=== PATIENT | male | born 1945 | race Caucasian/White ===

== ENCOUNTER → 2023-11-24 12:09 | Outpatient (REF) | payer MEDICARE, SELFPAY ==
[2023-11-24 14:25] LABS: PSA, Total - Diagnostic < 0.06 ng/ml (0.0-4.0)
== END ==
LOC: REG 12:09
PROVIDERS: ATTENDING PHYSICIAN Specialist; FAMILY PHYSICIAN Dermatology
DX: R97.20 Elevated prostate specific antigen [PSA] (principal)
CPT/HCPCS: 36415; 84153

== ENCOUNTER 2024-05-05 15:48 | Inpatient (IN) | payer MEDICARE, SELFPAY ==
[2024-05-05] VITALS (8 sets, daily range): BP systolic 115–151; BP diastolic 57–96; BMI 27.7; BMI 27.4
--- NOTE | 2024-05-05 13:23 | ED.GENMED ---
History of Present Illness
General
Chief Complaint: Breathing Problem
Time Seen by Provider: 05/05/24 13:09
History of Present Illness
History of Present Illness:
78-year-old male with history of COPD presenting to the emergency department for shortness of breath. Patient reports for the past few days he has been feeling short of breath. He checked his oxygen yesterday, noted that oxygenation was in the
80s. He is not on any home O2. Does report mild cough. Reports that he has been feeling warm, however is unsure if he has had any fever. He denies any chest pain. Denies any abdominal pain, however notes that his urine has been dark and
malodorous. He feels like his lips are really dry. His has had a cough this past week, however reports that she was negative for COVID. Patient reports hospitalization for COPD a few years ago, otherwise has been stable on home inhalers.
Denies additional acute complaints
Past History
Past History
ED Past Medical History: Hypercholesterolemia and Other (Chronic back pain, ulcerative colitis); Negative HTN or NIDDM
ED Past Surgical History: Other (AAA repair 2000 at [facility])
Social History
Tobacco: Non-smoker
Alcohol: Occasional
Personal:
Living: with family
Employment: Retired ([employer]ired [employer])
Family History
Family History: Hypertension
Phy Exam
Physical Exam
Physical Exam:
General: Well-appearing, no clinical signs of dehydration, nontoxic and in no acute distress
HEENT: protecting airway
Neck: appears supple
CV: tachycardia, regular rhythm, no evidence of cyanosis
Resp: No accessory muscle use, no increased work of breathing, lungs clear to auscultation bilaterally
Abd: Soft and non-distended, no tenderness to palpation
Extremities: No deformities, no swelling, no erythema
Neuro: alert, no focal neurologic deficit
: deferred
Rectal: deferred
Psych: Normal affect
Skin: Intact
Scores
Heart Failure Risk
Heart Failure Risk Score: Not Applicable
Course
Orders/Labs/Results
Orders:
Orders
05/05/24 13:15
Electrocardiogram (*1) Urgent
Reason for Study: Shortness of Breath
EKG- Treatment ONCE
05/05/24 13:20
0.9% Sodium Chloride 1000 ml [Nss] 1,000 ml IV BOLUS
Acetaminophen [Tylenol] 1,000 mg PO NOW STA
CR Chest - 2 Views Urgent
Comment:
Reason For Exam: hypoxic, febrile
05/05/24 13:36
COVID-19 Antigen Urgent
Source: Nasal Swab
Complete Blood Count/With Diff Urgent
Comprehensive Metabolic Panel Urgent
Venous Blood Gas Urgent
%Oxygen/Room Air: 30
Blood Culture Q30M
ROSA Source: Blood/Venous
Specimen Description:
Blood Culture Q30M
ROSA Source: Blood/Venous
Specimen Description:
Influenza A+B Rapid Molecular Urgent
ROSA Source: Nasal Swab
Specimen Description:
05/05/24 13:37
Lactic Acid Q4H
Comment: CANCEL 2nd LACTIC ACID IF 1st LACTIC ACID IS LESS THAN 2
05/05/24 14:51
Azithromycin 500 mg/250 ml [Zithromax Infusion] 500 mg in 250 ml IV NOW
CefTRIAXone [Rocephin] 1,000 mg IV NOW STA
05/05/24 Dinner
Regular
At Your Request: Full Participation
05/05/24 15:25
Admit/Transfer Patient As Directed
Co-Sign Provider:
Level of Care: Inpatient admission
Assign to:: IMU- Intermediate Care
Physician / Group: arnold
Diagnosis: pneumonia
Reason for Hospitalization: pneumonia
Expected length of stay greater than two midnights?: Yes
ELOS- Estimated Length of Stay in days: 2
I certify the patient meets the requirements for IP care: Yes
PRN Pain Medication Management As Directed
May give lesser potent ordered pain med per pt: Yes
preference::
Protocol:: Medication orders for pain may be administered in a
manner that supports deferring to patient preference
when the pt is:
- Requesting an ordered lesser potent pain medication.
Least to most potent pain medications are defined
as: acetaminophen < NSAID < tramadol < opioids
(morphine, oxycodone, hydromorphone).
- Requesting a lesser dose of the same medication IF
ORDERED.
- Requesting a less intrusive route of administration
if both routes are prescribed by the provider (PO <
IV).
05/05/24 15:26
Code Status As Directed
Resuscitation Status: Do not resuscitate
Reached after discussion with pt or family/Healthcare POA: Yes
DNR Bracelet Application ONCE
05/05/24 15:29
Respiratory Culture/Gram Stain Urgent
ROSA Source: Sputum
Specimen Description:
05/05/24 15:30
Abdomen/Pelvis w Contrast CT [CT Abd/pelvis W Iv Cont] Urgent
Comment:
Reason For Exam: abdominal pain
05/05/24 17:46
Lactic Acid Q4H
Comment: CANCEL 2nd LACTIC ACID IF 1st LACTIC ACID IS LESS THAN 2
05/05/24 18:15
Acetaminophen [Tylenol] 650 mg PO Q4HPRN PRN
Bisacodyl [Dulcolax] 5 mg PO DAILYPRN PRN
Ipratropium/Albuterol Sulfate [Duoneb] 3 ml INH R Q4HPRN PRN
Ondansetron Injectable [Zofran] 4 mg IV Q6HPRN PRN
05/05/24 18:15
Activity As Directed
Activity Level: As Tolerated
Pneumatic Compression Sleeves As Directed
Type: Knee high
Quantify Hemopytsis As Directed
Vital Signs As Directed
Frequency: Per unit guidelines
DX Deep Vein Thrombosis Video Routine
05/05/24 20:05
Urinalysis Reflex To Culture Urgent
Date Specimen was Collected: 05/05/24
Time Specimen was Collected: 20:03
Legionella Urinary Antigen Routine
ROSA Source: Urine
Specimen Description:
Strep pneumoniae Antigen Routine
ROSA Source: Urine
Specimen Description:
05/05/24 20:13
Pro-BNP [NT-proBNP] Routine
05/05/24 22:00
Famotidine [Pepcid] 10 mg PO HS
Pantoprazole [Protonix] 40 mg PO HS
Rosuvastatin Calcium [Crestor] 20 mg PO HS
Tamsulosin [Flomax] 0.4 mg PO HS
Venlafaxine Extended Release [Effexor Xr] 37.5 mg PO HS
Zolpidem Tartrate [Ambien] 10 mg PO HS
naloxegol [Movantik] See Dose Instructions PO HS
05/06/24 06:00
Complete Blood Count/With Diff IN AM
Comprehensive Metabolic Panel IN AM
05/06/24 08:00
Tiotropium Paauilo 2.5 Mcg [Spiriva Respimat 2.5 Mcg] 2 puff INH R DAILY
05/06/24 14:00
Azithromycin 500 mg/250 ml [Zithromax Infusion] 500 mg in 250 ml IV Q24H
CefTRIAXone [Rocephin] 1,000 mg IV Q24H
Abnormal Lab Results
05/05/24 05/05/24
13:36 13:37
RBC 4.41 L 10^6/uL
(4.70-6.10)
MCHC 32.6 L g/dL
(33.0-37.0)
RDW 15.6 H %
(11.5-14.5)
Abs Immat Gran (auto) 0.1 H 10^3/uL
(0-0.05)
Absolute Neuts (auto) 6.6 H 10^3/uL
(1.4-6.5)
Absolute Lymphs (auto) 0.6 L 10^3/uL
(1.2-3.4)
Absolute Monos (auto) 0.9 H 10^3/uL
(0.1-0.6)
Immature Gran % 0.6 H %
(0-0.5)
Neutrophils % 77.7 H %
(42.2-75.2)
Lymphocytes % 7.3 L %
(20.5-51.1)
Monocytes % 10.2 H %
(1.7-9.3)
Carbon Dioxide 21 L mmol/L
(22-30)
Creatinine 0.6 L mg/dL
(0.7-1.3)
Glucose 114 H mg/dl
(70-99)
Lactic Acid 2.3 H mmol/L
(0.7-2.0)
Total Bilirubin 1.4 H mg/dl
(0.2-1.3)
05/05/24 13:36
05/05/24 13:36
Vital Signs
Initial and Last Documented VS:
Initial Vital Signs
Temp Pulse Resp BP Pulse Ox
98.0 F 109 20 147/81 76
05/05/24 13:00 05/05/24 13:00 05/05/24 13:00 05/05/24 13:00 05/05/24 13:00
Last Documented Vital Signs
Temp Pulse Resp BP Pulse Ox
97.3 F 80 29 151/91 94
05/05/24 19:30 05/05/24 19:00 05/05/24 19:00 05/05/24 18:23 05/05/24 19:00
MDM/Problems Addressed
MDM/Problems Addressed:
78-year-old male with history of COPD presenting for difficulty breathing. Vital signs on arrival significant for fever, tachycardia, hypoxia.
Patient noted to be significantly hypoxic on room air on arrival, 76%. Patient placed on nasal cannula, now stabilized on 6 L. No significant increased work of breathing, mild tachypnea. Lungs however without obvious focal lung sounds. Vital
signs are meeting SIRS criteria, concern for under infection with suspected source being pulmonary. Plan for viral swabs and chest x-ray imaging. Will laboratory analysis including blood cultures and lactic acid. Will start patient on IV fluids
and administer Tylenol for fever
15:50 -chest x-ray shows worsening pulmonary fibrosis from prior x-ray imaging with possible superimposed pneumonia. In the setting of hypoxia and fever with elevated lactic acid, will start on antibiotics. Lactic acid is greater than 2, however
less than 4 and blood pressure remains stable without concern for septic shock or severe sepsis. Will continue IV fluids as clinically indicated. Patient will require admission. Patient updated and agreeable to plan
*EKG
Interpreted by ED Provider?: Yes
EKG Intrepretation Date: 05/05/24
EKG Intrepretation Time: 13:32
Interpretation: normal
Comparison EKG: no changes
Heart Rate: 95
Rate: normal
Rhythm: sinus
Kinsman: normal axis
Interval: normal interval
QRS Pattern: normal QRS
Ischemia: no ischemia
*Critical Care Note
Total Time (30-74mins, 75-104mins- exclusive of procedures): 37
comment:
The high probability of a clinically significant, sudden or life threatening deterioration of the pulmonary, sepsis system(s) required my full and direct attention, intervention and personal management. The aggregate critical care time was 37
minutes. This time is in addition to time spent performing reported procedures but includes the following:
[x] Data Review and interpretation
[x] Patient assessment and monitoring of vital signs
[x] Documentation
[x] Medication orders and management
ED Attending Note
-
Portions of this chart may have been created with voice recognition software.� Occasional wrong word or��sound alike� substitutions may have occurred due to the inherent limitations of voice recognition software.
Discharge Plan
Departure
Patient Disposition: Admit
Date of Disposition: 05/05/24
Time of Disposition: 14:54
Presentation/result/management discussed w/ accepting MD/DO: Hospitalist
Condition: Fair
Discharge Problem:
Pneumonia, Sepsis, Hypoxia
Interventions
Interventions:
*Risk Screen - Suicide Last Done: 05/05/24 13:00
*General Assessment Last Done: 05/05/24 13:00
*Neglect/Abuse Screening Last Done: 05/05/24 13:00
ED- Fall Risk Assessment Last Done: 05/05/24 16:11
*ED COVID-19 Vaccine History Last Done: 05/05/24 18:26
*Nursing Disposition Last Done: 05/05/24 18:26
ED- Cardiac Assessment Last Done: 05/05/24 16:11
ED- Pulmonary Assessment Last Done: 05/05/24 16:11
Discharge Date and Time
Discharge Date/Time: 05/05/24 18:26
[2024-05-05] MEDS: TYLENOL 1000 MG PO (13:29)
[2024-05-05] MEDS: NSS 1000 IV (13:30)
[2024-05-05 13:57] LABS: % Basophils 0.5 % (0-2); % Eosinophils 3.7 % (0-6); % Immature Granulocytes 0.6 % (0-0.5); % Lymphocytes 7.3 % (20.5-51.1); % Monocytes 10.2 % (1.7-9.3); % Neutrophils 77.7 % (42.2-75.2); Absolute Eosinophils 0.3 10^3/uL (0-0.7); Absolute Immature Granulocytes 0.1 10^3/uL (0-0.05); Absolute Lymphocytes 0.6 10^3/uL (1.2-3.4); Absolute Monocytes 0.9 10^3/uL (0.1-0.6); Absolute Neutrophils 6.6 10^3/uL (1.4-6.5); Hematocrit 40.5 % (39.0-52.0); Hemoglobin 13.2 g/dL (13.0-18.0); Mean Corp Hgb Conc. 32.6 g/dL (33.0-37.0); Mean Corpuscular Hgb 29.9 pg (27.0-31.0); Mean Corpuscular Volume 91.8 fL (80.0-94.0); Mean Platelet Volume 8.7 fL (7.4-10.4); Nucleated Red Blood Cells % 0 % (-); Platelet Count 249 10^3/uL (130-400); Red Blood Cell Count 4.41 10^6/uL (4.70-6.10); Red Cell Dist. Width 15.6 % (11.5-14.5); White Blood Cell Count 8.5 10^3/uL (4.8-10.8)
[2024-05-05 13:58] LABS: Venous Blood Gas B.E. -2.7 mmol/L (-4 to +4); Venous Blood Gas HCO3 22.6 mmol/L (22-27); Venous Blood Gas pCO2 40 mmHg (35-48); Venous Blood Gas pH 7.36 (7.32-7.43); Venous Blood Gas pO2 44 mmHg (30-50)
[2024-05-05 14:10] LABS: ALT (SGPT) 21 U/L (0-50); AST (SGOT) 25 U/L (17-59); Albumin 4.4 g/dl (3.5-5.0); Alkaline Phosphatase 88 U/L (38-126); Blood Urea Nitrogen 12 mg/dl (9-20); Calcium 9.3 mg/dl (8.4-10.2); Carbon Dioxide 21 mmol/L (22-30); Chloride 99 mmol/L (98-107); Glucose 114 mg/dl (70-99); Potassium 4.1 mmol/L (3.5-5.1); Sodium 136 mmol/L (135-145); Total Bilirubin 1.4 mg/dl (0.2-1.3); Total Protein 7.5 g/dl (6.3-8.2); eGFR > 60.00
[2024-05-05 14:26] LABS: COVID-19 Antigen Negative (Negative)
[2024-05-05 14:40] LABS: Lactic Acid 2.3 mmol/L (0.7-2.0)
--- NOTE | 2024-05-05 15:31 | HPS.HSE ---
Family Physician
-
Family Physician: Chris Owens [facility]
Chief Complaint
-
shortness of breath
History of Present Illness
78-year-old male past medical history of ILD,, COPD, hyperlipidemia, chronic back pain on opiates, abdominal aortic aneurysm status post repair with stent a year ago, prostate cancer, insomnia, presenting for shortness of breath ongoing for the past
few days. He checked his oxygen level which was in the 80s yesterday. He has mild cough which is productive a little bit with slight amount of blood-tinged sputum. He has been feeling warm and thinks he may have had a fever. Denies chest pain.
He has been having ongoing abdominal discomfort over the past several months sometimes with bloating. Sometimes radiates to back. Denies any weight loss. Denies any nausea or vomiting. He does have a history of opioid-induced constipation but
did have a bowel movement yesterday.
He did have abdominal aortic aneurysm repair within the past year with stent placement.
His had a cough this past week. She was negative for COVID.
His urine has been dark and malodorous. Denies any blood in the urine.
Medical History
Past Medical History
Past Medical History: Reports Other ( ILD,, COPD, hyperlipidemia, chronic back pain on opiates, abdominal aortic aneurysm status post repair with stent a year ago, prostate cancer, insomnia,)
Past Surgical History: Reports None
Social History
Tobacco: Former Smoker
Alcohol: None
Drug: None
Family History
Family History: Not pertinent
Allergies / Home Medications
Allergies reflects when Allergies were last updated in [facility].
Home Medications with original date entered in [facility]
Allergy/Medication List:
Allergies
Allergy/AdvReac Type Severity Reaction Status Date / Time
fentanyl Allergy Intermediate Rash Verified 05/05/24 13:04
Home Medications
naloxegol 25 mg tablet (Movantik) 25 mg PO HS Gastrointestinal issue 03/24/22
rosuvastatin 20 mg tablet 20 mg PO HS High cholesterol 03/24/22
zolpidem 10 mg tablet (Ambien) 10 mg PO HS insomnia 03/24/22
albuterol sulfate 90 mcg/actuation aerosol inhaler (Ventolin HFA) 2 puff inhalation R Q6HPRN PRN shortness of breath or wheezing 05/05/24
bisacodyl 5 mg tablet,delayed release (Dulcolax (bisacodyl)) 5 mg PO DAILYPRN PRN constipation 05/05/24
famotidine 10 mg tablet 10 mg PO HS Gastrointestinal Issue 05/05/24
oxycodone-acetaminophen 10 mg-325 mg tablet 1 tab PO Q4H pain 05/05/24
pantoprazole 40 mg tablet,delayed release 40 mg PO HS Gastrointestinal Issue 05/05/24
tamsulosin 0.4 mg capsule 0.4 mg PO HS 05/05/24
tiotropium bromide 2.5 mcg/actuation mist for inhalation (Spiriva Respimat) 2 inh inhalation R DAILY 05/05/24
venlafaxine 37.5 mg capsule,extended release 24 hr 37.5 mg PO HS 05/05/24
Review of Systems
-
History Source: Patient
A 12 point ROS was completed and negative except as noted: Yes
Constitutional: Reports No Symptoms
EENT: Reports No Symptoms
Respiratory: Reports See HPI
Cardiac: Reports No Symptoms
Abdomen/GI: Reports No Symptoms
: Reports No Symptoms
Musculoskeletal: Reports No Symptoms
Skin: Reports No Symptoms
Neurological: Reports No Symptoms
Endocrine: Reports No Symptoms
Hematologic/Lymphatic: Reports No Symptoms
Psych: Reports No Symptoms
Physical Exam
Vital Signs
Vital Signs
Temp Pulse Resp BP Pulse Ox
98.0 F 88 25 147/81 91
05/05/24 13:00 05/05/24 14:45 05/05/24 14:45 05/05/24 13:00 05/05/24 14:45
Physical Exam
General: Well Developed, Well Nourished and No Apparent Distress
HEENT: NormoCephalic, Moist mucous membranes and Atraumatic
Respiratory: Rales
Cardiac: S1/S2 and Regular Rhythm; No Murmur or Rub
GI: Soft, Non Tender, Non Distended and Normal Bowel Sounds; No Organomegaly
Rectal: Deferred by Provider
Musculoskeletal: No Clubbing, No Cyanosis and No Edema
Skin: No Rash
Neuro: Nonfocal/grossly intact
Laboratory Results
-
05/05/24 13:36
05/05/24 13:36
Laboratory Results
Lactic Acid 2.3 mmol/L (0.7-2.0) H 05/05/24 13:37
Total Bilirubin 1.4 mg/dl (0.2-1.3) H 05/05/24 13:36
AST 25 U/L (17-59) 05/05/24 13:36
ALT 21 U/L (0-50) 05/05/24 13:36
Alkaline Phosphatase 88 U/L (38-126) 05/05/24 13:36
Data Reviewed
-
Lab Data: Labs Reviewed by me
Old Records: Reviewed
Impression/Plan
-
IMPRESSION:
PLAN:
# Hypoxemic respiratory insufficiency secondary to superimposed pneumonia on worsening of ILD
-Bilateral crackles in all lung zambrano without wheezing
-Patient currently on 10 L mid flow
-Slight amount of hemoptysis, quantify hemoptysis
-Check blood cultures
-Ceftriaxone/azithromycin
-DuoNebs as needed
-Pulmonary consulted
# Chronic abdominal discomfort unclear etiology
-Suspect could be due to constipation versus gastritis
-Check CT abdomen pelvis
-Doubt that this is related to abdominal aortic aneurysm repair
# Dark/malodorous urine
-Check urinalysis
History of COPD
Former smoker
-Continue tiotropium
Hyperlipidemia
-Continue statin
Chronic back pain on opiates
-Continue Percocet
Abdominal aortic aneurysm status post repair
Insomnia
-Continue Ambien
Anxiety/depression
-Continue venlafaxine
History of prostate cancer
-Continue tamsulosin
GERD
-Continue Pepcid, Protonix
Opioid-induced constipation
-Continue Movantik
DNR/DNI
DVT prophylaxis�SCDs
Regular diet
[2024-05-05] MEDS: ROCEPHIN 1000 MG IV (15:34)
[2024-05-05] MEDS: ZITHROMAX INFUSION 250 IV (15:37)
--- NOTE | 2024-05-05 19:11 | PTCARENOTE ---
Received patient on admission from ED via stretcher with 11L midflow in use. Patient walked from stretcher to bed with assistance from ED RN. +GANDARA noted but patient not c/o SOB. HRR, ST on monitor; POx 94-95%, so O2 decreased to 10L. Lungs
diminished and coarse bibasilar. Ox3, at bedside; patient instructed in call pulido system and not to get OOB unless accompanied by staff. Report given to oncoming shift.
[2024-05-05 20:13] LABS: Urine Albumin Negative (Neg - Trace); Urine Bilirubin Negative (Negative); Urine Character Clear (Clear); Urine Color Yellow; Urine Glucose Negative (Negative); Urine Ketone Negative (Negative); Urine Leukocyte Negative (Negative); Urine Nitrite Negative (Negative); Urine Occult Blood Negative (Negative); Urine Urobilinogen Negative (Neg - 1+)
[2024-05-05 20:45] LABS: NT-proBNP 735 pg/ml
[2024-05-05] MEDS: ROXICODONE PO ×2 (21:57→23:36)
[2024-05-05] MEDS: CRESTOR 20 MG PO (21:58)
[2024-05-05] MEDS: AMBIEN 10 MG PO (21:58)
[2024-05-05] MEDS: PEPCID 10 MG PO (21:58)
[2024-05-05] MEDS: EFFEXOR XR 37.5 MG PO (21:58)
[2024-05-05] MEDS: PROTONIX 40 MG PO (21:58)
[2024-05-05] MEDS: TYLENOL PO ×2 (21:58→23:36)
[2024-05-05] MEDS: FLOMAX 0.4 MG PO (21:58)
--- NOTE | 2024-05-05 23:13 | PTCARENOTE ---
Assumed care of pt at shift change; Pt resting comfortably in bed; OOB x 1 assist to bathroom, Pt very GANDARA. SpO2 down to low 80's with exertion on 10L O2 via MF cannula. Assisted back to bed with SpO2 returning to 92-94%, Instructed Pt to use
urinal on side of bed to reduce amount of exertion. AAO x 3; NSR with PAC's on monitor. Will continue to monitor and assess.
[2024-05-06] VITALS (12 sets, daily range): BP systolic 111–145; BP diastolic 55–109; BMI 27.6
[2024-05-06] MEDS: ROXICODONE 10 MG PO ×3 (02:40→20:26)
[2024-05-06] MEDS: TYLENOL 325 MG PO ×2 (02:40→20:24)
[2024-05-06] MEDS: DUONEB 3 ML INH ×5 (03:08→17:49)
[2024-05-06 05:35] LABS: ALT (SGPT) 22 U/L (0-50); AST (SGOT) 25 U/L (17-59); Albumin 3.4 g/dl (3.5-5.0); Alkaline Phosphatase 78 U/L (38-126); Blood Urea Nitrogen 10 mg/dl (9-20); Calcium 8.6 mg/dl (8.4-10.2); Carbon Dioxide 20 mmol/L (22-30); Chloride 103 mmol/L (98-107); Estimated Creatinine Clearance 95 ml/min; Glucose 151 mg/dl (70-99); Potassium 3.9 mmol/L (3.5-5.1); Sodium 134 mmol/L (135-145); Total Bilirubin 0.9 mg/dl (0.2-1.3); eGFR > 60.00
[2024-05-06 05:39] LABS: % Basophils 0.2 % (0-2); % Eosinophils 2.8 % (0-6); % Immature Granulocytes 0.4 % (0-0.5); % Lymphocytes 6.8 % (20.5-51.1); % Monocytes 9.9 % (1.7-9.3); % Neutrophils 79.9 % (42.2-75.2); Absolute Eosinophils 0.2 10^3/uL (0-0.7); Absolute Lymphocytes 0.6 10^3/uL (1.2-3.4); Absolute Monocytes 0.8 10^3/uL (0.1-0.6); Absolute Neutrophils 6.6 10^3/uL (1.4-6.5); Hematocrit 31.8 % (39.0-52.0); Hemoglobin 10.6 g/dL (13.0-18.0); Mean Corp Hgb Conc. 33.3 g/dL (33.0-37.0); Mean Platelet Volume 8.8 fL (7.4-10.4); Nucleated Red Blood Cells % 0 % (-); Platelet Count 192 10^3/uL (130-400); Red Blood Cell Count 3.42 10^6/uL (4.70-6.10); Red Cell Dist. Width 15.5 % (11.5-14.5); White Blood Cell Count 8.2 10^3/uL (4.8-10.8)
--- NOTE | 2024-05-06 07:55 | CON.VAS ---
Consultation
Consultation Request
Performing Provider: Ankur
Reason for Consultation: AAA/abdominal pain
Medical History
-
Chief Complaint: Shortness of breath
History of Present Illness:
78-year-old male with past medical history COPD, hyperlipidemia, chronic back pain, open AAA repair in 1999 at [facility], recent (3 to 6 months) iliac stenting at [facility], prostate cancer in remission presented to the ER with shortness of breath last night.
Patient had noticed his oxygen levels had been in the 80s for most of the day. Had a somewhat productive cough with some blood-tinged sputum. Was unsure if he had had fevers. COVID-negative. On admission patient admitted to abdominal discomfort
consistently over the last few months. Patient is chronically on opiates for back pain and has issues with constipation and bloating.
CT of the abdomen:
'Small hiatal hernia.
Markedly limited evaluation of intestinal tract without oral contrast, cannot exclude acute inflammatory/infectious bowel pathology. No intestinal obstruction or free air.
Suprarenal abdominal aortic aneurysm measuring approximately 5.6 cm in greatest dimension.
Findings suggesting right common iliac artery stent.
0.9 cm slightly hyperenhancing splenic lesion most likely a benign hemangioma.'
Vascular consult for AAA.
Patient seen at bedside this a.m. Patient resting comfortably. When questioned about his abdominal discomfort patient states he has had consistent mild abdominal discomfort since his open AAA repair in [address] [facility] [address] Ray. On palpation
patient has mild discomfort to the aorta. Patient states this is a discomfort that he lives with and it is 'tolerable'. Patient states his discomfort has not changed. Nothing makes it better or worsens it. He tells me that the pain does not
radiate anywhere.
Patient follows with his vascular surgeon (name he cannot remember since Dr. Ray retired) at [facility] very closely. Was seen as recently as 3 months ago. Patient wishes to continue to follow at [facility] for his vascular issues.
Past Medical History
Past Medical History: Cancer (Prostate, in remission), COPD, HTN, Hypercholesterolemia and Other (Chronic back pain, AAA, insomnia)
Past Surgical History: Other (Open AAA repair in [address] [facility] [address] Ray, iliac stenting 3 to 6 months ago at [facility])
Social History
Tobacco: Former Smoker
Drug: None
Personal: Single
Family History
Family History: Reviewed & Not Pertinent
Allergies / Home Medications
Allergy/AdvReac Type Severity Reaction Status Date / Time
fentanyl Allergy Intermediate Rash Verified 05/05/24 13:04
�Medication �Instructions �Recorded �Confirmed �Type
naloxegol 25 mg tablet (Movantik) 25 mg PO HS Gastrointestinal issue 03/24/22 05/05/24 History
rosuvastatin 20 mg tablet 20 mg PO HS High cholesterol 03/24/22 05/05/24 History
zolpidem 10 mg tablet (Ambien) 10 mg PO HS insomnia 03/24/22 05/05/24 History
albuterol sulfate 90 mcg/actuation 2 puff inhalation R Q6HPRN PRN 05/05/24 05/05/24 History
aerosol inhaler (Ventolin HFA) shortness of breath or wheezing
bisacodyl 5 mg tablet,delayed 5 mg PO DAILYPRN PRN constipation 05/05/24 05/05/24 History
release (Dulcolax (bisacodyl))
famotidine 10 mg tablet 10 mg PO HS Gastrointestinal Issue 05/05/24 05/05/24 History
oxycodone-acetaminophen 10 mg-325 1 tab PO Q4H pain 05/05/24 05/05/24 History
mg tablet
pantoprazole 40 mg tablet,delayed 40 mg PO HS Gastrointestinal Issue 05/05/24 05/05/24 History
release
tamsulosin 0.4 mg capsule 0.4 mg PO HS 05/05/24 05/05/24 History
tiotropium bromide 2.5 2 inh inhalation R DAILY 05/05/24 05/05/24 History
mcg/actuation mist for inhalation
(Spiriva Respimat)
venlafaxine 37.5 mg 37.5 mg PO HS 05/05/24 05/05/24 History
capsule,extended release 24 hr
Review of Systems
-
History Source: Patient
All other systems: Negative unless noted
Constitutional: Reports No Symptoms
EENT: Reports No Symptoms
Respiratory: Reports Other (Shortness of breath)
Cardiac: Reports No Symptoms
Vascular: Denies Leg Pain / Claudication
Abdomen/GI: Reports Abdominal Pain (Mild)
: Reports No Symptoms
Musculoskeletal: Reports No Symptoms
Skin: Reports No Symptoms
Neurological: Reports No Symptoms
Physical Exam
Vital Signs
Temp Pulse Resp BP Pulse Ox
99.1 F 90 17 133/80 92
05/06/24 03:19 05/06/24 06:00 05/06/24 06:00 05/06/24 06:00 05/06/24 07:30
Lab Results
05/06/24 04:51
05/06/24 04:51
Zkh-P-Pvkaxirazbh Pept 735 pg/ml 05/05/24 20:13
Physical Exam
General: No Apparent Distress
HEENT: Normocephalic and Atraumatic
Respiratory: Other (Slightly dyspneic when speaking in full sentences, recovers with rest)
Cardiac: Negative JVD
GI: Soft, Non Distended and Other (Mild tenderness to palpation-patient states is his baseline since his open AAA)
Musculoskeletal: No Clubbing and No Cyanosis
Skin: Warm
Neuro: Awake, Alert and Oriented
Psych: Calm
Pulses: Bilateral Femoral: +2
Assessment / Plan
-
78-year-old male here with shortness of breath/COPD
History of open AAA repair in 1999 and recent iliac stenting (3 to 6 months ago ), patient states he has had chronic abdominal discomfort since his surgery in 1999. Per the patient his discomfort is unchanged and tolerable.
CT suggests suprarenal abdominal aortic aneurysm measuring approximately 5.6 cm in greatest dimension
Plan:
-Will discuss with Attending. Patients discomfort does not seem to be unchanged from his baseline likely can follow-up as outpatient with his vascular surgeon at [facility].
Data Reviewed
-
CT Scan: Discussed with Patient
Labs: Labs Reviewed by me
--- NOTE | 2024-05-06 08:14 | W.PN.HOSP.TC ---
Today's Communication/Plan
-
see PN
Assessment / Plan
Assessment / Plan
78yo M with PMHx of ILD, GERD, insomnia, HLD, AAA s/p repair in 2000 and 6mo ago, BPH came with SOB became apparent 1 week before admission, admitted for ILD flare with pneumonia. Patient noticed dark-colored sputum since the onset of dyspnea, with
concern for hemoptysis on admission
Also few months of non-specific abdominal dyscomfort
A/P:
#Acute hypoxic respiratory failure on 10L midline upon discharge 2/2 ILD flare and possible pneumonia with unspecified organism
#Concern for ABPA vs hemoptysis
COVID-19 and influenza PCR neg
Check procalcitonin
check sputum Cx
legionella and S.pneumonia urinary AG pending
Bcx pending
Ceftriaxone/Azithromycin
Wean off O2 if possible
Bronchodilators
Taper steroids
Pulm consult
Check CT chest
avoid antiplatelets and anticoagulation
ProBNP elevated to 735 (previous 278 in 2021) - reasonable for Echo
#AAA s/p repair
with chronic abd discomfort
CT abd with 5.6cm AAA and illiac stent
Vascular consult
#Chronic mild anemia
anemia w/u
check FOBT
#bilirubinemia on admission
minimal
Resolved
#HLD
#Chronic pain
#GERD
#anxiety d/o
#Insomnia
#BPH with PMHX of prostate CA
#Opioid-induced constipation, chronic
cont home meds
#Irregular HR
mostly sinus on tele
cont tele
EKG
DVT ppx SCDs since also concern for hemoptysis
FUll code
I have spent at least 59min reviewing the chart, test results, communication with consukltants and direct patient care
Anticipated Discharge: > 48 hours
Subjective/Interval History
-
Date of Service: May 06, 2024
Objective Data
-
Labs:
Laboratory Results
05/06/24
04:51
WBC 8.2
Hgb 10.6 L
Hct 31.8 L
Plt Count 192 D
Sodium 134 L
Potassium 3.9
Chloride 103
Carbon Dioxide 20 L
BUN 10
Creatinine 0.6 L
Glucose 151 H
Calcium 8.6
Total Bilirubin 0.9
AST 25
ALT 22
Alkaline Phosphatase 78
Vital Signs:
Vital Signs
Temp Pulse Resp BP Pulse Ox
99.1 F 87 26 133/80 89
05/06/24 03:19 05/06/24 08:01 05/06/24 08:01 05/06/24 06:00 05/06/24 08:01
I&O
05/05/24 05/06/24 05/07/24
06:59 06:59 06:59
Intake Total 480 / 480
Output Total 950 / 950
Balance -470 / -470
Review of Systems
-
History Source: Patient
All other systems: Reviewed and negative
Respiratory: Reports Cough, Hemoptysis and Trouble Breathing
Physical Exam
-
General: No Apparent Distress
HEENT: Normocephalic and Atraumatic
Respiratory: Clear to Auscultation
Cardiac: Irregular Rhythm
GI: Soft, Nontender and Nondistended
Genito-urinary: No Costovertebral Tender
Skin: Warm
Neuro: Awake, Alert, Oriented and AO x 3
Psych: Calm
[2024-05-06] MEDS: ADVAIR HFA 230/21 MCG INHALER 2 PUFF INH ×2 (08:22→17:49)
--- NOTE | 2024-05-06 09:42 | CM ---
Chart reviewed; IA completed at bedside.
Pt admitted with Interstitial lung disease. 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 Currently on midflow; O2 sat 90 on 10L.
Marcell lives with his in a 2SH with 1STE and a full flight to the 2nd floor; (I) at baseline. No hx of VN/SNF/DME
Plan: CM to follow to coordinate discharge planning needs. Watch for home O2 needs
Pharmacy: [facility] in [place]
Pt PCP: Dr. Chris Yang
[2024-05-06] MEDS: SOLU-MEDROL PF 60 MG IV (10:05)
--- NOTE | 2024-05-06 10:45 | CON.PUL ---
Consultation
Consultation Request
Date/Time Consultation Requested: 05/06/24
Date/Time Consultation Performed: 05/06/24
Performing Provider: Juan
Reason for Consultation: ILD, hypoxemia
Medical History
-
History of Present Illness:
Patient is a 78-year-old male with previous history of ILD, COPD, hyperlipidemia presenting to ER for shortness of breath that has been ongoing for the past few days. He reportedly had oxygen desaturation at home into the 80s. He has also
comorbid mild coughing, productive mucus, abdominal discomfort, bloating. In ER, he was hypoxemic, now placed on 10L MF. CT showing worsening groundglass opacities and ILD findings compared to prior. He does feel his functional capacity has
declined. Was started on IV steroids and admitted to IMU.
Past Medical History
Past Medical History: Other (see list below)
Social History
Tobacco: Non-smoker
Alcohol: None
Drug: None
Family History
Family History: Reviewed & Not Pertinent
Allergies / Home Medications
Allergies
Allergy/AdvReac Type Severity Reaction Status Date / Time
fentanyl Allergy Intermediate Rash Verified 05/05/24 13:04
Home Medications
�Medication �Instructions �Recorded �Confirmed �Last Taken �Type
naloxegol 25 mg tablet (Movantik) 25 mg PO HS Gastrointestinal issue 03/24/22 05/05/24 05/04/24 History
rosuvastatin 20 mg tablet 20 mg PO HS High cholesterol 03/24/22 05/05/24 05/04/24 History
zolpidem 10 mg tablet (Ambien) 10 mg PO HS insomnia 03/24/22 05/05/24 05/04/24 History
albuterol sulfate 90 mcg/actuation 2 puff inhalation R Q6HPRN PRN 05/05/24 05/05/24 05/05/24 History
aerosol inhaler (Ventolin HFA) shortness of breath or wheezing
bisacodyl 5 mg tablet,delayed 5 mg PO DAILYPRN PRN constipation 05/05/24 05/05/24 Unknown History
release (Dulcolax (bisacodyl))
famotidine 10 mg tablet 10 mg PO HS Gastrointestinal Issue 05/05/24 05/05/24 05/04/24 History
oxycodone-acetaminophen 10 mg-325 1 tab PO Q4H pain 05/05/24 05/05/24 05/05/24 History
mg tablet
pantoprazole 40 mg tablet,delayed 40 mg PO HS Gastrointestinal Issue 05/05/24 05/05/24 05/04/24 History
release
tamsulosin 0.4 mg capsule 0.4 mg PO HS 05/05/24 05/05/24 Unknown History
tiotropium bromide 2.5 2 inh inhalation R DAILY 05/05/24 05/05/24 05/05/24 History
mcg/actuation mist for inhalation
(Spiriva Respimat)
venlafaxine 37.5 mg 37.5 mg PO HS 05/05/24 05/05/24 05/04/24 History
capsule,extended release 24 hr
Review of Systems
-
History Source: Patient
All other systems: Negative unless noted
Vitals / Labs / Diagnostic Testing
Vital Signs
Temp Pulse Resp BP Pulse Ox
98.2 F 101 31 123/109 88
05/06/24 08:28 05/06/24 10:00 05/06/24 10:00 05/06/24 10:00 05/06/24 10:00
Lab Data
05/06/24 04:51
05/06/24 04:51
Microbiology
05/05/24 22:04 Sputum Respiratory Culture - Final
05/05/24 22:04 Sputum Gram Stain - Final
05/05/24 20:05 Urine Legionella Urinary Antigen - Final
Negative for Legionella pneumophila Serogroup 1 antigen.
A negative result does not rule out the possiblity of
Legionella infection due to other serogroups or species of
Legionella. Clinical correlation is recommended.
05/05/24 20:05 Urine Streptococcus pneumoniae Antigen (M - Final
Negative for Streptococcus pneumoniae antigen.
A negative result does not exclude infection with
Streptococcus pneumoniae. Clinical correlation is
recommended.
05/05/24 13:36 Nasal Swab Influenza Types A & B (AMAIRANI) - Final
Negative for Influenza A & B, NAAT
Negative results must be combined with clinical observations
and patient history.
Nucleic Acid Amplification test (NAAT)performed on the
[employer] platform.
Diagnostic Testing:
Physical Exam
-
HEENT: Normocephalic, Anicteric and Moist Mucous Membranes
Cardiovascular: S1/S2 and Regular Rhythm
Respiratory: Rales and Non-Labored Respirations
GI: Soft, Non Distended and Non Tender
Neurology: Awake, Alert, Oriented and No Motor Deficits
Skin: Warm, Dry and Good Color
General: Comfortable and Other (NAD)
Assessment
-
Patient is a 78-year-old male with previous history of ILD, COPD, hyperlipidemia presenting to ER for shortness of breath that has been ongoing for the past few days. He reportedly had oxygen desaturation at home into the 80s. He has also
comorbid mild coughing, productive mucus, abdominal discomfort, bloating. In ER, he was hypoxemic, now placed on 10L MF. CT showing worsening groundglass opacities and ILD findings compared to prior. He does feel his functional capacity has
declined. We are consulted for eval.
Acute hypoxic respiratory failure on 10L MF
Acute on chronic SOB
Suspect progression of pulmonary fibrosis
Abnormal CT, increased GGOs
Lactic acidosis
Hyponatremia, mild
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
CT Chest 03/24/22 revealed mild-moderate centrilobular and paraseptal emphysematous changes; also with fibrosis/traction bronchiectasis/honeycombing
DLCO is moderately impaired at 45%. Last 6MWT showing wesley at 88% with quick recovery, not needing O2
COPD/emphysema, follows Dr Martinez
PFT obtained showing no obstruction and improved from prior.
Spiriva taken daily, continue albuterol inhaler as needed.
Mediastinal LAD: unknown chronicity and etiology, could be associated with ILD
AAA repair 1999 [facility]
Former smoker: 2 ppd for 40 y, quit Jul 1999
Chronic lumbar pain, on oxycodone
HLD
Reported ulcerative colitis
Constipation
Insomnia, on zolpidem
COVID vaccinated x2, boosted x2 (last 8 m SUPERVISOR OPERATIONS)
Fracture proximal phalanx of lesser toe (L) Mar 2021
Plan:
O2 protocol, maintained on 10L
Keep POx 90-92%
Home O2 evaluation PTD (not on home O2)-- we discussed that this may be a new need for him
SOB-progressive
CT chest reviewed with progressed findings, possible related to progression of ILD
But need to rule out infection/volume
proBNP 735
PCT pending
Placed on CAP coverage
Sputum cx ordered, first sample inadequate
Repeat as able
ECHO pending
Continue systemic CSs, IV Solu-Medrol dose reduced--40 q8
High dose causing hyperglycemia
Can slowly wean over next several days
DNs qid and prn
Guaifenesin-Mucolytic to continue
Asp precs
Acapella valve
Doubt diffuse alveolar hemorrhage given chronically stable Hgb
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
PT/OT, OOB if able
Per patient:
NM ST 1 y ago, colonoscopy 3 m ago, prostate exam 1 y ago: all normal
Flu shot 2020
COVID vaccinated and boosted
Discussed in detail with Mr Richards, all questions answered to satisfaction
Reviewed OP records
Diagnostic tests:
CXR PA/lat 03-26, c/w arc welder CT films
CXR 09-04-13: c/w 10-28-11- No gross parenchymal abnormalities. Mild elevation of R diaphragm
CT chest 05/06/24- No evidence of pulmonary embolus. Severe bilateral groundglass densities as described above. Significantly progressed. Probable interstitial lung disease. Superimposed pneumonia cannot be excluded. Moderate mediastinal and mild
left hilar lymphadenopathy. Likely reactive. Stable. Moderate emphysematous disease. Progressed.
Chest CTA 03-24-22 IMPRESSION:
1. No evidence of pulmonary embolism.
2. Findings suggesting scattered areas of pneumonitis/pneumonia and probable pulmonary edema/hemorrhage.
3. Underlying chronic interstitial changes.
TTE: pending
PFTs: as above
Reports and relevant images were personally reviewed.
Total time spent on this consultation __78__ minutes which includes review of history, physical exam, medications, laboratory data, personal review of imaging, extensive review of outpatient records, discussion with care team and respiratory therapy.
--- NOTE | 2024-05-06 12:44 | SUR.OPER ---
Patient 87-90% 10L Midflow. Patient with Dyspnea and tachypnea with eating, talking and repositioning in bed. Patient stood at bedside and O2 74-78% on 10L midflow, RR 44. Patient instructed to use urinal to void in bed, no OOB at present. Patient
verbalized understanding.
[2024-05-06 13:48] LABS: Procalcitonin 0.05 ng/ml (0.0-0.25)
[2024-05-06] MEDS: ROCEPHIN 1000 MG IV (14:12)
[2024-05-06] MEDS: STERILE WATER FOR INJECTION 10 ML IV (14:12)
[2024-05-06] MEDS: ZITHROMAX INFUSION 250 IV (14:13)
[2024-05-06] MEDS: SOLU-MEDROL PF 40 MG IV (17:51)
--- NOTE | 2024-05-06 20:57 | PTCARENOTE ---
Pt noted to have increased work of breathing with SpO2 ~ 80%; O2 increased to 15L MF with pulse ox 84-86%; Contacted GEOSCIENCE LABORATORY TECHNICIAN, rec'd order for High Flow nasal cannula. RT notified - set up High Flow @ 50L/75%. RT reported that Pt's R nare is closed
off from a deviated septum which may affect flow. Will continue to monitor and assess.
[2024-05-06] MEDS: EFFEXOR XR 37.5 MG PO (22:34)
[2024-05-06] MEDS: AMBIEN 10 MG PO (22:34)
[2024-05-06] MEDS: PEPCID 10 MG PO (22:34)
[2024-05-06] MEDS: FLOMAX 0.4 MG PO (22:34)
[2024-05-06] MEDS: PROTONIX 40 MG PO (22:34)
[2024-05-06] MEDS: CRESTOR 20 MG PO (22:34)
[2024-05-07] VITALS (12 sets, daily range): BP systolic 108–134; BP diastolic 51–81; BMI 27.1
[2024-05-07] MEDS: SOLU-MEDROL PF 40 MG IV ×3 (01:17→17:28)
[2024-05-07 07:04] LABS: % Basophils 0.1 % (0-2); % Immature Granulocytes 0.4 % (0-0.5); % Lymphocytes 3.8 % (20.5-51.1); % Monocytes 4.4 % (1.7-9.3); % Neutrophils 91.3 % (42.2-75.2); Absolute Lymphocytes 0.3 10^3/uL (1.2-3.4); Absolute Monocytes 0.4 10^3/uL (0.1-0.6); Absolute Neutrophils 7.6 10^3/uL (1.4-6.5); Hematocrit 31.4 % (39.0-52.0); Hemoglobin 10.4 g/dL (13.0-18.0); Mean Corp Hgb Conc. 33.1 g/dL (33.0-37.0); Mean Corpuscular Hgb 30.5 pg (27.0-31.0); Mean Corpuscular Volume 92.1 fL (80.0-94.0); Mean Platelet Volume 8.8 fL (7.4-10.4); Nucleated Red Blood Cells % 0 % (-); Platelet Count 201 10^3/uL (130-400); Red Blood Cell Count 3.41 10^6/uL (4.70-6.10); Red Cell Dist. Width 15.2 % (11.5-14.5); White Blood Cell Count 8.3 10^3/uL (4.8-10.8)
--- NOTE | 2024-05-07 07:20 | W.PN.VS ---
Today's Communication / Plan
-
no need for acute vasc intervention
can followup with unnamed vascular surgeon at [facility] per his routine
call with any questions
Assessment/Plan
-
AAA - ope repair at [place] in past
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
- no signs of rupture
- patient in no distress from this
- patient wants to follow up with surgeon at [facility] (who's name he cant remember)
- no need for acute vascular intervention
Subjective Data
-
Date of Service: May 07, 2024
Asked to eval for AAA
chronic lower abd pain - unchanged in past year
no acute symptoms
Objective Data
-
Vital Signs
Temp Pulse Resp BP Pulse Ox
97.7 F 89 19 120/68 89
05/07/24 03:00 05/07/24 06:00 05/07/24 06:00 05/07/24 06:00 05/07/24 06:00
Intake and Output
05/06/24 05/07/24 05/08/24
06:59 06:59 06:59
Intake Total 480 / 480 1030 / 1030
Output Total 950 / 950 1200 / 1200
Balance -470 / -470 -170 / -170
Intake:
Oral fluids 480 / 480 780 / 780
IV piggybacks 250 / 250
Output:
Urine, Voided 950 / 950 1200 / 1200
Lab Results
05/07/24 06:40
Calcium 8.6 mg/dl (8.4-10.2) 05/06/24 04:51
Total Bilirubin 0.9 mg/dl (0.2-1.3) 05/06/24 04:51
AST 25 U/L (17-59) 05/06/24 04:51
ALT 22 U/L (0-50) 05/06/24 04:51
Alkaline Phosphatase 78 U/L (38-126) 05/06/24 04:51
Total Protein 6.0 g/dl (6.3-8.2) L 05/06/24 04:51
Albumin 3.4 g/dl (3.5-5.0) L 05/06/24 04:51
Physical Exam
-
rrr
ctab
min tenderness lower abd with deep palpation
no tenderness in mid abdomen
+ PT pulses bilat
[2024-05-07 07:23] LABS: ALT (SGPT) 23 U/L (0-50); AST (SGOT) 24 U/L (17-59); Albumin 3.4 g/dl (3.5-5.0); Alkaline Phosphatase 76 U/L (38-126); Blood Urea Nitrogen 14 mg/dl (9-20); Calcium 9.1 mg/dl (8.4-10.2); Carbon Dioxide 24 mmol/L (22-30); Chloride 101 mmol/L (98-107); Estimated Creatinine Clearance 95 ml/min; Glucose 163 mg/dl (70-99); Iron 45 ug/dl (49-181); LDH 358 U/L (120-246); Potassium 4.3 mmol/L (3.5-5.1); Sodium 134 mmol/L (135-145); Total Bilirubin 0.6 mg/dl (0.2-1.3); Total Protein 6.1 g/dl (6.3-8.2); eGFR > 60.00
[2024-05-07 07:25] LABS: Reticulocyte Count 2.9 % (0.4-2.8)
[2024-05-07] MEDS: ADVAIR HFA 230/21 MCG INHALER 2 PUFF INH ×2 (07:27→20:42)
[2024-05-07] MEDS: DUONEB 3 ML INH ×4 (07:27→20:42)
[2024-05-07 07:32] LABS: Percent Saturation 18 % (20-50); Total Iron Binding Capacity 247 ug/dl (261-462)
[2024-05-07 08:41] LABS: Folate 5.1 ng/ml (2.76-20); Vitamin B12 239 pg/ml (239-931)
--- NOTE | 2024-05-07 09:58 | W.PN.HOSP.TC ---
Today's Communication/Plan
-
cont steroids, Abx
Pulm follow up
Patient confirmed DNI, but also wants to communicate with - will call her as per his request
Assessment / Plan
Assessment / Plan
78yo M with PMHx of ILD, GERD, insomnia, HLD, AAA s/p repair in 2000 and 6mo ago, BPH came with SOB became apparent 1 week before admission, admitted for ILD flare with pneumonia. Patient noticed dark-colored sputum since the onset of dyspnea, with
concern for hemoptysis on admission.
Also few months of non-specific abdominal discomfort
A/P:
#Acute hypoxic respiratory failure on 10L midline upon discharge 2/2 ILD flare and possible pneumonia with unspecified organism
#Concern for ABPA vs hemoptysis
COVID-19 and influenza PCR neg
check sputum Cx
legionella and S.pneumonia urinary AG pending
Bcx NTD
Ceftriaxone/Azithromycin - reasonable to cont even with neg Procalcitonin, plan 5 days
Wean off O2 if possible
Bronchodilators
Taper steroids
Pulm consult
CT chest: No PE, Severe bilateral groundglass densities as described above. Significantly progressed. Probable interstitial lung disease. Superimposed pneumonia cannot be excluded
avoid antiplatelets and anticoagulation with reported hemoptysis
ProBNP elevated to 735 (previous 278 in 2021) - reasonable for Echo - pending
#AAA s/p repair
with chronic abd discomfort
CT abd with 5.6cm AAA and iliac stent
Vascular consult: known postOP discomfort without concerning findings on CT
#Anemia of chronic disease
#B12 deficiency
Cyanocobalamin IM
High retics and mildly elevated LDH - check GIOVANNA
check FOBT
#bilirubinemia on admission
minimal
Resolved
#HLD
#Chronic pain
#GERD
#anxiety d/o
#Insomnia
#BPH with PMHX of prostate CA
#Opioid-induced constipation, chronic
cont home meds
#Irregular HR
mostly sinus on tele
cont tele
EKG
DVT ppx SCDs since also concern for hemoptysis
FUll code
I have spent at least 59min reviewing the chart, test results, communication with consultants and direct patient care
Anticipated Discharge: > 48 hours
Subjective/Interval History
-
Date of Service: May 07, 2024
Objective Data
-
Labs:
Laboratory Results
05/07/24
06:40
WBC 8.3
Hgb 10.4 L
Hct 31.4 L
Plt Count 201
Sodium 134 L
Potassium 4.3
Chloride 101
Carbon Dioxide 24
BUN 14
Creatinine 0.5 L
Glucose 163 H
Calcium 9.1
Total Bilirubin 0.6
AST 24
ALT 23
Alkaline Phosphatase 76
Vital Signs:
Vital Signs
Temp Pulse Resp BP Pulse Ox
97.4 F 94 29 134/78 93
05/07/24 07:25 05/07/24 08:00 05/07/24 08:00 05/07/24 08:00 05/07/24 08:00
I&O
05/06/24 05/07/24 05/08/24
06:59 06:59 06:59
Intake Total 480 / 480 1030 / 1030
Output Total 950 / 950 1200 / 1200
Balance -470 / -470 -170 / -170
Review of Systems
-
History Source: Patient
All other systems: Reviewed and negative
Physical Exam
-
General: No Apparent Distress
HEENT: Moist Mucous Membranes
Respiratory: Clear to Auscultation
GI: Soft, Nontender and Nondistended
Neuro: Awake, Alert, Oriented and AO x 3
Psych: Calm
--- NOTE | 2024-05-07 12:12 | W.PN.PUL3 ---
Today's Communication / Plan
-
Clinically worsened, now on HFNC --not on max settings yet
Continue IV steroids
ProBNP and procal negative, can likely stop abx. Repeat sputum culture as able
Continue nebs QID, add IS
Confirmed DNR status and we discussed prolongation on vent
Watchful waiting
Assessment
-
Patient is a 78-year-old male with previous history of ILD, COPD, hyperlipidemia presenting to ER for shortness of breath that has been ongoing for the past few days. He reportedly had oxygen desaturation at home into the 80s. He has also
comorbid mild coughing, productive mucus, abdominal discomfort, bloating. In ER, he was hypoxemic, now placed on 10L MF. CT showing worsening groundglass opacities and ILD findings compared to prior. He does feel his functional capacity has
declined. We are consulted for eval.
Acute hypoxic respiratory failure on 10L MF
Acute on chronic SOB
Suspect progression of pulmonary fibrosis
Abnormal CT, increased GGOs
Lactic acidosis
Hyponatremia, mild
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
CT Chest 03/24/22 revealed mild-moderate centrilobular and paraseptal emphysematous changes; also with fibrosis/traction bronchiectasis/honeycombing
DLCO is moderately impaired at 45%. Last 6MWT showing wesley at 88% with quick recovery, not needing O2
COPD/emphysema, follows Dr Martinez
PFT obtained showing no obstruction and improved from prior.
Spiriva taken daily, continue albuterol inhaler as needed.
Mediastinal LAD: unknown chronicity and etiology, could be associated with ILD
AAA repair 1999 [facility]
Former smoker: 2 ppd for 40 y, quit Jul 1999
Chronic lumbar pain, on oxycodone
HLD
Reported ulcerative colitis
Constipation
Insomnia, on zolpidem
COVID vaccinated x2, boosted x2 (last 8 m SURVEILLANCE TECHNICIAN)
Fracture proximal phalanx of lesser toe (L) Mar 2021
Plan:
O2 protocol, maintained on 10L --now on HFNC at 80%
Keep POx 90-92%
Home O2 evaluation PTD (not on home O2)-- we discussed that this may be a new need for him
SOB-progressive
CT chest reviewed with progressed findings, possible related to progression of ILD
But need to rule out infection/volume
proBNP 735
PCT neg
Placed on CAP coverage, can likely stop abx
Sputum cx ordered, first sample inadequate--repeat as able
ECHO pending
Continue systemic CSs, IV Solu-Medrol dose reduced--40 q8
High dose causing hyperglycemia
Keep current dose given worsening clinical condition
DNs qid and prn
Guaifenesin-Mucolytic to continue
Asp precs
Acapella valve
Doubt diffuse alveolar hemorrhage given chronically stable Hgb
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
PT/OT, OOB if able
Per patient:
NM ST 1 y ago, colonoscopy 3 m ago, prostate exam 1 y ago: all normal
Flu shot 2020
COVID vaccinated and boosted
Discussed in detail with Mr Richards, all questions answered to satisfaction
Reviewed OP records
Agree that patient would be high risk for prolongation on vent, we discussed this in detail today
Confirmed code status to be DNR
Diagnostic tests:
CXR PA/lat 03-26, c/w turner and former automatic CT films
CXR 09-04-13: c/w 10-28-11- No gross parenchymal abnormalities. Mild elevation of R diaphragm
CT chest 05/06/24- No evidence of pulmonary embolus. Severe bilateral groundglass densities as described above. Significantly progressed. Probable interstitial lung disease. Superimposed pneumonia cannot be excluded. Moderate mediastinal and mild
left hilar lymphadenopathy. Likely reactive. Stable. Moderate emphysematous disease. Progressed.
Chest CTA 03-24-22 IMPRESSION:
1. No evidence of pulmonary embolism.
2. Findings suggesting scattered areas of pneumonitis/pneumonia and probable pulmonary edema/hemorrhage.
3. Underlying chronic interstitial changes.
TTE: pending
PFTs: as above
Reports and relevant images were personally reviewed.
Total time spent on this encounter __51__ minutes which includes review of history, physical exam, medications, laboratory data, personal review of imaging, extensive review of outpatient records, discussion with care team and respiratory therapy.
Subjective Data
-
Date of Service:
Date of Service: May 07, 2024
Chief Complaint: Pulmonary Follow Up
Subjective:
Worsened overnight, now on HFNC but on 80%
He feels the same, no worse
SOB with minimal activity
Objective Data
Data Reviewed
Vital Signs / I&O / Oxygen:
Vital Signs
Temp Pulse Resp BP Pulse Ox
97.7 F 101 20 130/71 92
05/07/24 11:40 05/07/24 11:00 05/07/24 11:00 05/07/24 10:00 05/07/24 11:00
Intake and Output
05/06/24 05/07/24 05/08/24
06:59 06:59 06:59
Intake Total 480 / 480 1030 / 1030
Output Total 950 / 950 1200 / 1200
Balance -470 / -470 -170 / -170
SaO2 92
Nasal Cannula flow liters per 60
minute
Physical Exam
General: Comfortable and Other (NAD)
HEENT: Normocephalic, Anicteric and Moist Mucous Membranes
Cardiovascular: S1-S2 and Regular Rhythm
Respiratory: Crackles and Non-Labored Respirations
GI: Soft, Non Distended and Non Tender
Neurology: Awake, Alert, Oriented and No Motor Deficits
Skin: Warm, Dry and Good Color
Labs/Micro/Reports
Lab Data
05/07/24 06:40
05/07/24 06:40
Microbiology
05/05/24 13:36 Blood/Venous Blood Culture - Preliminary
No Growth in 24 hours- Final report to follow
05/05/24 13:36 Blood/Venous Blood Culture - Preliminary
No Growth in 24 hours- Final report to follow
05/05/24 22:04 Sputum Respiratory Culture - Final
05/05/24 22:04 Sputum Gram Stain - Final
05/05/24 20:05 Urine Legionella Urinary Antigen - Final
Negative for Legionella pneumophila Serogroup 1 antigen.
A negative result does not rule out the possiblity of
Legionella infection due to other serogroups or species of
Legionella. Clinical correlation is recommended.
05/05/24 20:05 Urine Streptococcus pneumoniae Antigen (M - Final
Negative for Streptococcus pneumoniae antigen.
A negative result does not exclude infection with
Streptococcus pneumoniae. Clinical correlation is
recommended.
05/05/24 13:36 Nasal Swab Influenza Types A & B (AMAIRANI) - Final
Negative for Influenza A & B, NAAT
Negative results must be combined with clinical observations
and patient history.
Nucleic Acid Amplification test (NAAT)performed on the
[employer] platform.
[2024-05-07] MEDS: ROXICODONE 10 MG PO ×2 (14:47→19:28)
[2024-05-07] MEDS: ZITHROMAX INFUSION 250 IV (14:48)
[2024-05-07] MEDS: STERILE WATER FOR INJECTION 10 ML IV (14:48)
[2024-05-07] MEDS: ROCEPHIN 1000 MG IV (14:49)
[2024-05-07] MEDS: TYLENOL 325 MG PO (19:27)
[2024-05-07] MEDS: CRESTOR 20 MG PO (22:29)
[2024-05-07] MEDS: PEPCID 10 MG PO (22:29)
[2024-05-07] MEDS: AMBIEN 10 MG PO (22:29)
[2024-05-07] MEDS: EFFEXOR XR 37.5 MG PO (22:29)
[2024-05-07] MEDS: PROTONIX 40 MG PO (22:29)
[2024-05-07] MEDS: FLOMAX 0.4 MG PO (22:29)
[2024-05-08] VITALS (12 sets, daily range): BP systolic 106–128; BP diastolic 57–79; BMI 27.2
[2024-05-08] MEDS: MORPHINE SULFATE 1 MG IV ×3 (00:19→19:41)
[2024-05-08] MEDS: SOLU-MEDROL PF 40 MG IV ×3 (02:09→19:29)
--- NOTE | 2024-05-08 03:43 | PTCARENOTE ---
Pt maintained on high flow with an increase to 60L/100% overnight due to low SpO2 and increased work of breathing; Pt continues to become tachypneic and desaturate into the 70's with exertion. Recovers with rest. Morphine 1mg IV given for
SOB/Wheezing with positive effect on rate and labor. Will continue to monitor and assess.
[2024-05-08 06:06] LABS: Haptoglobin 326 mg/dL (30-200)
[2024-05-08 06:41] LABS: % Immature Granulocytes 0.9 % (0-0.5); % Lymphocytes 2.8 % (20.5-51.1); % Monocytes 4.5 % (1.7-9.3); % Neutrophils 91.8 % (42.2-75.2); Absolute Immature Granulocytes 0.1 10^3/uL (0-0.05); Absolute Lymphocytes 0.3 10^3/uL (1.2-3.4); Absolute Monocytes 0.5 10^3/uL (0.1-0.6); Absolute Neutrophils 9.1 10^3/uL (1.4-6.5); Hematocrit 29.8 % (39.0-52.0); Hemoglobin 10.1 g/dL (13.0-18.0); Mean Corp Hgb Conc. 33.9 g/dL (33.0-37.0); Mean Corpuscular Hgb 31.1 pg (27.0-31.0); Mean Corpuscular Volume 91.7 fL (80.0-94.0); Nucleated Red Blood Cells % 0 % (-); Platelet Count 231 10^3/uL (130-400); Red Blood Cell Count 3.25 10^6/uL (4.70-6.10); Red Cell Dist. Width 15.4 % (11.5-14.5); White Blood Cell Count 9.9 10^3/uL (4.8-10.8)
[2024-05-08 07:08] LABS: ALT (SGPT) 72 U/L (0-50); AST (SGOT) 63 U/L (17-59); Albumin 3.3 g/dl (3.5-5.0); Alkaline Phosphatase 86 U/L (38-126); Blood Urea Nitrogen 20 mg/dl (9-20); Carbon Dioxide 24 mmol/L (22-30); Chloride 102 mmol/L (98-107); Estimated Creatinine Clearance 95 ml/min; Glucose 145 mg/dl (70-99); Potassium 4.2 mmol/L (3.5-5.1); Sodium 134 mmol/L (135-145); Total Bilirubin 0.5 mg/dl (0.2-1.3); Total Protein 5.9 g/dl (6.3-8.2); eGFR > 60.00
[2024-05-08] MEDS: ADVAIR HFA 230/21 MCG INHALER 2 PUFF INH ×2 (07:44→19:35)
[2024-05-08] MEDS: DUONEB 3 ML INH ×4 (07:44→19:35)
[2024-05-08] MEDS: CYANOCOBALAMIN 1000 MCG IM (08:03)
--- NOTE | 2024-05-08 09:58 | W.PN.PUL.V3 ---
Today's Communication / Plan
-
Antibiotics-finite course
Wean FiO2
No change in methylprednisolone
Assessment
-
Patient is a 78-year-old male with previous history of ILD, COPD, hyperlipidemia presenting to ER for shortness of breath that has been ongoing for the past few days. He reportedly had oxygen desaturation at home into the 80s. He has also
comorbid mild coughing, productive mucus, abdominal discomfort, bloating. In ER, he was hypoxemic, now placed on 10L MF. CT showing worsening groundglass opacities and ILD findings compared to prior. He does feel his functional capacity has
declined. We are consulted for eval.
Acute hypoxic respiratory failure on 10L MF
Acute on chronic SOB
Suspect progression of pulmonary fibrosis
Abnormal CT, increased GGOs
Lactic acidosis
Hyponatremia, mild
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
CT Chest 03/24/22 revealed mild-moderate centrilobular and paraseptal emphysematous changes; also with fibrosis/traction bronchiectasis/honeycombing
DLCO is moderately impaired at 45%. Last 6MWT showing wesley at 88% with quick recovery, not needing O2
COPD/emphysema, follows Dr Martinez
PFT obtained showing no obstruction and improved from prior.
Spiriva taken daily, continue albuterol inhaler as needed.
Mediastinal LAD: unknown chronicity and etiology, could be associated with ILD
AAA repair 1999 HUP
Former smoker: 2 ppd for 40 y, quit Jul 1999
Chronic lumbar pain, on oxycodone
HLD
Reported ulcerative colitis
Constipation
Insomnia, on zolpidem
COVID vaccinated x2, boosted x2 (last 8 m SUPPLY CATALOGUER)
Fracture proximal phalanx of lesser toe (L) Mar 2021
Plan:
Respiratory status still tenuous
Continue supplemental oxygen-currently on high flow, attempt to wean
Eventual home oxygen evaluation-not on home oxygen
Aspiration precautions
Nebulizers if needed-currently not bronchospastic
Mucolytic's
Acapella
Methylprednisolone 40 mg IV every 8 hours continues-no change
CT chest reviewed with progressed findings, possible related to progression of ILD
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
But need to rule out infection/volume
proBNP 735
PCT neg
Placed on CAP coverage-Finite course
Sputum culture pending
Echocardiogram pending
Monitor blood sugars
Insulin supplementation as needed
Doubt diffuse alveolar hemorrhage given chronically stable Hgb
Per patient:
NM ST 1 y ago, colonoscopy 3 m ago, prostate exam 1 y ago: all normal
Flu shot 2020
COVID vaccinated and boosted
Discussed in detail with Mr Richards, all questions answered to satisfaction
Reviewed OP records
Agree that patient would be high risk for prolongation on vent, we discussed this in detail today
Confirmed code status to be DNR
Diagnostic tests:
CXR PA/lat 03-26, c/w tip printer CT films
CXR 09-04-13: c/w 10-28-11- No gross parenchymal abnormalities. Mild elevation of R diaphragm
CT chest 05/06/24- No evidence of pulmonary embolus. Severe bilateral groundglass densities as described above. Significantly progressed. Probable interstitial lung disease. Superimposed pneumonia cannot be excluded. Moderate mediastinal and mild
left hilar lymphadenopathy. Likely reactive. Stable. Moderate emphysematous disease. Progressed.
Chest CTA 03-24-22 IMPRESSION:
1. No evidence of pulmonary embolism.
2. Findings suggesting scattered areas of pneumonitis/pneumonia and probable pulmonary edema/hemorrhage.
3. Underlying chronic interstitial changes.
TTE: pending
PFTs: as above
Reports and relevant images were personally reviewed.
Subjective Data
-
Date of Service:
Date of Service: May 08, 2024
Chief Complaint: Pulmonary Follow Up and Dyspnea Follow Up
Subjective:
Feels about the same, still significant shortness of breath with minimal exertion, no increased shortness of breath at rest, no chest pain, productive cough or abdominal pain
Review of Systems
General: Other (Per HPI)
Objective Data
Data Reviewed
Vital Signs / I&O:
Vital Signs
Temp Pulse Resp BP Pulse Ox
97.9 F 80 30 108/61 96
05/08/24 07:50 05/08/24 07:51 05/08/24 07:51 05/08/24 06:00 05/08/24 07:51
Intake and Output
05/07/24 05/08/24 05/09/24
06:59 06:59 06:59
Intake Total 1030 / 1030
Output Total 1200 / 1200 1050 / 1050
Balance -170 / -170 -1050 / -1050
SaO2: 96
Nasal Cannula flow liters per minute: 60
Physical Exam
General: Respiratory Distress (n), Comfortable and Other (NAD)
HEENT: Normocephalic, Anicteric and Moist Mucous Membranes
Cardiovascular: Regular Rhythm
Respiratory: Crackles and Non-Labored Respirations
GI: Soft, Non Distended and Non Tender
Neurology: Awake, Alert, Oriented and No Motor Deficits
Skin: Warm, Good Color, Cyanosis (n) and Jaundice (n)
Labs/Micro/Reports
Lab Data
05/08/24 06:14
05/08/24 06:14
Microbiology
05/05/24 13:36 Blood/Venous Blood Culture - Preliminary
No Growth in 48 hours- Final report to follow
05/05/24 13:36 Blood/Venous Blood Culture - Preliminary
No Growth in 48 hours- Final report to follow
05/05/24 22:04 Sputum Respiratory Culture - Final
05/05/24 22:04 Sputum Gram Stain - Final
05/05/24 20:05 Urine Legionella Urinary Antigen - Final
Negative for Legionella pneumophila Serogroup 1 antigen.
A negative result does not rule out the possiblity of
Legionella infection due to other serogroups or species of
Legionella. Clinical correlation is recommended.
05/05/24 20:05 Urine Streptococcus pneumoniae Antigen (M - Final
Negative for Streptococcus pneumoniae antigen.
A negative result does not exclude infection with
Streptococcus pneumoniae. Clinical correlation is
recommended.
05/05/24 13:36 Nasal Swab Influenza Types A & B (AMAIRANI) - Final
Negative for Influenza A & B, NAAT
Negative results must be combined with clinical observations
and patient history.
Nucleic Acid Amplification test (NAAT)performed on the
[employer] platform.
[2024-05-08] MEDS: ZITHROMAX INFUSION 250 IV (15:07)
[2024-05-08] MEDS: ROCEPHIN 1000 MG IV (15:10)
[2024-05-08] MEDS: STERILE WATER FOR INJECTION 10 ML IV (15:11)
--- NOTE | 2024-05-08 15:36 | W.PN.HOSP.TC ---
Today's Communication/Plan
-
wean off o2; goal O2 sa >88%
Cont steroids, abx
Trial 20mg IV lasix
Assessment / Plan
Assessment / Plan
78yo M with PMHx of ILD, GERD, insomnia, HLD, AAA s/p repair in 2000 and 6mo ago, BPH came with SOB became apparent 1 week before admission, admitted for ILD flare with pneumonia. Patient noticed dark-colored sputum since the onset of dyspnea, with
concern for hemoptysis on admission.
Also few months of non-specific abdominal discomfort
A/P:
#Acute hypoxic respiratory failure on 10L midline upon discharge 2/2 ILD flare and possible pneumonia with unspecified organism
#Concern for ABPA vs hemoptysis
COVID-19 and influenza PCR neg
check sputum Cx
legionella and S.pneumonia urinary AG pending
Bcx NTD
Ceftriaxone/Azithromycin - reasonable to cont even with neg Procalcitonin, plan 5 days
Wean off O2 if possible
Bronchodilators
Taper steroids
Pulm consult
CT chest: No PE, Severe bilateral groundglass densities as described above. Significantly progressed. Probable interstitial lung disease. Superimposed pneumonia cannot be excluded
avoid antiplatelets and anticoagulation with reported hemoptysis
ProBNP elevated to 735 (previous 278 in 2021) -echo�mild concentric left ventricular hypertrophy, stage II diastolic dysfunction
EF 55 to 60%
-trial 20mg IV lasix today
#AAA s/p repair
with chronic abd discomfort
CT abd with 5.6cm AAA and iliac stent
Vascular consult: known postOP discomfort without concerning findings on CT
#Anemia of chronic disease
#B12 deficiency
#Iron deficiency
cyanocobalamin IM
High retics and mildly elevated LDH - check GIOVANNA
-oral ferrous sulfate on dc
#Hyponatremia
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
� Continue to monitor
#bilirubinemia on admission
minimal
Resolved
#HLD
#Chronic pain
#GERD
#anxiety d/o
#Insomnia
#BPH with PMHX of prostate CA
#Opioid-induced constipation, chronic
cont home meds
#Irregular HR
mostly sinus on tele
cont tele
EKG
DVT ppx HSQ
FUll code
I have spent at least 55min reviewing the chart, test results, communication with consultants and direct patient care
Anticipated Discharge: > 48 hours
Subjective/Interval History
-
Date of Service: May 08, 2024
No acute events
Objective Data
-
Labs:
Laboratory Results
05/08/24
06:14
WBC 9.9
Hgb 10.1 L
Hct 29.8 L
Plt Count 231
Sodium 134 L
Potassium 4.2
Chloride 102
Carbon Dioxide 24
BUN 20
Creatinine 0.5 L
Glucose 145 H
Calcium 9.0
Total Bilirubin 0.5
AST 63 H
ALT 72 H
Alkaline Phosphatase 86
Vital Signs:
Vital Signs
Temp Pulse Resp BP Pulse Ox
97.5 F 95 23 108/61 92
05/08/24 11:50 05/08/24 15:18 05/08/24 15:18 05/08/24 06:00 05/08/24 15:18
I&O
05/07/24 05/08/24 05/09/24
06:59 06:59 06:59
Intake Total 1030 / 1030
Output Total 1200 / 1200 1050 / 1050 525 / 525
Balance -170 / -170 -1050 / -1050 -525 / -525
Review of Systems
-
History Source: Patient
All other systems: Not reviewed unless documented
Physical Exam
-
General: No Apparent Distress
HEENT: Moist Mucous Membranes
Respiratory: Clear to Auscultation
GI: Soft, Nontender and Nondistended
Neuro: Awake, Alert, Oriented and AO x 3
Psych: Calm
Data Reviewed
-
CT Scan: Image personally visualized and interpreted and Report Reviewed by me
Labs: Labs Reviewed by me
[2024-05-08 15:41] LABS: Hepatitis C Antibody Negative (Negative)
[2024-05-08] MEDS: LASIX 20 MG IV (16:07)
--- NOTE | 2024-05-08 17:28 | CM ---
Patient receiving high flow O2, IV Abx, IV Solumedrol, IV MS prn.
CM continuing to follow for d/c needs.
Plan follow patient's O2 needs, mobility.
Plan TBD.
[2024-05-08] MEDS: HEPARIN 5000 UNITS SC (19:29)
[2024-05-08 20:13] LABS: Blood Urea Nitrogen 21 mg/dl (9-20); Calcium 9.1 mg/dl (8.4-10.2); Carbon Dioxide 24 mmol/L (22-30); Chloride 100 mmol/L (98-107); Estimated Creatinine Clearance 95 ml/min; Glucose 157 mg/dl (70-99); Magnesium 2.1 mg/dl (1.6-2.3); Potassium 3.9 mmol/L (3.5-5.1); Sodium 136 mmol/L (135-145); eGFR > 60.00
[2024-05-08] MEDS: PROTONIX 40 MG PO (21:59)
[2024-05-08] MEDS: FLOMAX 0.4 MG PO (21:59)
[2024-05-08] MEDS: CRESTOR 20 MG PO (21:59)
[2024-05-08] MEDS: AMBIEN 10 MG PO (21:59)
[2024-05-08] MEDS: PEPCID 10 MG PO (21:59)
[2024-05-08] MEDS: EFFEXOR XR 37.5 MG PO (21:59)
[2024-05-09] VITALS (12 sets, daily range): BP systolic 115–149; BP diastolic 61–111; BMI 26.7
[2024-05-09] MEDS: SOLU-MEDROL PF 40 MG IV ×3 (02:13→17:27)
--- NOTE | 2024-05-09 02:47 | PTCARENOTE ---
Caring for pt 11p-7a. aaox3, pleasant. remains on HFNC 55L 70%, very GANDARA. Desats to 80's with any movement in bed but recovers. NSR PAC. VSS. Will monitor.
[2024-05-09] MEDS: DUONEB 3 ML INH (07:22)
[2024-05-09] MEDS: ADVAIR HFA 230/21 MCG INHALER 2 PUFF INH ×2 (07:22→19:27)
--- NOTE | 2024-05-09 07:31 | RESPNOTE ---
Respiratory: Patient SpO2 was 80% on 60L and 60%. Increased to 60L 95% and 6L with neb. Pulse ox increased to 90%. All with good pleth on pulse ox monitor.
[2024-05-09] MEDS: CYANOCOBALAMIN 1000 MCG IM (09:14)
[2024-05-09] MEDS: HEPARIN 5000 UNITS SC ×2 (09:16→20:36)
--- NOTE | 2024-05-09 10:13 | W.PN.PUL.V3 ---
Today's Communication / Plan
-
Gentle diuresis
Wean FiO2
Steroids
Antibiotics
Comfort a priority-discussed palliative care and mentioned hospice-did not discuss in great detail
Assessment
-
Patient is a 78-year-old male with previous history of ILD, COPD, hyperlipidemia presenting to ER for shortness of breath that has been ongoing for the past few days. He reportedly had oxygen desaturation at home into the 80s. He has also
comorbid mild coughing, productive mucus, abdominal discomfort, bloating. In ER, he was hypoxemic, now placed on 10L MF. CT showing worsening groundglass opacities and ILD findings compared to prior. He does feel his functional capacity has
declined. We are consulted for eval.
Acute hypoxic respiratory failure on 10L MF
Acute on chronic SOB
Suspect progression of pulmonary fibrosis
Hemoptysis
Abnormal CT, increased GGOs
Lactic acidosis
Hyponatremia, mild
Conditions SECOND OFFICER:
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
CT Chest 03/24/22 revealed mild-moderate centrilobular and paraseptal emphysematous changes; also with fibrosis/traction bronchiectasis/honeycombing
DLCO is moderately impaired at 45%. Last 6MWT showing wesley at 88% with quick recovery, not needing O2
COPD/emphysema, follows Dr Martinez
PFT obtained showing no obstruction and improved from prior.
Spiriva taken daily, continue albuterol inhaler as needed.
Mediastinal LAD: unknown chronicity and etiology, could be associated with ILD
AAA repair 1999 [facility]UP
Moderate mitral stenosis
Moderate mitral regurgitation
Moderate aortic stenosis
Former smoker: 2 ppd for 40 y, quit Jul 1999
Chronic lumbar pain, on oxycodone
HLD
Reported ulcerative colitis
Constipation
Insomnia, on zolpidem
COVID vaccinated x2, boosted x2 (last 8 m SECOND OFFICER)
Fracture proximal phalanx of lesser toe (L) Mar 2021
Plan:
Respiratory status still very tenuous, declining with increased FiO2 requirements
Continue supplemental oxygen-currently on high flow, attempt to wean-reviewed with CONSUMER SALES REPRESENTATIVE-will try nonrebreather possibly in addition to high flow
Eventual home oxygen evaluation-not on home oxygen
Aspiration precautions
Nebulizers if needed-currently not bronchospastic
Mucolytic's
Acapella
Methylprednisolone 40 mg IV every 8 hours continues-no change
CT chest reviewed with progressed findings, possible related to progression of ILD
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
But need to rule out infection/volume
proBNP 735
PCT neg
Placed on CAP coverage-Finite course of 5 days
Sputum culture-poor specimen
Quantify hemoptysis
Echocardiogram 05/08/2024-EF 55-60%, stage II diastolic dysfunction, moderate mitral stenosis, moderate mitral regurgitation, moderate aortic stenosis PA systolic 50-55
Consider cardiology evaluation with significant valvular disease and hemoptysis
Monitor blood sugars
Insulin supplementation as needed
Doubt diffuse alveolar hemorrhage given chronically stable Hgb
Per patient:
NM ST 1 y ago, colonoscopy 3 m ago, prostate exam 1 y ago: all normal
Flu shot 2020
COVID vaccinated and boosted
Confirmed code status to be DNR
Diagnostic tests:
CXR PA/lat -, c/w research tech CT films
CXR 09-04-13: c/w 10-28-11- No gross parenchymal abnormalities. Mild elevation of R diaphragm
CT chest 05/06/24- No evidence of pulmonary embolus. Severe bilateral groundglass densities as described above. Significantly progressed. Probable interstitial lung disease. Superimposed pneumonia cannot be excluded. Moderate mediastinal and mild
left hilar lymphadenopathy. Likely reactive. Stable. Moderate emphysematous disease. Progressed.
Chest CTA 03-24-22 IMPRESSION:
1. No evidence of pulmonary embolism.
2. Findings suggesting scattered areas of pneumonitis/pneumonia and probable pulmonary edema/hemorrhage.
3. Underlying chronic interstitial changes.
Reports and relevant images were personally reviewed.
Subjective Data
-
Date of Service:
Date of Service: May 09, 2024
Chief Complaint: Pulmonary Follow Up and Dyspnea Follow Up
Subjective:
Increased FiO2 requirements, nonproductive cough, no chest pain, abdominal pain
Review of Systems
General: Other (Per HPI)
Objective Data
Data Reviewed
Vital Signs / I&O:
Vital Signs
Temp Pulse Resp BP Pulse Ox
97 F 86 22 149/94 90
05/09/24 07:50 05/09/24 07:23 05/09/24 07:23 05/09/24 06:00 05/09/24 07:28
Intake and Output
05/08/24 05/09/24 05/10/24
06:59 06:59 06:59
Output Total 1050 / 1050 2100 / 2100 75 / 75
Balance -1050 / -1050 -2100 / -2100 -75 / -75
SaO2: 90
Nasal Cannula flow liters per minute: 60
Physical Exam
General: Respiratory Distress (n), Comfortable and Other (NAD)
HEENT: Normocephalic, Anicteric and Moist Mucous Membranes
Cardiovascular: Regular Rhythm
Respiratory: Crackles and Non-Labored Respirations
GI: Soft, Non Distended and Non Tender
Neurology: Awake, Alert, Oriented and No Motor Deficits
Skin: Warm, Good Color, Cyanosis (n) and Jaundice (n)
Labs/Micro/Reports
Lab Data
05/08/24 06:14
05/08/24 19:45
Microbiology
05/05/24 13:36 Blood/Venous Blood Culture - Preliminary
No Growth in 72 hours- Final report to follow
05/05/24 13:36 Blood/Venous Blood Culture - Preliminary
No Growth in 72 hours- Final report to follow
05/05/24 22:04 Sputum Respiratory Culture - Final
05/05/24 22:04 Sputum Gram Stain - Final
05/05/24 20:05 Urine Legionella Urinary Antigen - Final
Negative for Legionella pneumophila Serogroup 1 antigen.
A negative result does not rule out the possiblity of
Legionella infection due to other serogroups or species of
Legionella. Clinical correlation is recommended.
05/05/24 20:05 Urine Streptococcus pneumoniae Antigen (M - Final
Negative for Streptococcus pneumoniae antigen.
A negative result does not exclude infection with
Streptococcus pneumoniae. Clinical correlation is
recommended.
[2024-05-09] MEDS: ROXICODONE 10 MG PO (11:16)
[2024-05-09] MEDS: TYLENOL 325 MG PO (11:17)
[2024-05-09] MEDS: ZITHROMAX 500 MG PO (11:18)
--- NOTE | 2024-05-09 13:23 | PTCARENOTE ---
Recd pt this AM. remains on HFNC, max at this time with NRB mask for rescue. Pt continues to desaturate with any movement. MD updated. Pt emotional over current state of his health and prognosis. RN provided support.
[2024-05-09] MEDS: STERILE WATER FOR INJECTION 10 ML IV (14:11)
[2024-05-09] MEDS: ROCEPHIN 1000 MG IV (14:12)
--- NOTE | 2024-05-09 15:34 | W.PN.HOSP.TC ---
Today's Communication/Plan
-
iv steroids
gentle diuresis - 20mg iv lasix daily
cards consulted
abx can be continued
wean o2; goal o2 >88%
Assessment / Plan
Assessment / Plan
78yo M with PMHx of ILD, GERD, insomnia, HLD, AAA s/p repair in 2000 and 6mo ago, BPH came with SOB became apparent 1 week before admission, admitted for ILD flare with pneumonia. Patient noticed dark-colored sputum since the onset of dyspnea, with
concern for hemoptysis on admission.
Also few months of non-specific abdominal discomfort
A/P:
#Acute hypoxic respiratory failure
2/2 ILD flare and possible Viral pneumonia
COVID-19 and influenza PCR neg
check sputum Cx - neg
legionella and S.pneumonia urinary AG pending
Bcx NTD
Ceftriaxone/Azithromycin - reasonable to cont even with neg Procalcitonin, plan 5 days
Wean off O2 if possible
Bronchodilators
IV steroids
Pulm consult
CT chest: No PE, Severe bilateral groundglass densities as described above. Significantly progressed. Probable interstitial lung disease. Superimposed pneumonia cannot be excluded
avoid antiplatelets and anticoagulation with reported hemoptysis
ProBNP elevated to 735 (previous 278 in 2021) -echo�mild concentric left ventricular hypertrophy, stage II diastolic dysfunction
EF 55 to 60%
MS, MR and - moderate;
Start 20mg IV lasix daily for gentle diuresis
Cards consulted
#AAA s/p repair
with chronic abd discomfort
CT abd with 5.6cm AAA and iliac stent
Vascular consult: known postOP discomfort without concerning findings on CT
#Anemia of chronic disease
#B12 deficiency
#Iron deficiency
cyanocobalamin IM
High retics and mildly elevated LDH - check GIOVANNA
-oral ferrous sulfate on dc
#Hyponatremia
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
� Continue to monitor
#bilirubinemia on admission
minimal
Resolved
#HLD
#Chronic pain
#GERD
#anxiety d/o
#Insomnia
#BPH with PMHX of prostate CA
#Opioid-induced constipation, chronic
cont home meds
#Irregular HR
mostly sinus on tele
cont tele
EKG
DVT ppx HSQ
FUll code
GOC convo -
I have spent at least 60min reviewing the chart, test results, communication with consultants and direct patient care
Anticipated Discharge: > 48 hours
Subjective/Interval History
-
Date of Service: May 09, 2024
no acute events
Objective Data
-
Vital Signs:
Vital Signs
Temp Pulse Resp BP Pulse Ox
97 F 95 21 139/82 89
05/09/24 07:50 05/09/24 14:00 05/09/24 14:00 05/09/24 14:00 05/09/24 13:39
I&O
05/08/24 05/09/24 05/10/24
06:59 06:59 06:59
Output Total 1050 / 1050 2100 / 2100 75 / 75
Balance -1050 / -1050 -2100 / -2100 -75 / -75
Review of Systems
-
History Source: Patient
All other systems: Not reviewed unless documented
Data Reviewed
-
CT Scan: Image personally visualized and interpreted and Report Reviewed by me
Medical Tests (Nuc Med, Echo etc): Report Reviewed by me
Labs: Labs Reviewed by me
--- NOTE | 2024-05-09 15:50 | CON.CAR ---
Addendum entered and electronically signed by Carrillo Ramos MD 05/09/24 17:25:
I saw and examined the patient.
The POLE SETTER's note was reviewed and I agree with the note.
Comment: I am not convinced that acute HFpEF is adding to his respiratory insufficiency but he moderate multivalvular heart disease with evidence of diastolic dysfunction. We will see if a trial of loop diuresis improves his respiratory status. I
am not yet convinced he has HFpEF.
Original Note:
Consultation
Consultation Request
Date/Time Consultation Requested: 05/09/2024 15:40
Date/Time Consultation Performed: 05/09/2024 15:50
Requesting Provider: Dr. Arriola
Performing Provider: ISA Gallegos for Dr. Ramos
Reason for Consultation: Worsening hypoxia
Medical History
-
Chief Complaint: Shortness of breath
History of Present Illness:
Marcell Leal is a 78-year-old male (known to Dr. Conor Vicente at [facility], his primary photogeologist), with prostate cancer, dyslipidemia, AAA s/p open repair, right common iliac stent (2023), ILD, COPD, and pulmonary fibrosis who
presented to the emergency department 05/05/2024 with a chief complaint of shortness of breath. He reports hypoxemia at home. He endorsed associated productive cough and abdominal pain. Pulmonary was consulted and is following. He is on
intravenous steroids. His hypoxemia is worsening and cardiology was consulted.
Past Medical History
Past Medical History: Cancer (Prostate), COPD, Hypercholesterolemia and Other (ILD, AAA status post endovascular repair)
Past Surgical History: Other (Iliac artery stent)
Social History
Tobacco: Former Smoker
Drug: None
Living: With Family
Family History
Family History: Reviewed & Not Pertinent
Allergies / Home Medications
Allergy/AdvReac Type Severity Reaction Status Date / Time
fentanyl Allergy Intermediate Rash Verified 05/05/24 13:04
�Medication �Instructions �Recorded �Confirmed �Type
naloxegol 25 mg tablet (Movantik) 25 mg PO HS Gastrointestinal issue 03/24/22 05/05/24 History
rosuvastatin 20 mg tablet 20 mg PO HS High cholesterol 03/24/22 05/05/24 History
zolpidem 10 mg tablet (Ambien) 10 mg PO HS insomnia 03/24/22 05/05/24 History
albuterol sulfate 90 mcg/actuation 2 puff inhalation R Q6HPRN PRN 05/05/24 05/05/24 History
aerosol inhaler (Ventolin HFA) shortness of breath or wheezing
bisacodyl 5 mg tablet,delayed 5 mg PO DAILYPRN PRN constipation 05/05/24 05/05/24 History
release (Dulcolax (bisacodyl))
famotidine 10 mg tablet 10 mg PO HS Gastrointestinal Issue 05/05/24 05/05/24 History
oxycodone-acetaminophen 10 mg-325 1 tab PO Q4H pain 05/05/24 05/05/24 History
mg tablet
pantoprazole 40 mg tablet,delayed 40 mg PO HS Gastrointestinal Issue 05/05/24 05/05/24 History
release
tamsulosin 0.4 mg capsule 0.4 mg PO HS Urinary Issue 05/05/24 05/05/24 History
tiotropium bromide 2.5 2 inh inhalation R DAILY 05/05/24 05/05/24 History
mcg/actuation mist for inhalation Lung/Breathing Issues
(Spiriva Respimat)
venlafaxine 37.5 mg 37.5 mg PO HS Mental Health/Anxiety 05/05/24 05/05/24 History
capsule,extended release 24 hr
Review of Systems
-
History Source: Patient
All other systems: Negative unless noted
Constitutional: Fatigue
EENT: No Symptoms
Respiratory: Hemoptysis and Trouble Breathing
Cardiac: No Symptoms
Abdomen/GI: No Symptoms
: No Symptoms
Musculoskeletal: No Symptoms
Skin: No Symptoms
Neurological: No Symptoms
Endocrine: No Symptoms
Hematologic/Lymphatic: No Symptoms
Physical Exam
Vital Signs
Temp Pulse Resp BP Pulse Ox
97 F 95 21 139/82 89
05/09/24 07:50 05/09/24 14:00 05/09/24 14:00 05/09/24 14:00 05/09/24 13:39
Lab Results
05/08/24 06:14
05/08/24 19:45
Vyc-R-Vnnhqajvqwe Pept 735 pg/ml 05/05/24 20:13
Physical Exam
General: Well Developed, Well Nourished, No Apparent Distress and Comfortable
HEENT: Normocephalic, Anicteric and Moist Mucous Membranes
Respiratory: Clear and Non Labored Respirations
Cardiac: S1/S2 and Irregular Rhythm; Negative Peripheral Edema
Breast: Deferred by me
GI: Soft, Non Tender, Non Distended and Normal Bowel Sounds
Rectal: Deferred by Provider
Genito-urinary: No Costovertebral Tender
Musculoskeletal: No Clubbing, No Cyanosis and No Edema
Skin: Warm and Dry
Neuro: AO x 3
Hematologic/Lymphatic: No Lymphadenopathy
Psych: Calm
Impression / Plan
-
IMPRESSION/PLAN: 78M with prostate cancer, dyslipidemia, AAA s/p open repair, right common iliac stent (2023), ILD, COPD, and pulmonary fibrosis who presented to the emergency department 05/05/2024 with a chief complaint of shortness of breath.
Outpatient photogeologist: Dr. Conor Vicente ([facility]) - records requested
Acute hypoxemic respiratory failure
-With underlying ILD and COPD with suspected worsening pulmonary fibrosis
-CT with progressed GGO's
-Lactic acidosis on arrival, now normalized
-Will trial a dose of intravenous diuretic to see if hypoxia improves
-Weight down, I/O net negative
Hemoptysis, per pulmonary
AAA s/p open repair (1999)
-CT with 5.6 cm suprarenal abdominal aortic aneurysm
-Vascular surgery evaluated him and he would prefer to follow-up with his vascular surgeon
Mild to moderate mitral stenosis.
Mild to moderate mitral regurgitation.
Moderate aortic stenosis (, TOM 1.4)
Right common iliac artery stent (2023)
Dyslipidemia, continue rosuvastatin
Prostate cancer, on Lupron
Chronic back pain requiring opioids
DATA:
Transthoracic echocardiogram, 05/08/2024:
CONCLUSIONS
Normal biventricular size and systolic function without regional wall motion
abnormality.
Mild concentric left ventricular hypertrophy.
Stage II diastolic dysfunction suggestive of abnormal relaxation and increased
filling pressures.
Severe left atrial enlargement.
Mild to moderate mitral stenosis.
Mild to moderate mitral regurgitation.
Moderate aortic stenosis.
Moderate tricuspid regurgitation.
Estimated PASP 50-55 mmHg and estimated RA 3 mmHg.
No prior study available for comparison.
[2024-05-09 17:01] LABS: NT-proBNP 2490 pg/ml
[2024-05-09] MEDS: LASIX 20 MG IV (17:21)
[2024-05-09] MEDS: MORPHINE SULFATE 1 MG IV (17:26)
[2024-05-09] MEDS: CRESTOR 20 MG PO (20:36)
[2024-05-09] MEDS: PROTONIX 40 MG PO (20:36)
[2024-05-09] MEDS: EFFEXOR XR 37.5 MG PO (20:36)
[2024-05-09] MEDS: PEPCID 10 MG PO (20:36)
[2024-05-09] MEDS: FLOMAX 0.4 MG PO (20:36)
[2024-05-09] MEDS: AMBIEN 10 MG PO (21:55)
--- NOTE | 2024-05-09 23:58 | PTCARENOTE ---
Caring for pt overnight. aaox3, pleasant. 60L 100% HFNC. GANDARA and tachypneic whenever moving in bed. HFNC came out of nose when sleeping by accident and pt dropped to 78% but recovered within a minute. NSR PAC/SA on monitor, confirmed with ekg to r/o
afib. VSS. iv steroids. no complaints. Will monitor.
[2024-05-10] VITALS (11 sets, daily range): BP systolic 117–160; BP diastolic 64–97; BMI 26.2
[2024-05-10] MEDS: SOLU-MEDROL PF 40 MG IV ×3 (02:06→17:41)
[2024-05-10] MEDS: MORPHINE SULFATE 1 MG IV ×3 (05:27→21:50)
[2024-05-10 05:53] LABS: Hematocrit 31.4 % (39.0-52.0); Hemoglobin 10.7 g/dL (13.0-18.0); Mean Corp Hgb Conc. 34.1 g/dL (33.0-37.0); Mean Corpuscular Hgb 31.2 pg (27.0-31.0); Mean Corpuscular Volume 91.5 fL (80.0-94.0); Mean Platelet Volume 8.8 fL (7.4-10.4); Platelet Count 209 10^3/uL (130-400); Red Blood Cell Count 3.43 10^6/uL (4.70-6.10); Red Cell Dist. Width 15.4 % (11.5-14.5); White Blood Cell Count 10.7 10^3/uL (4.8-10.8)
[2024-05-10 06:15] LABS: ALT (SGPT) 57 U/L (0-50); AST (SGOT) 31 U/L (17-59); Albumin 3.4 g/dl (3.5-5.0); Alkaline Phosphatase 97 U/L (38-126); Blood Urea Nitrogen 26 mg/dl (9-20); Carbon Dioxide 25 mmol/L (22-30); Chloride 101 mmol/L (98-107); Estimated Creatinine Clearance 95 ml/min; Glucose 167 mg/dl (70-99); Potassium 3.8 mmol/L (3.5-5.1); Sodium 138 mmol/L (135-145); Total Bilirubin 0.7 mg/dl (0.2-1.3); eGFR > 60.00
[2024-05-10] MEDS: ADVAIR HFA 230/21 MCG INHALER 2 PUFF INH ×2 (07:19→19:39)
[2024-05-10] MEDS: DUONEB 3 ML INH (07:19)
--- NOTE | 2024-05-10 08:10 | RESPNOTE ---
Respiratory: @0730 patient c/o nasal dryness/burning. Placed patient on 100% Non-rebreather mask to give sinuses a break SpO2 90-91%.
--- NOTE | 2024-05-10 08:17 | W.PN.CD ---
Today's Communication / Plan
-
-Echocardiogram yesterday revealed normal LVEF, but moderate aortic stenosis, moderate tricuspid regurgitation, mild to moderate mitral stenosis, and mild to moderate mitral regurgitation were noted.
-Will transition to Lasix 20 mg PO daily, which patient should be discharged on.
-Patient can follow-up with his primary Audiologist as an outpatient Dr. Conor Vicente ([facility]) for continued management.
-No further cardiac recommendations at this time.
Impression / Plan
-
IMPRESSION/PLAN: 78M with prostate cancer, dyslipidemia, AAA s/p open repair, right common iliac stent (2023), ILD, COPD, and pulmonary fibrosis who presented to the emergency department 05/05/2024 with a chief complaint of shortness of breath.
Outpatient cnc maintenance mechanic: Dr. Conor Vicente ([facility]) - records requested
Acute hypoxemic respiratory failure
-With underlying ILD and COPD with suspected worsening pulmonary fibrosis
-CT with progressed GGO's
-Lactic acidosis on arrival, now normalized
-Will trial a dose of intravenous diuretic to see if hypoxia improves
-Weight down, I/O net negative
Acute on chronic HFpEF:
-Echocardiogram yesterday revealed normal LVEF, but moderate aortic stenosis, moderate tricuspid regurgitation, mild to moderate mitral stenosis, and mild to moderate mitral regurgitation were noted.
-Will transition to Lasix 20 mg PO daily, which patient should be discharged on.
-Patient can follow-up with his primary Audiologist as an outpatient Dr. Conor Vicente ([facility]) for continued management.
Hemoptysis - management as per Pulmonary.
AAA s/p open repair (1999)
-CT with 5.6 cm suprarenal abdominal aortic aneurysm
-Vascular surgery evaluated him and he would prefer to follow-up with his vascular surgeon
Right common iliac artery stent (2023)
Dyslipidemia, continue rosuvastatin
Prostate cancer, on Lupron
Chronic back pain requiring opioids
DATA:
Transthoracic echocardiogram, 05/08/2024:
CONCLUSIONS
Normal biventricular size and systolic function without regional wall motion
abnormality.
Mild concentric left ventricular hypertrophy.
Stage II diastolic dysfunction suggestive of abnormal relaxation and increased
filling pressures.
Severe left atrial enlargement.
Mild to moderate mitral stenosis.
Mild to moderate mitral regurgitation.
Moderate aortic stenosis.
Moderate tricuspid regurgitation.
Estimated PASP 50-55 mmHg and estimated RA 3 mmHg.
No prior study available for comparison.
Physical Exam
Vital Signs/Labs
Vital Signs
Temp Pulse Resp BP Pulse Ox
97.8 F 86 24 156/80 90
05/10/24 03:00 05/10/24 07:20 05/10/24 07:20 05/10/24 06:00 05/10/24 07:20
05/09/24 05/10/24 05/11/24
06:59 06:59 06:59
Actual Weight 77.3 kg 75.8 kg
05/10/24 05:34
05/10/24 05:34
Magnesium 2.1 mg/dl (1.6-2.3) 05/08/24 19:45
05/05/24 05/09/24
20:13 16:27
Xgk-A-Rgdrirrhjgn Pept 735 2490
Physical Exam
Constitutional: No acute distress and Comfortable
EENT: Anicteric
Cardiovascular: Rhythm & rate is regular, Pedal edema is absent, Systolic murmur present (/) and S1S2 is normal
Respiratory: Respiratory effort normal and Rhonchi Present
GI: Soft and Distention absent
Neuro/Psych: AO x 3
Other: Skin (Warm, dry, intact)
Data Reviewed
-
Date of Service: May 10, 2024
EKG: Report Reviewed by me (Telemetry: Sinus rhythm)
Echo: Report Reviewed by me (EF 60-65%, mild to moderate MR, mild to moderate MS, moderate , moderate TR)
Labs: Labs Reviewed by me
--- NOTE | 2024-05-10 08:32 | PTCARENOTE ---
Patient received from warehouse supervisor 3rd shift. Patient resting comfortably in bed. AAO, VSS. No events noted over night. Patient with some complaints of pain, instructed when next dose is due. Currently on HighFlow N/C 60L @ 100%, Respiratory Therapy to
place on NRB to give nose a pressure break. No test scheduled for today at this time. Call pulido in reach.
[2024-05-10] MEDS: ZITHROMAX 500 MG PO (08:33)
[2024-05-10] MEDS: HEPARIN 5000 UNITS SC ×2 (08:33→21:43)
[2024-05-10] MEDS: CYANOCOBALAMIN 1000 MCG IM (08:34)
[2024-05-10] MEDS: LASIX 20 MG IV (08:34)
--- NOTE | 2024-05-10 09:30 | PN.CDI ---
Addendum entered and electronically signed by Puneet Yung MD 05/18/24 07:21:
no sepsis
Original Note:
CDI
- -
CDI:
Physician Documentation Request
Admit Date: 05/05/24 15:48
Dear Doctor Flako,
Please review the following and provide your response in the progress notes.
Clinical Indicators:
Documentation in the ER includes the diagnosis of Sepsis. The following clinical information was noted in the record:
Pt admitted with Hypoxemic respiratory insufficiency secondary to superimposed pneumonia on worsening of ILD.
Selected Entries
05/05/24
13:00 05/05/24
14:05
Pulse 109 105
Resp Rate 29
05/05/24
18:23
Pulse 120
Resp Rate 28
Laboratory Tests
05/05/24
13:37
Lactic Acid 2.3 H
Please update the status of Sepsis documented in the ER:
Sepsis-resolved
Sepsis -still being monitored/treated
Sepsis ruled out
Other
Use of terms such as suspected, likely, concern for, or probable (associated with a specific diagnosis that is being evaluated, monitored, or treated as if it exists) are acceptable and can be coded in the inpatient setting, when documented at the
time of discharge.
Thank you,
Maryjo Mojica RN, BSN
CDI Specialist
Available via [place] [employer]
Please use your independent medical judgment in providing your response.
--- NOTE | 2024-05-10 10:28 | W.PN.PUL.V3 ---
Today's Communication / Plan
-
Gentle diuresis
Cardiology evaluation noted
Monitor hemoptysis
No change in steroids
Continue antibiotics
Prognosis unfortunately guarded-unfortunately had to tell patient he may not improve
Assessment
-
Patient is a 78-year-old male with previous history of ILD, COPD, hyperlipidemia presenting to ER for shortness of breath that has been ongoing for the past few days. He reportedly had oxygen desaturation at home into the 80s. He has also
comorbid mild coughing, productive mucus, abdominal discomfort, bloating. In ER, he was hypoxemic, now placed on 10L MF. CT showing worsening groundglass opacities and ILD findings compared to prior. He does feel his functional capacity has
declined. We are consulted for eval.
Acute hypoxic respiratory failure on 10L MF
Acute on chronic SOB
Suspect progression of pulmonary fibrosis
Hemoptysis
Abnormal CT, increased GGOs
Lactic acidosis
Hyponatremia, mild
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
CT Chest 03/24/22 revealed mild-moderate centrilobular and paraseptal emphysematous changes; also with fibrosis/traction bronchiectasis/honeycombing
DLCO is moderately impaired at 45%. Last 6MWT showing wesley at 88% with quick recovery, not needing O2
COPD/emphysema, follows Dr Martinez
PFT obtained showing no obstruction and improved from prior.
Spiriva taken daily, continue albuterol inhaler as needed.
Mediastinal LAD: unknown chronicity and etiology, could be associated with ILD
AAA repair 1999 [facility]
Moderate mitral stenosis
Moderate mitral regurgitation
Moderate aortic stenosis
Former smoker: 2 ppd for 40 y, quit Jul 1999
Chronic lumbar pain, on oxycodone
HLD
Reported ulcerative colitis
Constipation
Insomnia, on zolpidem
COVID vaccinated x2, boosted x2 (last 8 m ROOM ATTENDANT)
Fracture proximal phalanx of lesser toe (L) Mar 2021
Plan:
Respiratory status still very tenuous, declining with increased FiO2 requirements
Continue supplemental oxygen-currently on high flow, attempt to wean-reviewed with TRIAGE LICENSED PRACTICAL NURSE--continue to try nonrebreather possibly in addition to high flow
Eventual home oxygen evaluation-not on home oxygen
Aspiration precautions
Nebulizers if needed-currently not bronchospastic
Mucolytic's
Acapella
Methylprednisolone 40 mg IV every 8 hours continues-no change
CT chest reviewed with progressed findings, possible related to progression of ILD
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
But need to rule out infection/volume
proBNP 7[address] neg
Placed on CAP coverage-Finite course of 5 days
Sputum culture-poor specimen
Quantify hemoptysis
Follow radiographically
Echocardiogram 05/08/2024-EF 55-60%, stage II diastolic dysfunction, moderate mitral stenosis, moderate mitral regurgitation, moderate aortic stenosis PA systolic 50-55
Consider cardiology evaluation with significant valvular disease and hemoptysis
Monitor blood sugars
Insulin supplementation as needed
Doubt diffuse alveolar hemorrhage given chronically stable Hgb
Follow hemoglobin-currently stable at 10.7
Would not tolerate bronchoscopy at this point
Per patient:
NM ST 1 y ago, colonoscopy 3 m ago, prostate exam 1 y ago: all normal
Flu shot 2020
COVID vaccinated and boosted
Confirmed code status to be DNR
Diagnostic tests:
CXR PA/lat 03-26, c/w irrigator head CT films
CXR 09-04-13: c/w 10-28-11- No gross parenchymal abnormalities. Mild elevation of R diaphragm
CT chest 05/06/24- No evidence of pulmonary embolus. Severe bilateral groundglass densities as described above. Significantly progressed. Probable interstitial lung disease. Superimposed pneumonia cannot be excluded. Moderate mediastinal and mild
left hilar lymphadenopathy. Likely reactive. Stable. Moderate emphysematous disease. Progressed.
Chest CTA 03-24-22 IMPRESSION:
1. No evidence of pulmonary embolism.
2. Findings suggesting scattered areas of pneumonitis/pneumonia and probable pulmonary edema/hemorrhage.
3. Underlying chronic interstitial changes.
Reports and relevant images were personally reviewed.
Subjective Data
-
Date of Service:
Date of Service: May 10, 2024
Chief Complaint: Pulmonary Follow Up and Dyspnea Follow Up
Subjective:
No abdominal pain overall states that his hemoptysis is slightly improved, still on high FiO2, no complaints of chest pain,
Review of Systems
General: Other (Per HPI)
Objective Data
Data Reviewed
Vital Signs / I&O:
Vital Signs
Temp Pulse Resp BP Pulse Ox
96.7 F L 85 24 145/85 90
05/10/24 07:30 05/10/24 08:34 05/10/24 07:20 05/10/24 08:34 05/10/24 07:20
Intake and Output
05/09/24 05/10/24 05/11/24
06:59 06:59 06:59
Output Total 2099 / 2099 1550 / 1550
Balance -2100 / -2100 -1550 / -1550
SaO2: 90
Nasal Cannula flow liters per minute: 60
Physical Exam
General: Respiratory Distress (n), Comfortable and Other (NAD)
HEENT: Normocephalic, Anicteric and Moist Mucous Membranes
Cardiovascular: Regular Rhythm
Respiratory: Crackles and Non-Labored Respirations
GI: Soft, Non Distended and Non Tender
Neurology: Awake, Alert, Oriented and No Motor Deficits
Skin: Warm, Good Color, Cyanosis (n) and Jaundice (n)
Labs/Micro/Reports
Lab Data
05/10/24 05:34
05/10/24 05:34
Microbiology
05/05/24 13:36 Blood/Venous Blood Culture - Preliminary
No Growth in 4 days- Final report to follow
05/05/24 13:36 Blood/Venous Blood Culture - Preliminary
No Growth in 4 days- Final report to follow
[2024-05-10] MEDS: ROCEPHIN 1000 MG IV (15:06)
[2024-05-10] MEDS: STERILE WATER FOR INJECTION 10 ML IV (15:06)
[2024-05-10] MEDS: ROXICODONE 10 MG PO (15:12)
[2024-05-10] MEDS: TYLENOL 325 MG PO (15:14)
--- NOTE | 2024-05-10 15:30 | W.PN.HOSP.TC ---
Today's Communication/Plan
-
iv steroids
gentle diuresis
wean o2; goal o2 >88%
Assessment / Plan
Assessment / Plan
78yo M with PMHx of ILD, GERD, insomnia, HLD, AAA s/p repair in 2000 and 6mo ago, BPH came with SOB became apparent 1 week before admission, admitted for ILD flare with pneumonia. Patient noticed dark-colored sputum since the onset of dyspnea, with
concern for hemoptysis on admission.
Also few months of non-specific abdominal discomfort
A/P:
#Acute hypoxic respiratory failure
2/2 ILD flare and possible Viral pneumonia
COVID-19 and influenza PCR neg
check sputum Cx - neg
legionella and S.pneumonia urinary AG pending
Bcx NTD
Ceftriaxone/Azithromycin - reasonable to cont even with neg Procalcitonin,
Wean off O2 if possible
Bronchodilators
IV steroids
Pulm consult
CT chest: No PE, Severe bilateral groundglass densities as described above. Significantly progressed. Probable interstitial lung disease. Superimposed pneumonia cannot be excluded
avoid antiplatelets and anticoagulation with reported hemoptysis
ProBNP elevated to 735 (previous 278 in 2021) -echo�mild concentric left ventricular hypertrophy, stage II diastolic dysfunction
EF 55 to 60%
MS, MR and - moderate;
switch to PO lasix
#AAA s/p repair
with chronic abd discomfort
CT abd with 5.6cm AAA and iliac stent
Vascular consult: known postOP discomfort without concerning findings on CT
#Anemia of chronic disease
#B12 deficiency
#Iron deficiency
cyanocobalamin IM
High retics and mildly elevated LDH - check GIOVANNA
-oral ferrous sulfate on dc
#Hyponatremia
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
� Continue to monitor
#bilirubinemia on admission
minimal
Resolved
#HLD
#Chronic pain
#GERD
#anxiety d/o
#Insomnia
#BPH with PMHX of prostate CA
#Opioid-induced constipation, chronic
cont home meds
#Irregular HR
mostly sinus on tele
cont tele
EKG
DVT ppx HSQ
FUll code
GOC convo - prognosis guarded
I have spent at least 60min reviewing the chart, test results, communication with consultants and direct patient care
Anticipated Discharge: > 48 hours
Subjective/Interval History
-
Date of Service: May 10, 2024
no changes, minimal hemoptysis
Objective Data
-
Labs:
Laboratory Results
05/10/24
05:34
WBC 10.7
Hgb 10.7 L
Hct 31.4 L
Plt Count 209
Sodium 138
Potassium 3.8
Chloride 101
Carbon Dioxide 25
BUN 26 H
Creatinine 0.5 L
Glucose 167 H
Calcium 9.0
Total Bilirubin 0.7
AST 31
ALT 57 H
Alkaline Phosphatase 97
Vital Signs:
Vital Signs
Temp Pulse Resp BP Pulse Ox
97.6 F 85 24 145/85 90
05/10/24 11:30 05/10/24 08:34 05/10/24 07:20 05/10/24 08:34 05/10/24 10:28
I&O
05/09/24 05/10/24 05/11/24
06:59 06:59 06:59
Output Total 2099 1550 / 1550
Balance -2099 / -2099 -1550 / -1550
Review of Systems
-
History Source: Patient
All other systems: Not reviewed unless documented
Physical Exam
-
General: No Apparent Distress
HEENT: Moist Mucous Membranes
Respiratory: Clear to Auscultation
GI: Soft, Nontender and Nondistended
Neuro: Awake, Alert, Oriented and AO x 3
Psych: Calm
--- NOTE | 2024-05-10 17:10 | CM ---
Patient receiving high flow O2, IV & PO Abx, IV Solumedrol, IV MS prn.
CM continuing to follow for d/c needs.
Plan follow patient's O2 needs, mobility.
Plan TBD.
[2024-05-10] MEDS: FLOMAX 0.4 MG PO (21:43)
[2024-05-10] MEDS: AMBIEN 10 MG PO (21:43)
[2024-05-10] MEDS: EFFEXOR XR 37.5 MG PO (21:43)
[2024-05-10] MEDS: PROTONIX 40 MG PO (21:43)
[2024-05-10] MEDS: CRESTOR 20 MG PO (21:43)
[2024-05-10] MEDS: PEPCID 10 MG PO (21:43)
[2024-05-11] VITALS (12 sets, daily range): BP systolic 112–163; BP diastolic 58–98; BMI 25.9
--- NOTE | 2024-05-11 00:53 | PTCARENOTE ---
Pt awake and oriented. C/o SOB/dyspnea, relieved by one dose of PRN morphine. Assessment as documented. VSS. Maintained on HF oxygen at 96%. Call pulido within reach.
[2024-05-11] MEDS: SOLU-MEDROL PF 40 MG IV ×3 (01:19→17:35)
[2024-05-11 05:42] LABS: Hematocrit 35.1 % (39.0-52.0); Hemoglobin 11.6 g/dL (13.0-18.0); Mean Corpuscular Hgb 30.2 pg (27.0-31.0); Mean Corpuscular Volume 91.4 fL (80.0-94.0); Mean Platelet Volume 8.8 fL (7.4-10.4); Platelet Count 217 10^3/uL (130-400); Red Blood Cell Count 3.84 10^6/uL (4.70-6.10); Red Cell Dist. Width 15.2 % (11.5-14.5); White Blood Cell Count 11.2 10^3/uL (4.8-10.8)
--- NOTE | 2024-05-11 05:45 | PTCARENOTE ---
Pt with episodes of SOB/dyspnea with desat to 80s, recovered with NRB mask PRN.
[2024-05-11 06:02] LABS: ALT (SGPT) 55 U/L (0-50); AST (SGOT) 26 U/L (17-59); Albumin 3.5 g/dl (3.5-5.0); Alkaline Phosphatase 98 U/L (38-126); Blood Urea Nitrogen 25 mg/dl (9-20); Calcium 9.2 mg/dl (8.4-10.2); Carbon Dioxide 27 mmol/L (22-30); Chloride 100 mmol/L (98-107); Estimated Creatinine Clearance 95 ml/min; Glucose 140 mg/dl (70-99); Potassium 4.1 mmol/L (3.5-5.1); Sodium 136 mmol/L (135-145); Total Protein 6.1 g/dl (6.3-8.2); eGFR > 60.00
[2024-05-11] MEDS: ADVAIR HFA 230/21 MCG INHALER 2 PUFF INH ×2 (07:24→19:21)
[2024-05-11] MEDS: CYANOCOBALAMIN 1000 MCG IM (08:15)
[2024-05-11] MEDS: HEPARIN 5000 UNITS SC ×2 (08:17→21:28)
[2024-05-11] MEDS: LASIX 20 MG PO (08:18)
[2024-05-11] MEDS: ZITHROMAX 500 MG PO (08:19)
[2024-05-11] MEDS: MORPHINE SULFATE 1 MG IV ×2 (08:20→21:32)
--- NOTE | 2024-05-11 09:00 | PTCARENOTE ---
atient received from chinese medicine practitioner. Patient resting comfortably in bed. AAO, VSS. No events noted over night. Patient with some complaints of pain, instructed when next dose is due. Continues on HighFlow N/C 50L @ 100%, talked with Respiratory
Therapy to wean as tolerated. No test scheduled for today at this time. OOB to chair today. Call pulido in reach.
--- NOTE | 2024-05-11 09:20 | W.PN.PUL.V3 ---
Today's Communication / Plan
-
Wean oxygen
No change in steroids
Gentle diuresis
Monitor hemoptysis
Prognosis unfortunately extremely poor
Goals of care/comfort a priority/hospice consideration
Assessment
-
Patient is a 78-year-old male with previous history of ILD, COPD, hyperlipidemia presenting to ER for shortness of breath that has been ongoing for the past few days. He reportedly had oxygen desaturation at home into the 80s. He has also
comorbid mild coughing, productive mucus, abdominal discomfort, bloating. In ER, he was hypoxemic, now placed on 10L MF. CT showing worsening groundglass opacities and ILD findings compared to prior. He does feel his functional capacity has
declined. We are consulted for eval.
Acute hypoxic respiratory failure on 10L MF
Acute on chronic SOB
Suspect progression of pulmonary fibrosis
Hemoptysis
Abnormal CT, increased GGOs
Lactic acidosis
Hyponatremia, mild
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
CT Chest 03/24/22 revealed mild-moderate centrilobular and paraseptal emphysematous changes; also with fibrosis/traction bronchiectasis/honeycombing
DLCO is moderately impaired at 45%. Last 6MWT showing wesley at 88% with quick recovery, not needing O2
COPD/emphysema, follows Dr Martinez
PFT obtained showing no obstruction and improved from prior.
Spiriva taken daily, continue albuterol inhaler as needed.
Mediastinal LAD: unknown chronicity and etiology, could be associated with ILD
AAA repair 1999 HUP
Moderate mitral stenosis
Moderate mitral regurgitation
Moderate aortic stenosis
Former smoker: 2 ppd for 40 y, quit Jul 1999
Chronic lumbar pain, on oxycodone
HLD
Reported ulcerative colitis
Constipation
Insomnia, on zolpidem
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
Fracture proximal phalanx of lesser toe (L) Mar 2021
Plan:
Respiratory status continues to be extremely tenuous
Continue supplemental oxygen-currently on high flow, attempt to wean-reviewed with SERVER SYSTEMS ADMINISTRATOR--continue to try nonrebreather possibly in addition to high flow
Eventual home oxygen evaluation-not on home oxygen
Aspiration precautions
Nebulizers if needed-currently not bronchospastic
Mucolytic's
Acapella
Methylprednisolone 40 mg IV every 8 hours continues-no change for now
CT chest reviewed with progressed findings, possible related to progression of ILD
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
But need to rule out infection/volume
proBNP 735
PCT neg
Placed on CAP coverage-Finite course of 5 days
Sputum culture-poor specimen
Quantify hemoptysis
Follow radiographically
Echocardiogram 05/08/2024-EF 55-60%, stage II diastolic dysfunction, moderate mitral stenosis, moderate mitral regurgitation, moderate aortic stenosis PA systolic 50-55
Cardiology evaluation noted
Diuresis as tolerated
Monitor renal function, electrolytes, intake/output, lower extremity edema and weight
Replace electrolytes as needed
Monitor blood sugars
Insulin supplementation as needed
Doubt diffuse alveolar hemorrhage given chronically stable Hgb
Follow hemoglobin-currently stable at 10.7
Would not tolerate bronchoscopy at this point
Per patient:
NM ST 1 y ago, colonoscopy 3 m ago, prostate exam 1 y ago: all normal
Flu shot 2020
COVID vaccinated and boosted
Confirmed code status to be DNR
Diagnostic tests:
CXR PA/lat -, c/w caustic liquor maker CT films
CXR 09-04-13: c/w 10-28-11- No gross parenchymal abnormalities. Mild elevation of R diaphragm
CT chest 05/06/24- No evidence of pulmonary embolus. Severe bilateral groundglass densities as described above. Significantly progressed. Probable interstitial lung disease. Superimposed pneumonia cannot be excluded. Moderate mediastinal and mild
left hilar lymphadenopathy. Likely reactive. Stable. Moderate emphysematous disease. Progressed.
Chest CTA 03-24-22 IMPRESSION:
1. No evidence of pulmonary embolism.
2. Findings suggesting scattered areas of pneumonitis/pneumonia and probable pulmonary edema/hemorrhage.
3. Underlying chronic interstitial changes.
Reports and relevant images were personally reviewed.
Subjective Data
-
Date of Service:
Date of Service: May 11, 2024
Chief Complaint: Pulmonary Follow Up and Dyspnea Follow Up
Subjective:
Still on high flow oxygen, hemoptysis slightly decreased, no complaints of chest pain or abdominal pain
Review of Systems
General: Other (Per HPI)
Objective Data
Data Reviewed
Vital Signs / I&O:
Vital Signs
Temp Pulse Resp BP Pulse Ox
97.5 F 84 19 141/74 92
05/11/24 07:12 05/11/24 08:18 05/11/24 04:00 05/11/24 08:18 05/11/24 07:29
Intake and Output
05/10/24 05/11/24 05/12/24
06:59 06:59 06:59
Intake Total 600 / 600
Output Total 1550 / 1550 1850 / 1850
Balance -1550 / -1550 -1250 / -1250
SaO2: 92
Nasal Cannula flow liters per minute: 50
Physical Exam
General: Respiratory Distress (n), Comfortable and Other (NAD)
HEENT: Normocephalic, Anicteric and Moist Mucous Membranes
Cardiovascular: Regular Rhythm
Respiratory: Crackles and Non-Labored Respirations
GI: Soft, Non Distended and Non Tender
Neurology: Awake, Alert, Oriented and No Motor Deficits
Skin: Warm, Good Color, Cyanosis (n) and Jaundice (n)
Labs/Micro/Reports
Lab Data
05/11/24 05:28
05/11/24 05:28
Microbiology
05/05/24 13:36 Blood/Venous Blood Culture - Final
No Growth - Final Report
05/05/24 13:36 Blood/Venous Blood Culture - Final
No Growth - Final Report
[2024-05-11] MEDS: ROXICODONE 10 MG PO (11:20)
[2024-05-11] MEDS: TYLENOL 325 MG PO (11:21)
[2024-05-11] MEDS: ROCEPHIN 1000 MG IV (14:52)
[2024-05-11] MEDS: STERILE WATER FOR INJECTION 10 ML IV (14:52)
--- NOTE | 2024-05-11 14:57 | W.PN.HOSP.TC ---
Today's Communication/Plan
-
cont steroids, 1 more day of abx
gentle diuresis
wean o2 reqs as toleated
Goal o2>87%
Assessment / Plan
Assessment / Plan
78yo M with PMHx of ILD, GERD, insomnia, HLD, AAA s/p repair in 2000 and 6mo ago, BPH came with SOB became apparent 1 week before admission, admitted for ILD flare with pneumonia. Patient noticed dark-colored sputum since the onset of dyspnea, with
concern for hemoptysis on admission.
Also few months of non-specific abdominal discomfort
A/P:
#Acute hypoxic respiratory failure
2/2 ILD flare and possible Viral pneumonia
COVID-19 and influenza PCR neg
check sputum Cx - neg
legionella and S.pneumonia urinary AG pending
Bcx NTD
Ceftriaxone/Azithromycin - reasonable to cont even with neg Procalcitonin,
Wean off O2 if possible
Bronchodilators
IV steroids
Pulm consult
CT chest: No PE, Severe bilateral groundglass densities as described above. Significantly progressed. Probable interstitial lung disease. Superimposed pneumonia cannot be excluded
avoid antiplatelets and anticoagulation with reported hemoptysis
ProBNP elevated to 735 (previous 278 in 2021) -echo�mild concentric left ventricular hypertrophy, stage II diastolic dysfunction
EF 55 to 60%
MS, MR and - moderate;
switch to PO lasix
#AAA s/p repair
with chronic abd discomfort
CT abd with 5.6cm AAA and iliac stent
Vascular consult: known postOP discomfort without concerning findings on CT
#Anemia of chronic disease
#B12 deficiency
#Iron deficiency
cyanocobalamin IM
High retics and mildly elevated LDH - check GIOVANNA
-oral ferrous sulfate on dc
#Hyponatremia
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
� Continue to monitor
#bilirubinemia on admission
minimal
Resolved
#HLD
#Chronic pain
#GERD
#anxiety d/o
#Insomnia
#BPH with PMHX of prostate CA
#Opioid-induced constipation, chronic
cont home meds
#Irregular HR
mostly sinus on tele
cont tele
EKG
DVT ppx HSQ
FUll code
GOC convo - prognosis guarded
I have spent at least 54min reviewing the chart, test results, communication with consultants and direct patient care
Anticipated Discharge: > 48 hours
Subjective/Interval History
-
Date of Service: May 11, 2024
down to 50L, still 100%
Objective Data
-
Labs:
Laboratory Results
05/11/24
05:28
WBC 11.2 H
Hgb 11.6 L
Hct 35.1 L
Plt Count 217
Sodium 136
Potassium 4.1
Chloride 100
Carbon Dioxide 27
BUN 25 H
Creatinine 0.5 L
Glucose 140 H
Calcium 9.2
Total Bilirubin 1.0
AST 26
ALT 55 H
Alkaline Phosphatase 98
Vital Signs:
Vital Signs
Temp Pulse Resp BP Pulse Ox
97.5 F 84 19 141/74 97
05/11/24 12:08 05/11/24 08:18 05/11/24 04:00 05/11/24 08:18 05/11/24 14:16
I&O
05/10/24 05/11/24 05/12/24
06:59 06:59 06:59
Intake Total 600 / 600
Output Total 1550 / 1550 1850 / 1850
Balance -1550 / -1550 -1250 / -1250
Review of Systems
-
History Source: Patient
All other systems: Not reviewed unless documented
Data Reviewed
-
CT Scan: Image personally visualized and interpreted and Report Reviewed by me
Medical Tests (Nuc Med, Echo etc): Report Reviewed by me
Labs: Labs Reviewed by me
[2024-05-11] MEDS: EFFEXOR XR 37.5 MG PO (21:27)
[2024-05-11] MEDS: CRESTOR 20 MG PO (21:27)
[2024-05-11] MEDS: FLOMAX 0.4 MG PO (21:27)
[2024-05-11] MEDS: AMBIEN 10 MG PO (21:28)
[2024-05-11] MEDS: PEPCID 10 MG PO (21:28)
[2024-05-11] MEDS: PROTONIX 40 MG PO (21:28)
[2024-05-12] VITALS (11 sets, daily range): BP systolic 111–149; BP diastolic 67–116; BMI 25.5
[2024-05-12] MEDS: SOLU-MEDROL PF 40 MG IV ×3 (03:00→17:59)
[2024-05-12 05:20] LABS: Hemoglobin 11.5 g/dL (13.0-18.0); Mean Corp Hgb Conc. 34.8 g/dL (33.0-37.0); Mean Corpuscular Hgb 30.7 pg (27.0-31.0); Mean Corpuscular Volume 88.2 fL (80.0-94.0); Mean Platelet Volume 8.9 fL (7.4-10.4); Platelet Count 226 10^3/uL (130-400); Red Blood Cell Count 3.74 10^6/uL (4.70-6.10); Red Cell Dist. Width 15.1 % (11.5-14.5)
--- NOTE | 2024-05-12 05:21 | PTCARENOTE ---
Pt tolerating HF wean. Currently at 50L 80% per RT. Pt with complaint of SOB at start of shift requiring one dose of PRN morphine with relief. Pt denies additional complaints. Call pulido within reach.
[2024-05-12 06:25] LABS: ALT (SGPT) 50 U/L (0-50); AST (SGOT) 24 U/L (17-59); Albumin 3.5 g/dl (3.5-5.0); Alkaline Phosphatase 86 U/L (38-126); Blood Urea Nitrogen 24 mg/dl (9-20); Carbon Dioxide 26 mmol/L (22-30); Chloride 100 mmol/L (98-107); Estimated Creatinine Clearance 95 ml/min; Glucose 130 mg/dl (70-99); Potassium 4.4 mmol/L (3.5-5.1); Sodium 136 mmol/L (135-145); eGFR > 60.00
[2024-05-12] MEDS: ADVAIR HFA 230/21 MCG INHALER 2 PUFF INH ×2 (07:47→20:39)
--- NOTE | 2024-05-12 09:55 | W.PN.PUL.V3 ---
Today's Communication / Plan
-
.
Continue steroids-does not appear to have made a marked difference yet.
Gentle diuresis.
Goals of care discussion ongoing-realistically told patient he has not improved significantly and may consider comfort and discharged to home, however, would like to try for several more days in the hospital
Assessment
-
Patient is a 78-year-old male with previous history of ILD, COPD, hyperlipidemia presenting to ER for shortness of breath that has been ongoing for the past few days. He reportedly had oxygen desaturation at home into the 80s. He has also
comorbid mild coughing, productive mucus, abdominal discomfort, bloating. In ER, he was hypoxemic, now placed on 10L MF. CT showing worsening groundglass opacities and ILD findings compared to prior. He does feel his functional capacity has
declined. We are consulted for eval.
Acute hypoxic respiratory failure on 10L MF
Acute on chronic SOB
Suspect progression of pulmonary fibrosis
Hemoptysis
Abnormal CT, increased GGOs
Lactic acidosis
Hyponatremia, mild
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
CT Chest 03/24/22 revealed mild-moderate centrilobular and paraseptal emphysematous changes; also with fibrosis/traction bronchiectasis/honeycombing
DLCO is moderately impaired at 45%. Last 6MWT showing wesley at 88% with quick recovery, not needing O2
COPD/emphysema, follows Dr Martinez
PFT obtained showing no obstruction and improved from prior.
Spiriva taken daily, continue albuterol inhaler as needed.
Mediastinal LAD: unknown chronicity and etiology, could be associated with ILD
AAA repair 1999 [facility]
Moderate mitral stenosis
Moderate mitral regurgitation
Moderate aortic stenosis
Former smoker: 2 ppd for 40 y, quit Jul 1999
Chronic lumbar pain, on oxycodone
HLD
Reported ulcerative colitis
Constipation
Insomnia, on zolpidem
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
Fracture proximal phalanx of lesser toe (L) Mar 2021
Plan:
Respiratory status continues to be tenuous
Continue supplemental oxygen-currently on high flow, attempt to wean-reviewed with CHARGE ACCOUNTS AUDIT CLERK--continue to try nonrebreather possibly in addition to high flow
Eventual home oxygen evaluation-not on home oxygen
Aspiration precautions
Nebulizers if needed-currently not bronchospastic
Mucolytic's
Acapella
Methylprednisolone 40 mg IV every 8 hours continues-no change for now
CT chest reviewed with progressed findings, possible related to progression of ILD
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
But need to rule out infection/volume
proBNP 735
PCT neg
Placed on CAP coverage-Finite course of 5 days
Sputum culture-poor specimen
Quantify hemoptysis
Follow radiographically
Echocardiogram 05/08/2024-EF 55-60%, stage II diastolic dysfunction, moderate mitral stenosis, moderate mitral regurgitation, moderate aortic stenosis PA systolic 50-55
Cardiology evaluation noted
Diuresis as tolerated
Monitor renal function, electrolytes, intake/output, lower extremity edema and weight
Replace electrolytes as needed
Monitor blood sugars
Insulin supplementation as needed
Doubt diffuse alveolar hemorrhage given chronically stable Hgb
Follow hemoglobin-currently stable at 10.7
Would not tolerate bronchoscopy at this point
Per patient:
NM ST 1 y ago, colonoscopy 3 m ago, prostate exam 1 y ago: all normal
Flu shot 2020
COVID vaccinated and boosted
Ongoing daily discussions about goals of care-patient clearly wants to go home.-If no better in several days. It sounds like he may be leaning towards home. Discharge, possibly with hospice
Confirmed code status to be DNR
Diagnostic tests:
CXR PA/lat 10-20, c/w porter head CT films
CXR 09-04-13: c/w 10-28-11- No gross parenchymal abnormalities. Mild elevation of R diaphragm
CT chest 05/06/24- No evidence of pulmonary embolus. Severe bilateral groundglass densities as described above. Significantly progressed. Probable interstitial lung disease. Superimposed pneumonia cannot be excluded. Moderate mediastinal and mild
left hilar lymphadenopathy. Likely reactive. Stable. Moderate emphysematous disease. Progressed.
Chest CTA 03-24-22 IMPRESSION:
1. No evidence of pulmonary embolism.
2. Findings suggesting scattered areas of pneumonitis/pneumonia and probable pulmonary edema/hemorrhage.
3. Underlying chronic interstitial changes.
Reports and relevant images were personally reviewed.
Subjective Data
-
Date of Service:
Date of Service: May 12, 2024
Chief Complaint: Pulmonary Follow Up and Dyspnea Follow Up
Subjective:
Overall not much improvement, overall hemoptysis is decreased, no complaints of chest pain or abdominal pain
Review of Systems
General: Other (per HPI)
Objective Data
Data Reviewed
Vital Signs / I&O:
Vital Signs
Temp Pulse Resp BP Pulse Ox
97.8 F 88 24 111/88 97
05/12/24 07:00 05/12/24 07:54 05/12/24 07:54 05/12/24 04:00 05/12/24 08:59
Intake and Output
05/11/24 05/12/24 05/13/24
06:59 06:59 06:59
Intake Total 600 / 600 900 / 900
Output Total 1850 / 1850 1900 / 1900
Balance -1250 / -1250 -1000 / -1000
SaO2: 97
Nasal Cannula flow liters per minute: 60
Physical Exam
General: Respiratory Distress (n), Comfortable and Other (NAD)
HEENT: Normocephalic, Anicteric and Moist Mucous Membranes
Cardiovascular: Regular Rhythm
Respiratory: Crackles and Non-Labored Respirations
GI: Soft, Non Distended and Non Tender
Neurology: Awake, Alert, Oriented and No Motor Deficits
Skin: Warm, Good Color, Cyanosis (n) and Jaundice (n)
Labs/Micro/Reports
Lab Data
05/12/24 05:07
05/12/24 05:07
Microbiology
05/05/24 13:36 Blood/Venous Blood Culture - Final
No Growth - Final Report
05/05/24 13:36 Blood/Venous Blood Culture - Final
No Growth - Final Report
[2024-05-12] MEDS: ROXICODONE 10 MG PO ×2 (11:13→15:21)
[2024-05-12] MEDS: MORPHINE SULFATE 1 MG IV ×3 (11:15→21:21)
[2024-05-12] MEDS: ZITHROMAX 500 MG PO (11:20)
[2024-05-12] MEDS: LASIX 20 MG PO (11:20)
[2024-05-12] MEDS: CYANOCOBALAMIN 1000 MCG IM (11:21)
[2024-05-12] MEDS: HEPARIN 5000 UNITS SC ×2 (11:21→21:21)
[2024-05-12] MEDS: FLUSH (NSS) 2 FLUSH IV (11:22)
[2024-05-12] MEDS: STERILE WATER FOR INJECTION 10 ML IV (14:42)
[2024-05-12] MEDS: ROCEPHIN 1000 MG IV (14:42)
[2024-05-12] MEDS: FLUSH (NSS) 1 FLUSH IV (14:42)
--- NOTE | 2024-05-12 15:00 | W.PN.HOSP.TC ---
Today's Communication/Plan
-
wean o2
steroids
copleting course of abx
Assessment / Plan
Assessment / Plan
78yo M with PMHx of ILD, GERD, insomnia, HLD, AAA s/p repair in 2000 and 6mo ago, BPH came with SOB became apparent 1 week before admission, admitted for ILD flare with pneumonia. Patient noticed dark-colored sputum since the onset of dyspnea, with
concern for hemoptysis on admission.
Also few months of non-specific abdominal discomfort
A/P:
#Acute hypoxic respiratory failure
2/2 ILD flare and possible Viral pneumonia
COVID-19 and influenza PCR neg
check sputum Cx - neg
legionella and S.pneumonia urinary AG pending
Bcx NTD
Ceftriaxone/Azithromycin - reasonable to cont even with neg Procalcitonin, (received 7 day course, can give azithro for 5 days)
Wean off O2 if possible
Bronchodilators
IV steroids
Pulm consult
CT chest: No PE, Severe bilateral groundglass densities as described above. Significantly progressed. Probable interstitial lung disease. Superimposed pneumonia cannot be excluded
avoid antiplatelets and anticoagulation with reported hemoptysis
ProBNP elevated to 735 (previous 278 in 2021) -echo�mild concentric left ventricular hypertrophy, stage II diastolic dysfunction
EF 55 to 60%
MS, MR and - moderate;
switch to PO lasix
#AAA s/p repair
with chronic abd discomfort
CT abd with 5.6cm AAA and iliac stent
Vascular consult: known postOP discomfort without concerning findings on CT
#Anemia of chronic disease
#B12 deficiency
#Iron deficiency
cyanocobalamin IM
High retics and mildly elevated LDH - check GIOVANNA
-oral ferrous sulfate on dc
#Hyponatremia
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
� Continue to monitor
#bilirubinemia on admission
minimal
Resolved
#HLD
#Chronic pain
#GERD
#anxiety d/o
#Insomnia
#BPH with PMHX of prostate CA
#Opioid-induced constipation, chronic
cont home meds
#Irregular HR
mostly sinus on tele
cont tele
EKG
DVT ppx HSQ
FUll code
GOC convo - prognosis guarded
I have spent at least 52min reviewing the chart, test results, communication with consultants and direct patient care
Anticipated Discharge: > 48 hours
Subjective/Interval History
-
Date of Service: May 12, 2024
attempting to wean
Objective Data
-
Labs:
Laboratory Results
05/12/24
05:07
WBC 12.0 H
Hgb 11.5 L
Hct 33.0 L
Plt Count 226
Sodium 136
Potassium 4.4
Chloride 100
Carbon Dioxide 26
BUN 24 H
Creatinine 0.5 L
Glucose 130 H
Calcium 9.0
Total Bilirubin 1.0
AST 24
ALT 50
Alkaline Phosphatase 86
Vital Signs:
Vital Signs
Temp Pulse Resp BP Pulse Ox
97.8 F 94 27 134/80 94
05/12/24 11:34 05/12/24 12:00 05/12/24 12:00 05/12/24 12:00 05/12/24 13:25
I&O
05/11/24 05/12/24 05/13/24
06:59 06:59 06:59
Intake Total 600 / 600 900 / 900
Output Total 1850 / 1850 1900 / 1900
Balance -1250 / -1250 -1000 / -1000
Review of Systems
-
History Source: Patient
All other systems: Not reviewed unless documented
Physical Exam
-
General: No Apparent Distress
HEENT: Moist Mucous Membranes
Respiratory: Clear to Auscultation
GI: Soft, Nontender and Nondistended
Neuro: Awake, Alert, Oriented and AO x 3
Psych: Calm
Data Reviewed
-
CT Scan: Image personally visualized and interpreted and Report Reviewed by me
Medical Tests (Nuc Med, Echo etc): Report Reviewed by me
Labs: Labs Reviewed by me
[2024-05-12] MEDS: TYLENOL 325 MG PO (15:22)
--- NOTE | 2024-05-12 16:38 | CM ---
Patient receiving high flow O2. Receiving PO Abx, IV Steroids.
CM continuing to follow for d/c needs.
Plan follow patient's O2 needs, mobility.
Plan TBD.
--- NOTE | 2024-05-12 18:53 | PTCARENOTE ---
Patient AAOx3. Patient on high flow oxygen, weaned to 60L 60%. Pulse ox 90-92%. Patient SOB on minimal exertion. VS stable. SR with PAC's. Using urinal independently.
[2024-05-12] MEDS: PROTONIX 40 MG PO (21:20)
[2024-05-12] MEDS: FLOMAX 0.4 MG PO (21:20)
[2024-05-12] MEDS: CRESTOR 20 MG PO (21:20)
[2024-05-12] MEDS: EFFEXOR XR 37.5 MG PO (21:20)
[2024-05-12] MEDS: AMBIEN 10 MG PO (21:20)
[2024-05-12] MEDS: PEPCID 10 MG PO (21:20)
[2024-05-12] MEDS: FLUSH (NSS) 3 FLUSH IV (21:22)
[2024-05-13] VITALS (11 sets, daily range): BP systolic 107–142; BP diastolic 67–90
[2024-05-13] MEDS: MORPHINE SULFATE 1 MG IV ×5 (02:27→23:16)
[2024-05-13] MEDS: SOLU-MEDROL PF 40 MG IV ×3 (02:28→17:42)
[2024-05-13 03:14] LABS: Hematocrit 34.4 % (39.0-52.0); Hemoglobin 11.7 g/dL (13.0-18.0); Mean Platelet Volume 9.1 fL (7.4-10.4); Platelet Count 235 10^3/uL (130-400); Red Blood Cell Count 3.78 10^6/uL (4.70-6.10); Red Cell Dist. Width 15.3 % (11.5-14.5)
[2024-05-13 03:35] LABS: ALT (SGPT) 43 U/L (0-50); AST (SGOT) 20 U/L (17-59); Albumin 3.5 g/dl (3.5-5.0); Alkaline Phosphatase 79 U/L (38-126); Blood Urea Nitrogen 23 mg/dl (9-20); Carbon Dioxide 26 mmol/L (22-30); Chloride 99 mmol/L (98-107); Estimated Creatinine Clearance 95 ml/min; Glucose 146 mg/dl (70-99); Magnesium 2.4 mg/dl (1.6-2.3); Potassium 4.1 mmol/L (3.5-5.1); Sodium 135 mmol/L (135-145); eGFR > 60.00
[2024-05-13] MEDS: LASIX 20 MG PO (07:33)
[2024-05-13] MEDS: HEPARIN 5000 UNITS SC ×2 (07:33→19:30)
[2024-05-13] MEDS: ZITHROMAX 500 MG PO (07:33)
[2024-05-13] MEDS: CYANOCOBALAMIN 1000 MCG IM (07:34)
[2024-05-13] MEDS: ADVAIR HFA 230/21 MCG INHALER 2 PUFF INH ×2 (07:36→20:13)
--- NOTE | 2024-05-13 08:00 | PTCARENOTE ---
received patient at change of shift from previous RN. Pt AAOX3, resting comfortably in bed. pt denies pain. Pt on high flow nasal cannula, 60 L 60%. lung sounds diminished with scattered crackles, pt will desat into the 80s with activity or any type
of exertion. SR on telemetry heart rate in 90s. pulses palpable. active bowel sounds, tolerating diet. voiding in urinal. see worklist for full nursing assessment and interventions, pt updated on plan of care.
--- NOTE | 2024-05-13 09:18 | W.PN.PUL3 ---
Today's Communication / Plan
-
Continue steroids-does not appear to have made a marked difference yet.
Gentle diuresis.
Goals of care discussion ongoing-realistically told patient he has not improved significantly and may consider comfort and discharged to home, however, would like to try for several more days in the hospital
Assessment
-
Patient is a 78-year-old male with previous history of ILD, COPD, hyperlipidemia presenting to ER for shortness of breath that has been ongoing for the past few days. He reportedly had oxygen desaturation at home into the 80s. He has also
comorbid mild coughing, productive mucus, abdominal discomfort, bloating. In ER, he was hypoxemic, now placed on 10L MF. CT showing worsening groundglass opacities and ILD findings compared to prior. He does feel his functional capacity has
declined. We are consulted for eval.
Impression:
Acute hypoxic respiratory failure now on high-flow nasal cannula
Acute on chronic SOB
Suspect progression of pulmonary fibrosis
Hemoptysis (non-life threatening)
Abnormal CT, increased GGOs
Lactic acidosis (resolved since 05/05/2024)
Hyponatremia - resolved
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
CT Chest 03/24/22 revealed mild-moderate centrilobular and paraseptal emphysematous changes; also with fibrosis/traction bronchiectasis/honeycombing
DLCO is moderately impaired at 45%. Last 6MWT showing wesley at 88% with quick recovery, not needing O2
COPD/emphysema, follows Dr Martinez
PFT obtained showing no obstruction and improved from prior.
Spiriva taken daily, continue albuterol inhaler as needed.
Mediastinal LAD: unknown chronicity and etiology, could be associated with ILD
AAA repair 1999 HUP
Moderate mitral stenosis
Moderate mitral regurgitation
Moderate aortic stenosis
Former smoker: 2 ppd for 40 y, quit Jul 1999
Chronic lumbar pain, on oxycodone
HLD
Reported ulcerative colitis
Constipation
Insomnia, on zolpidem
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
Fracture proximal phalanx of lesser toe (L) Mar 2021
Plan:
Respiratory status continues to be tenuous
Continue supplemental oxygen-currently on high flow, attempt to wean-reviewed with BOOK ILLUSTRATOR--continue to try nonrebreather possibly in addition to high flow
Eventual home oxygen evaluation-not on home oxygen
Aspiration precautions
Nebulizers if needed-currently not bronchospastic
Continue Advair 230mcg
Mucolytics
Acapella
Methylprednisolone 40 mg IV every 8 hours continues-no change for now
CT chest reviewed with progressed findings, possible related to progression of ILD
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
But need to rule out infection/volume
proBNP 735
PCT neg
Placed on CAP coverage (rocephin/zithromax)-Finite course of 5 days
Sputum culture-poor specimen
Quantify hemoptysis
Follow radiographically
Echocardiogram 05/08/2024-EF 55-60%, stage II diastolic dysfunction, moderate mitral stenosis, moderate mitral regurgitation, moderate aortic stenosis PA systolic 50-55
Cardiology evaluation noted
Diuresis as tolerated - now on PO lasix 20mg daily
Monitor renal function, electrolytes, intake/output, lower extremity edema and weight
Replace electrolytes as needed
Monitor blood sugars
Insulin supplementation as needed
Doubt diffuse alveolar hemorrhage given chronically stable Hgb
Follow hemoglobin
Would not tolerate bronchoscopy at this point
Per patient:
NM ST 1 y ago, colonoscopy 3 m ago, prostate exam 1 y ago: all normal
Flu shot 2020
COVID vaccinated and boosted
Ongoing daily discussions about goals of care-patient clearly wants to go home - It sounds like he may be leaning towards discharge, possibly with hospice
Confirmed code status to be DNR
Pulmonary service will continue to follow along
Diagnostic tests:
CXR PA/lat 10-20, c/w bonsai tender CT films
CXR 09-04-13: c/w 10-28-11- No gross parenchymal abnormalities. Mild elevation of R diaphragm
CT chest 05/06/24- No evidence of pulmonary embolus. Severe bilateral groundglass densities as described above. Significantly progressed. Probable interstitial lung disease. Superimposed pneumonia cannot be excluded. Moderate mediastinal and mild
left hilar lymphadenopathy. Likely reactive. Stable. Moderate emphysematous disease. Progressed.
Chest CTA 03-24-22 IMPRESSION:
1. No evidence of pulmonary embolism.
2. Findings suggesting scattered areas of pneumonitis/pneumonia and probable pulmonary edema/hemorrhage.
3. Underlying chronic interstitial changes.
Reports and relevant images were personally reviewed.
Total time spent today was 52 minutes for this encounter. Time includes reviewing laboratory test/imaging results, reviewing pertinent medical records, obtaining and reviewing medical history, performing an appropriate exam, ordering medications,
tests and procedures. Time also includes documentation of this encounter, coordinating patient care and communicating with other healthcare professionals. Total time does not include separately billed tests performed on this date of service.
Subjective Data
-
Date of Service:
Date of Service: May 13, 2024
Chief Complaint: Pulmonary Follow Up and Dyspnea Follow Up
Subjective:
Patient seen and evaluated at bedside. Patient's , Michelle, at bedside and all questions were answered. Patient currently on high flow nasal cannula with FiO2 60%, 55 L/min. He is saturating 100%, heart rate 83 and BP 130/82. He says he is still
coughing up small amounts of blood but it is less than half a dime sized.
Review of Systems
General: Other (Negative unless mentioned above)
Objective Data
Data Reviewed
Vital Signs / I&O / Oxygen:
Vital Signs
Temp Pulse Resp BP Pulse Ox
97.7 F 86 16 138/82 96
05/13/24 05:23 05/13/24 08:00 05/13/24 08:00 05/13/24 08:00 05/13/24 08:00
Intake and Output
05/12/24 05/13/24 05/14/24
06:59 06:59 06:59
Intake Total 900 / 900 1125 / 1125 480 / 480
Output Total 1900 / 1900 1850 / 1850
Balance -1000 / -1000 -725 / -725 480 / 480
SaO2 96
Nasal Cannula flow liters per 55
minute
Physical Exam
General: Respiratory Distress (n), Comfortable, Chills (n), Sweats (n) and Other (NAD)
HEENT: Normocephalic, Anicteric and Moist Mucous Membranes
Cardiovascular: S1-S2 and Peripheral Edema (n)
Respiratory: Wheeze (n), Crackles (Bilaterally), Rhonchi (n) and Non-Labored Respirations
GI: Soft, Non Distended, Non Tender and Normal Bowel Sounds
Neurology: AO x 3 and Tremors (n)
Skin: Warm, Dry, Cyanosis (n) and Jaundice (n)
Labs/Micro/Reports
Lab Data
05/13/24 02:56
05/13/24 02:56
Microbiology
05/05/24 13:36 Blood/Venous Blood Culture - Final
No Growth - Final Report
05/05/24 13:36 Blood/Venous Blood Culture - Final
No Growth - Final Report
[2024-05-13] MEDS: ROXICODONE 10 MG PO ×2 (10:51→17:41)
[2024-05-13] MEDS: TYLENOL 650 MG PO ×2 (10:52→17:41)
--- NOTE | 2024-05-13 14:20 | W.PN.HOSP.TC ---
Today's Communication/Plan
-
cont to wean o2
cont course with steroids
complete abx course
Assessment / Plan
Assessment / Plan
78yo M with PMHx of ILD, GERD, insomnia, HLD, AAA s/p repair in 2000 and 6mo ago, BPH came with SOB became apparent 1 week before admission, admitted for ILD flare with pneumonia. Patient noticed dark-colored sputum since the onset of dyspnea, with
concern for hemoptysis on admission.
Also few months of non-specific abdominal discomfort
A/P:
#Acute hypoxic respiratory failure
2/2 ILD flare and possible Viral pneumonia
COVID-19 and influenza PCR neg
check sputum Cx - neg
legionella and S.pneumonia urinary AG pending
Bcx NTD
Ceftriaxone/Azithromycin - reasonable to cont even with neg Procalcitonin, (received 7 day course, can give azithro for 5 days)
Wean off O2 if possible
Bronchodilators
IV steroids
Pulm consult
CT chest: No PE, Severe bilateral groundglass densities as described above. Significantly progressed. Probable interstitial lung disease. Superimposed pneumonia cannot be excluded
avoid antiplatelets and anticoagulation with reported hemoptysis
ProBNP elevated to 735 (previous 278 in 2021) -echo�mild concentric left ventricular hypertrophy, stage II diastolic dysfunction
EF 55 to 60%
MS, MR and - moderate;
switch to PO lasix
Finally weaned to 55L Flow and 60% - cont to wean; O2 goal >87%
Early ambulation, OOB to chair
#AAA s/p repair
with chronic abd discomfort
CT abd with 5.6cm AAA and iliac stent
Vascular consult: known postOP discomfort without concerning findings on CT
#Anemia of chronic disease
#B12 deficiency
#Iron deficiency
cyanocobalamin IM
High retics and mildly elevated LDH - check GIOVANNA
-oral ferrous sulfate on dc
#Hyponatremia
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
� Continue to monitor
#bilirubinemia on admission
minimal
Resolved
#HLD
#Chronic pain
#GERD
#anxiety d/o
#Insomnia
#BPH with PMHX of prostate CA
#Opioid-induced constipation, chronic
cont home meds
#Irregular HR
mostly sinus on tele
cont tele
EKG
DVT ppx HSQ
FUll code
GOC convo - prognosis guarded
I have spent at least 54min reviewing the chart, test results, communication with consultants and direct patient care
Anticipated Discharge: > 48 hours
Subjective/Interval History
-
Date of Service: May 13, 2024
Weaning down O2 requirement
Objective Data
-
Labs:
Laboratory Results
05/13/24
02:56
WBC 12.0 H
Hgb 11.7 L
Hct 34.4 L
Plt Count 235
Sodium 135
Potassium 4.1
Chloride 99
Carbon Dioxide 26
BUN 23 H
Creatinine 0.5 L
Glucose 146 H
Calcium 9.0
Total Bilirubin 1.0
AST 20
ALT 43
Alkaline Phosphatase 79
Vital Signs:
Vital Signs
Temp Pulse Resp BP Pulse Ox
97.9 F 101 17 122/78 94
05/13/24 12:12 05/13/24 14:00 05/13/24 14:00 05/13/24 10:01 05/13/24 14:00
I&O
05/12/24 05/13/24 05/14/24
06:59 06:59 06:59
Intake Total 900 / 900 1125 / 1125 480 / 480
Output Total 1900 / 1900 1850 / 1850
Balance -1000 / -1000 -725 / -725 480 / 480
Review of Systems
-
History Source: Patient
All other systems: Not reviewed unless documented
Data Reviewed
-
CT Scan: Image personally visualized and interpreted and Report Reviewed by me
Medical Tests (Nuc Med, Echo etc): Report Reviewed by me
Labs: Labs Reviewed by me
[2024-05-13] MEDS: PROTONIX 40 MG PO (19:23)
[2024-05-13] MEDS: CRESTOR 20 MG PO (19:24)
[2024-05-13] MEDS: EFFEXOR XR 37.5 MG PO (19:25)
[2024-05-13] MEDS: DULCOLAX 5 MG PO (19:25)
[2024-05-13] MEDS: FLOMAX 0.4 MG PO (19:25)
[2024-05-13] MEDS: PEPCID 10 MG PO (19:26)
[2024-05-13] MEDS: AMBIEN 10 MG PO (23:04)
[2024-05-14] VITALS (10 sets, daily range): BP systolic 116–148; BP diastolic 49–96; BMI 26.1
[2024-05-14] MEDS: SOLU-MEDROL PF 40 MG IV ×3 (03:23→17:40)
[2024-05-14] MEDS: FLUSH (NSS) 5 FLUSH IV (03:24)
[2024-05-14 05:58] LABS: Hematocrit 35.5 % (39.0-52.0); Mean Corp Hgb Conc. 33.8 g/dL (33.0-37.0); Mean Corpuscular Hgb 30.8 pg (27.0-31.0); Mean Corpuscular Volume 91.3 fL (80.0-94.0); Platelet Count 223 10^3/uL (130-400); Red Blood Cell Count 3.89 10^6/uL (4.70-6.10); Red Cell Dist. Width 15.4 % (11.5-14.5); White Blood Cell Count 12.5 10^3/uL (4.8-10.8)
[2024-05-14 06:17] LABS: ALT (SGPT) 47 U/L (0-50); AST (SGOT) 22 U/L (17-59); Albumin 3.4 g/dl (3.5-5.0); Alkaline Phosphatase 71 U/L (38-126); Blood Urea Nitrogen 27 mg/dl (9-20); Calcium 8.9 mg/dl (8.4-10.2); Carbon Dioxide 28 mmol/L (22-30); Chloride 100 mmol/L (98-107); Estimated Creatinine Clearance 95 ml/min; Glucose 139 mg/dl (70-99); Potassium 4.5 mmol/L (3.5-5.1); Sodium 133 mmol/L (135-145); Total Bilirubin 1.2 mg/dl (0.2-1.3); Total Protein 5.8 g/dl (6.3-8.2); eGFR > 60.00
[2024-05-14] MEDS: ADVAIR HFA 230/21 MCG INHALER 2 PUFF INH ×2 (07:16→19:31)
--- NOTE | 2024-05-14 07:30 | PTCARENOTE ---
report received. aaox3. vss. nsr. pt remains on hiflow . family at bedside. call pulido in reach. plan of care updated. will monitor.
[2024-05-14] MEDS: HEPARIN 5000 UNITS SC ×2 (07:49→20:12)
[2024-05-14] MEDS: LASIX 20 MG PO (07:49)
[2024-05-14] MEDS: CYANOCOBALAMIN 1000 MCG IM (07:49)
[2024-05-14] MEDS: MORPHINE SULFATE 1 MG IV ×2 (07:58→20:22)
--- NOTE | 2024-05-14 09:50 | W.PN.PUL3 ---
Today's Communication / Plan
-
Continue steroids-does not appear to have made a marked difference yet.
Check CRP tomorrow morning to see if it is elevated, and if it is low then would give more evidence to start weaning down steroids
Gentle diuresis.
Goals of care discussion ongoing-realistically told patient he has not improved significantly and may consider comfort and discharged to home, however, would like to try for several more days in the hospital
Assessment
-
Patient is a 78-year-old male with previous history of ILD, COPD, hyperlipidemia presenting to ER for shortness of breath that has been ongoing for the past few days. He reportedly had oxygen desaturation at home into the 80s. He has also
comorbid mild coughing, productive mucus, abdominal discomfort, bloating. In ER, he was hypoxemic, now placed on 10L MF. CT showing worsening groundglass opacities and ILD findings compared to prior. He does feel his functional capacity has
declined. We are consulted for eval.
Impression:
Acute hypoxic respiratory failure now on high-flow nasal cannula
Acute on chronic SOB
Suspect progression of pulmonary fibrosis
Hemoptysis (non-life threatening)
Abnormal CT, increased GGOs
Lactic acidosis (resolved since 05/05/2024)
Hyponatremia
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
CT Chest 03/24/22 revealed mild-moderate centrilobular and paraseptal emphysematous changes; also with fibrosis/traction bronchiectasis/honeycombing
DLCO is moderately impaired at 45%. Last 6MWT showing wesley at 88% with quick recovery, not needing O2
COPD/emphysema, follows Dr Martinez
PFT obtained showing no obstruction and improved from prior.
Spiriva taken daily, continue albuterol inhaler as needed.
Mediastinal LAD: unknown chronicity and etiology, could be associated with ILD
AAA repair 1999 HUP
Moderate mitral stenosis
Moderate mitral regurgitation
Moderate aortic stenosis
Former smoker: 2 ppd for 40 y, quit Jul 1999
Chronic lumbar pain, on oxycodone
HLD
Reported ulcerative colitis
Constipation
Insomnia, on zolpidem
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
Fracture proximal phalanx of lesser toe (L) Mar 2021
Plan:
Respiratory status continues to be tenuous
Continue supplemental oxygen-currently on high flow, attempt to wean-reviewed with NONPROFIT FUNDRAISER--continue to try nonrebreather possibly in addition to high flow
Eventual home oxygen evaluation-not on home oxygen
Aspiration precautions
Nebulizers if needed-currently not bronchospastic
Continue Advair 230mcg
Mucolytics
Acapella
Methylprednisolone 40 mg IV every 8 hours continues- consider weaning down to 40mg IV q12hr tomorrow
Check CRP
CT chest reviewed with progressed findings, possible related to progression of ILD
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
But need to rule out infection/volume
proBNP 735
PCT neg
Placed on CAP coverage (rocephin/zithromax)-Finite course of 5 days
Sputum culture-poor specimen
Quantify hemoptysis
Follow radiographically
Echocardiogram 05/08/2024-EF 55-60%, stage II diastolic dysfunction, moderate mitral stenosis, moderate mitral regurgitation, moderate aortic stenosis PA systolic 50-55
Cardiology evaluation noted
Diuresis as tolerated - now on PO lasix 20mg daily
Monitor renal function, electrolytes, intake/output, lower extremity edema and weight
Replace electrolytes as needed
Monitor blood sugars
Insulin supplementation as needed
Doubt diffuse alveolar hemorrhage given chronically stable Hgb
Follow hemoglobin
Would not tolerate bronchoscopy at this point
Per patient:
NM ST 1 y ago, colonoscopy 3 m ago, prostate exam 1 y ago: all normal
Flu shot 2020
COVID vaccinated and boosted
Ongoing daily discussions about goals of care-patient clearly wants to go home - It sounds like he may be leaning towards discharge, possibly with hospice
Confirmed code status to be DNR
Pulmonary service will continue to follow along
Diagnostic tests:
CXR PA/lat 03-26, c/w weaving instructor CT films
CXR 09-04-13: c/w 10-28-11- No gross parenchymal abnormalities. Mild elevation of R diaphragm
CT chest 05/06/24- No evidence of pulmonary embolus. Severe bilateral groundglass densities as described above. Significantly progressed. Probable interstitial lung disease. Superimposed pneumonia cannot be excluded. Moderate mediastinal and mild
left hilar lymphadenopathy. Likely reactive. Stable. Moderate emphysematous disease. Progressed.
Chest CTA 03-24-22 IMPRESSION:
1. No evidence of pulmonary embolism.
2. Findings suggesting scattered areas of pneumonitis/pneumonia and probable pulmonary edema/hemorrhage.
3. Underlying chronic interstitial changes.
Reports and relevant images were personally reviewed.
Total time spent today was 56 minutes for this encounter. Time includes reviewing laboratory test/imaging results, reviewing pertinent medical records, obtaining and reviewing medical history, performing an appropriate exam, ordering medications,
tests and procedures. Time also includes documentation of this encounter, coordinating patient care and communicating with other healthcare professionals. Total time does not include separately billed tests performed on this date of service.
Subjective Data
-
Date of Service:
Date of Service: May 14, 2024
Chief Complaint: Pulmonary Follow Up and Dyspnea Follow Up
Subjective:
Patient seen today at bedside. Currently on high flow nasal cannula at 60% FiO2, 55 L/min saturating 97%. Heart rate 83. He says he feels well. Eager to go home. Multiple family was at bedside and all questions were answered. Patient denies
chest pain, OTT, abdominal pain, nausea, fevers or chills.
Review of Systems
General: Other (Negative unless mentioned above)
Objective Data
Data Reviewed
Vital Signs / I&O / Oxygen:
Vital Signs
Temp Pulse Resp BP Pulse Ox
97.5 F 84 20 135/80 91
05/14/24 07:10 05/14/24 07:21 05/14/24 07:21 05/14/24 06:00 05/14/24 07:21
Intake and Output
05/13/24 05/14/24 05/15/24
06:59 06:59 06:59
Intake Total 1125 / 1125 1200 / 1200
Output Total 1850 / 1850 1200 / 1200 300 / 300
Balance -725 / -725 0 / 0 -300 / -300
SaO2 91
Nasal Cannula flow liters per 55
minute
Physical Exam
General: Respiratory Distress (n), Comfortable, Chills (n), Sweats (n) and Other (NAD)
HEENT: Normocephalic, Anicteric and Moist Mucous Membranes
Cardiovascular: S1-S2 and Peripheral Edema (n)
Respiratory: Wheeze (n), Crackles (Bilaterally), Rhonchi (n), Non-Labored Respirations and Other (Diminished breath sounds bilaterally)
GI: Soft, Non Distended, Non Tender and Normal Bowel Sounds
Neurology: AO x 3 and Tremors (n)
Skin: Warm, Dry, Cyanosis (n) and Jaundice (n)
Labs/Micro/Reports
Lab Data
05/14/24 05:35
05/14/24 05:35
[2024-05-14] MEDS: ROXICODONE 10 MG PO (14:27)
--- NOTE | 2024-05-14 15:59 | W.PN.HOSP.TC ---
Today's Communication/Plan
-
wean o2
can attempt to start weaning steroids soon
Assessment / Plan
Assessment / Plan
78yo M with PMHx of ILD, GERD, insomnia, HLD, AAA s/p repair in 2000 and 6mo ago, BPH came with SOB became apparent 1 week before admission, admitted for ILD flare with pneumonia. Patient noticed dark-colored sputum since the onset of dyspnea, with
concern for hemoptysis on admission.
Also few months of non-specific abdominal discomfort
A/P:
#Acute hypoxic respiratory failure
2/2 ILD flare and possible Viral pneumonia
COVID-19 and influenza PCR neg
check sputum Cx - neg
legionella and S.pneumonia urinary AG pending
Bcx NTD
Ceftriaxone/Azithromycin - reasonable to cont even with neg Procalcitonin, (received 7 day course, can give azithro for 5 days)
Wean off O2 if possible
Bronchodilators
IV steroids
Pulm consult
CT chest: No PE, Severe bilateral groundglass densities as described above. Significantly progressed. Probable interstitial lung disease. Superimposed pneumonia cannot be excluded
avoid antiplatelets and anticoagulation with reported hemoptysis
ProBNP elevated to 735 (previous 278 in 2021) -echo�mild concentric left ventricular hypertrophy, stage II diastolic dysfunction
EF 55 to 60%
MS, MR and - moderate;
switch to PO lasix
Finally weaned to 55L Flow and 60% - cont to wean; O2 goal >87%
Early ambulation, OOB to chair
#AAA s/p repair
with chronic abd discomfort
CT abd with 5.6cm AAA and iliac stent
Vascular consult: known postOP discomfort without concerning findings on CT
#Anemia of chronic disease
#B12 deficiency
#Iron deficiency
cyanocobalamin IM
High retics and mildly elevated LDH - check GIOVANNA
-oral ferrous sulfate on dc
#Hyponatremia
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
� Continue to monitor
#bilirubinemia on admission
minimal
Resolved
#HLD
#Chronic pain
#GERD
#anxiety d/o
#Insomnia
#BPH with PMHX of prostate CA
#Opioid-induced constipation, chronic
cont home meds
#Irregular HR
mostly sinus on tele
cont tele
EKG
DVT ppx HSQ
FUll code
GOC convo - prognosis guarded
I have spent at least 51min reviewing the chart, test results, communication with consultants and direct patient care
Anticipated Discharge: > 48 hours
Subjective/Interval History
-
Date of Service: May 14, 2024
No acute events
Objective Data
-
Labs:
Laboratory Results
05/14/24
05:35
WBC 12.5 H
Hgb 12.0 L
Hct 35.5 L
Plt Count 223
Sodium 133 L
Potassium 4.5
Chloride 100
Carbon Dioxide 28
BUN 27 H
Creatinine 0.5 L
Glucose 139 H
Calcium 8.9
Total Bilirubin 1.2
AST 22
ALT 47
Alkaline Phosphatase 71
Vital Signs:
Vital Signs
Temp Pulse Resp BP Pulse Ox
98 F 84 20 146/77 95
05/14/24 11:01 05/14/24 07:21 05/14/24 07:21 05/14/24 08:00 05/14/24 11:16
I&O
05/13/24 05/14/24 05/15/24
06:59 06:59 06:59
Intake Total 1125 / 1125 1200 / 1200
Output Total 1850 / 1850 1200 / 1200 300 / 300
Balance -725 / -725 0 / 0 -300 / -300
Review of Systems
-
History Source: Patient
All other systems: Not reviewed unless documented
Physical Exam
-
General: No Apparent Distress
HEENT: Moist Mucous Membranes
Respiratory: Clear to Auscultation
GI: Soft, Nontender and Nondistended
Neuro: Awake, Alert, Oriented and AO x 3
Psych: Calm
Data Reviewed
-
CT Scan: Image personally visualized and interpreted and Report Reviewed by me
Medical Tests (Nuc Med, Echo etc): Report Reviewed by me
Labs: Labs Reviewed by me
[2024-05-14] MEDS: CRESTOR 20 MG PO (21:58)
[2024-05-14] MEDS: PEPCID 10 MG PO (21:58)
[2024-05-14] MEDS: AMBIEN 10 MG PO (21:58)
[2024-05-14] MEDS: FLOMAX 0.4 MG PO (21:58)
[2024-05-14] MEDS: PROTONIX 40 MG PO (21:58)
[2024-05-14] MEDS: EFFEXOR XR 37.5 MG PO (21:58)
[2024-05-15] VITALS (12 sets, daily range): BP systolic 111–156; BP diastolic 68–100
[2024-05-15] MEDS: SOLU-MEDROL PF 40 MG IV ×3 (02:42→19:38)
[2024-05-15 05:26] LABS: Hematocrit 37.2 % (39.0-52.0); Hemoglobin 12.2 g/dL (13.0-18.0); Mean Corp Hgb Conc. 32.8 g/dL (33.0-37.0); Mean Corpuscular Volume 91.6 fL (80.0-94.0); Mean Platelet Volume 8.9 fL (7.4-10.4); Platelet Count 225 10^3/uL (130-400); Red Blood Cell Count 4.06 10^6/uL (4.70-6.10); Red Cell Dist. Width 15.8 % (11.5-14.5); White Blood Cell Count 11.7 10^3/uL (4.8-10.8)
[2024-05-15 05:44] LABS: ALT (SGPT) 53 U/L (0-50); AST (SGOT) 24 U/L (17-59); Albumin 3.5 g/dl (3.5-5.0); Alkaline Phosphatase 74 U/L (38-126); Blood Urea Nitrogen 23 mg/dl (9-20); Carbon Dioxide 27 mmol/L (22-30); Chloride 99 mmol/L (98-107); Estimated Creatinine Clearance 95 ml/min; Glucose 127 mg/dl (70-99); Magnesium 2.3 mg/dl (1.6-2.3); Phosphorus 2.9 mg/dl (2.5-4.5); Potassium 4.3 mmol/L (3.5-5.1); Sodium 133 mmol/L (135-145); Total Bilirubin 1.3 mg/dl (0.2-1.3); Total Protein 5.9 g/dl (6.3-8.2); eGFR > 60.00
[2024-05-15] MEDS: HEPARIN 5000 UNITS SC ×2 (07:50→19:38)
[2024-05-15] MEDS: CYANOCOBALAMIN 1000 MCG IM (07:50)
[2024-05-15] MEDS: LASIX 20 MG PO (07:50)
[2024-05-15] MEDS: MORPHINE SULFATE 1 MG IV ×3 (07:51→21:27)
[2024-05-15] MEDS: ADVAIR HFA 230/21 MCG INHALER 2 PUFF INH ×2 (08:10→19:34)
[2024-05-15] MEDS: ROXICODONE 10 MG PO ×2 (09:19→19:38)
--- NOTE | 2024-05-15 09:38 | W.PN.PUL3 ---
Today's Communication / Plan
-
Doing well, slowly improving
HFNC settings are 50%/50LPM- can transition to midflow if tolerates, reviewed wt RT
Wean IV steroids today to q12
Agree with daily diuresis as well
Encouraged continued OOB, PT/IS
Assessment
-
Patient is a 78-year-old male with previous history of ILD, COPD, hyperlipidemia presenting to ER for shortness of breath that has been ongoing for the past few days. He reportedly had oxygen desaturation at home into the 80s. He has also
comorbid mild coughing, productive mucus, abdominal discomfort, bloating. In ER, he was hypoxemic, now placed on 10L MF. CT showing worsening groundglass opacities and ILD findings compared to prior. He does feel his functional capacity has
declined. We are consulted for eval.
Impression:
Acute hypoxic respiratory failure now on high-flow nasal cannula
Acute on chronic SOB
Suspect progression of pulmonary fibrosis
Hemoptysis (non-life threatening)
Abnormal CT, increased GGOs
Lactic acidosis (resolved since 05/05/2024)
Hyponatremia
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
CT Chest 03/24/22 revealed mild-moderate centrilobular and paraseptal emphysematous changes; also with fibrosis/traction bronchiectasis/honeycombing
DLCO is moderately impaired at 45%. Last 6MWT showing wesley at 88% with quick recovery, not needing O2
COPD/emphysema, follows Dr Martinez
PFT obtained showing no obstruction and improved from prior.
Spiriva taken daily, continue albuterol inhaler as needed.
Mediastinal LAD: unknown chronicity and etiology, could be associated with ILD
AAA repair 1999 HUP
Moderate mitral stenosis
Moderate mitral regurgitation
Moderate aortic stenosis
Former smoker: 2 ppd for 40 y, quit Jul 1999
Chronic lumbar pain, on oxycodone
HLD
Reported ulcerative colitis
Constipation
Insomnia, on zolpidem
COVID vaccinated x2, boosted x2 (last 8 m TIRE GROOVER)
Fracture proximal phalanx of lesser toe (L) Mar 2021
Plan:
Respiratory status continues to be tenuous
Continue supplemental oxygen-currently on high flow, attempt to wean-reviewed with PROVIDER RELATIONS MANAGER--continue to try nonrebreather possibly in addition to high flow
Eventual home oxygen evaluation-not on home oxygen
Aspiration precautions
Nebulizers if needed-currently not bronchospastic
Continue Advair 230mcg
Mucolytics
Acapella
Methylprednisolone 40 mg IV every 8 hours --wean to q12 today
CT chest reviewed with progressed findings, possible related to progression of ILD
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
But need to rule out infection/volume
proBNP 735
PCT neg
Placed on CAP coverage (rocephin/zithromax)-Finite course of 5 days
Sputum culture-poor specimen
Quantify hemoptysis
Follow radiographically
Echocardiogram 05/08/2024-EF 55-60%, stage II diastolic dysfunction, moderate mitral stenosis, moderate mitral regurgitation, moderate aortic stenosis PA systolic 50-55
Cardiology evaluation noted
Diuresis as tolerated - now on PO lasix 20mg daily
Monitor renal function, electrolytes, intake/output, lower extremity edema and weight
Replace electrolytes as needed
Monitor blood sugars
Insulin supplementation as needed
Doubt diffuse alveolar hemorrhage given chronically stable Hgb
Follow hemoglobin
Would not tolerate bronchoscopy at this point
Per patient:
NM ST 1 y ago, colonoscopy 3 m ago, prostate exam 1 y ago: all normal
Flu shot 2020
COVID vaccinated and boosted
Ongoing daily discussions about goals of care-patient clearly wants to go home - It sounds like he may be leaning towards discharge, possibly with hospice
Confirmed code status to be DNR
Pulmonary service will continue to follow along
Diagnostic tests:
CXR PA/lat 10-20, c/w radial saw operator CT films
CXR 09-04-13: c/w 10-28-11- No gross parenchymal abnormalities. Mild elevation of R diaphragm
CT chest 05/06/24- No evidence of pulmonary embolus. Severe bilateral groundglass densities as described above. Significantly progressed. Probable interstitial lung disease. Superimposed pneumonia cannot be excluded. Moderate mediastinal and mild
left hilar lymphadenopathy. Likely reactive. Stable. Moderate emphysematous disease. Progressed.
Chest CTA 03-24-22 IMPRESSION:
1. No evidence of pulmonary embolism.
2. Findings suggesting scattered areas of pneumonitis/pneumonia and probable pulmonary edema/hemorrhage.
3. Underlying chronic interstitial changes.
Reports and relevant images were personally reviewed.
-----
Total time spent today was 50 minutes for this encounter. Time includes reviewing laboratory test/imaging results, reviewing pertinent medical records, obtaining and reviewing medical history, performing an appropriate exam, ordering medications,
tests and procedures. Time also includes documentation of this encounter, coordinating patient care and communicating with other healthcare professionals. Total time does not include separately billed tests performed on this date of service.
Subjective Data
-
Date of Service:
Date of Service: May 15, 2024
Chief Complaint: Pulmonary Follow Up and Dyspnea Follow Up
Subjective:
Making progress slowly, now on 50L/50%
No acute events ON, no worsening SOB
Feels tired
Objective Data
Data Reviewed
Vital Signs / I&O / Oxygen:
Vital Signs
Temp Pulse Resp BP Pulse Ox
97.7 F 83 16 135/79 93
05/15/24 07:31 05/15/24 08:13 05/15/24 08:13 05/15/24 07:50 05/15/24 08:14
Intake and Output
05/14/24 05/15/24 05/16/24
06:59 06:59 06:59
Intake Total 1200 / 1200 480 / 480
Output Total 1200 / 1200 1650 / 1650
Balance 0 / 0 -1170 / -1170
SaO2 93
Nasal Cannula flow liters per 50
minute
Physical Exam
General: Respiratory Distress (n), Comfortable, Chills (n), Sweats (n) and Other (NAD)
HEENT: Normocephalic, Anicteric and Moist Mucous Membranes
Cardiovascular: S1-S2 and Peripheral Edema (n)
Respiratory: Wheeze (n), Crackles (Bilaterally), Rhonchi (n), Non-Labored Respirations and Other (Diminished breath sounds bilaterally)
GI: Soft, Non Distended, Non Tender and Normal Bowel Sounds
Neurology: AO x 3 and Tremors (n)
Skin: Warm, Dry, Cyanosis (n) and Jaundice (n)
Labs/Micro/Reports
Lab Data
05/15/24 04:47
05/15/24 04:47
Microbiology
05/14/24 11:13 Sputum Respiratory Culture - Final
05/14/24 11:13 Sputum Gram Stain - Final
--- NOTE | 2024-05-15 15:58 | W.PN.HOSP.TC ---
Today's Communication/Plan
-
attempot to wean off O2
if unsuccessful - hospice in 2-3 days as per patient wishes
Assessment / Plan
Assessment / Plan
78yo M with PMHx of ILD, GERD, insomnia, HLD, AAA s/p repair in 2000 and 6mo ago, BPH came with SOB became apparent 1 week before admission, admitted for ILD flare with pneumonia. Patient noticed dark-colored sputum since the onset of dyspnea, with
concern for hemoptysis on admission. No improvement seen on week-lomng high dose steroids, obviously end-stage lung disease. Plan for home hospice if no further improvement
Also few months of non-specific abdominal discomfort
A/P:
#Acute hypoxic respiratory failure on 10L midline upon discharge 2/2 ILD flare and possible pneumonia with unspecified organism
#Concern for ABPA vs hemoptysis
COVID-19 and influenza PCR neg
sputum Cx neg
legionella and S.pneumonia urinary AG neg
Bcx NTD
Ceftriaxone/Azithromycin - completed
Wean off O2 if possible
Bronchodilators
Taper steroids
Pulm consult
CT chest: No PE, Severe bilateral groundglass densities as described above. Significantly progressed. Probable interstitial lung disease. Superimposed pneumonia cannot be excluded
avoid antiplatelets and anticoagulation with reported hemoptysis
ProBNP elevated to 735 (previous 278 in 2021) - Echo with preserved EF, mild concentric hypertrophy
#Hyponatremia
2/2 lung disease
#AAA s/p repair
with chronic abd discomfort
CT abd with 5.6cm AAA and iliac stent
Vascular consult: known postOP discomfort without concerning findings on CT
#Anemia of chronic disease
#B12 deficiency
Cyanocobalamin IM
High retics and mildly elevated LDH - check GIOVANNA
check FOBT
#bilirubinemia on admission
minimal
Resolved
#HLD
#Chronic pain
#GERD
#anxiety d/o
#Insomnia
#BPH with PMHX of prostate CA
#Opioid-induced constipation, chronic
cont home meds
#Irregular HR
mostly sinus on tele
cont tele
EKG
DVT ppx SCDs since also concern for hemoptysis
FUll code
I have spent at least 59min reviewing the chart, test results, communication with consultants and direct patient care
Anticipated Discharge: > 48 hours
Subjective/Interval History
-
Date of Service: May 15, 2024
Objective Data
-
Labs:
Laboratory Results
05/15/24
04:47
WBC 11.7 H
Hgb 12.2 L
Hct 37.2 L
Plt Count 225
Sodium 133 L
Potassium 4.3
Chloride 99
Carbon Dioxide 27
BUN 23 H
Creatinine 0.5 L
Glucose 127 H
Calcium 9.0
Total Bilirubin 1.3
AST 24
ALT 53 H
Alkaline Phosphatase 74
Vital Signs:
Vital Signs
Temp Pulse Resp BP Pulse Ox
97.6 F 75 17 140/87 96
05/15/24 11:20 05/15/24 12:00 05/15/24 12:00 05/15/24 12:00 05/15/24 12:00
I&O
05/14/24 05/15/24 05/16/24
06:59 06:59 06:59
Intake Total 1200 / 1200 480 / 480
Output Total 1200 / 1200 1650 / 1650 900 / 900
Balance 0 / 0 -1170 / -1170 -900 / -900
Review of Systems
-
History Source: Patient
All other systems: Reviewed and negative
Physical Exam
-
General: No Apparent Distress
HEENT: Moist Mucous Membranes
Respiratory: Crackles (bibasilar)
Cardiac: Regular Rhythm
GI: Soft, Nontender and Nondistended
Musculoskeletal: No Clubbing, No Cyanosis and No Edema
Neuro: Awake, Alert, Oriented and AO x 3
Psych: Calm
--- NOTE | 2024-05-15 17:42 | CM ---
High flow O2. Receiving IV Steroids, MS IV prn, Roxicodone.
Plan request PT/OT Evals once O2 needs improve.
Plan follow patient's O2 needs, mobility.
--- NOTE | 2024-05-15 17:56 | PTCARENOTE ---
Patient AOx3. Patient tearful throughout shift due to plan of care. Emotional support provided to patient. Patients at bedside throughout shift. Patient tolerating weaning of midflow from highflow. Patient on 15L with SpO2 greater than 88%.
Morphine provided to patient per MAR dyspnea. NSR with PAC's on monitor. Assist x1 OOB to chair. Bed in lowest position, call pulido within reach, wheels of bed locked.
--- NOTE | 2024-05-15 20:55 | PTCARENOTE ---
Received pt from previous RN. Pt is AAOx3. NSR w/ PACs on the monitor. On 15L midflow O2 sat 92%, lungs crackles/wheezing. Pt uses the urinal. Pt c/o back pain and pain in chest with deep inspiration, PRN pain medications given (see MAR). Pt is
laying in bed with call pulido in reach. Safe environment maintained.
[2024-05-15] MEDS: PEPCID 10 MG PO (21:26)
[2024-05-15] MEDS: EFFEXOR XR 37.5 MG PO (21:26)
[2024-05-15] MEDS: PROTONIX 40 MG PO (21:26)
[2024-05-15] MEDS: CRESTOR 20 MG PO (21:26)
[2024-05-15] MEDS: FLOMAX 0.4 MG PO (21:27)
[2024-05-15] MEDS: AMBIEN 10 MG PO (22:07)
[2024-05-16] VITALS (14 sets, daily range): BP systolic 91–148; BP diastolic 58–83; PULSE 87; O2SAT 93
[2024-05-16 04:39] LABS: Hematocrit 36.6 % (39.0-52.0); Hemoglobin 12.6 g/dL (13.0-18.0); Mean Corp Hgb Conc. 34.4 g/dL (33.0-37.0); Mean Corpuscular Hgb 30.2 pg (27.0-31.0); Mean Corpuscular Volume 87.8 fL (80.0-94.0); Mean Platelet Volume 8.8 fL (7.4-10.4); Platelet Count 228 10^3/uL (130-400); Red Blood Cell Count 4.17 10^6/uL (4.70-6.10); Red Cell Dist. Width 15.7 % (11.5-14.5); White Blood Cell Count 12.9 10^3/uL (4.8-10.8)
[2024-05-16 05:46] LABS: ALT (SGPT) 58 U/L (0-50); AST (SGOT) 26 U/L (17-59); Albumin 3.5 g/dl (3.5-5.0); Alkaline Phosphatase 67 U/L (38-126); Blood Urea Nitrogen 21 mg/dl (9-20); Carbon Dioxide 24 mmol/L (22-30); Chloride 100 mmol/L (98-107); Estimated Creatinine Clearance 95 ml/min; Glucose 141 mg/dl (70-99); Potassium 4.4 mmol/L (3.5-5.1); Sodium 133 mmol/L (135-145); Total Bilirubin 1.2 mg/dl (0.2-1.3); Total Protein 5.9 g/dl (6.3-8.2); eGFR > 60.00
[2024-05-16] MEDS: HEPARIN 5000 UNITS SC ×2 (07:09→21:04)
[2024-05-16] MEDS: CYANOCOBALAMIN 1000 MCG IM (07:09)
[2024-05-16] MEDS: MORPHINE SULFATE 1 MG IV ×3 (07:09→21:20)
[2024-05-16] MEDS: SOLU-MEDROL PF 40 MG IV ×2 (07:09→15:59)
[2024-05-16] MEDS: LASIX 20 MG PO (07:10)
[2024-05-16] MEDS: ADVAIR HFA 230/21 MCG INHALER 2 PUFF INH (07:13)
--- NOTE | 2024-05-16 08:55 | W.PN.PUL3 ---
Today's Communication / Plan
-
Slow progress but I think he is making some, returned to HFNC but may consider PAP therapy at night if able to get O2 requirements lower
HFNC weaning, reviewed with RT
Steroids increased but doing so does not determine ILD response
Continue observation, OOB/PT/IS
Assessment
-
Patient is a 78-year-old male with previous history of ILD, COPD, hyperlipidemia presenting to ER for shortness of breath that has been ongoing for the past few days. He reportedly had oxygen desaturation at home into the 80s. He has also
comorbid mild coughing, productive mucus, abdominal discomfort, bloating. In ER, he was hypoxemic, now placed on 10L MF. CT showing worsening groundglass opacities and ILD findings compared to prior. He does feel his functional capacity has
declined. We are consulted for eval.
Impression:
Acute hypoxic respiratory failure now on high-flow nasal cannula
Acute on chronic SOB
Suspect progression of pulmonary fibrosis
Hemoptysis (non-life threatening)
Abnormal CT, increased GGOs
Lactic acidosis (resolved since 05/05/2024)
Hyponatremia
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
CT Chest 03/24/22 revealed mild-moderate centrilobular and paraseptal emphysematous changes; also with fibrosis/traction bronchiectasis/honeycombing
DLCO is moderately impaired at 45%. Last 6MWT showing wesley at 88% with quick recovery, not needing O2
COPD/emphysema, follows Dr Martinez
PFT obtained showing no obstruction and improved from prior.
Spiriva taken daily, continue albuterol inhaler as needed.
Mediastinal LAD: unknown chronicity and etiology, could be associated with ILD
AAA repair 1999 HUP
Moderate mitral stenosis
Moderate mitral regurgitation
Moderate aortic stenosis
Former smoker: 2 ppd for 40 y, quit Jul 1999
Chronic lumbar pain, on oxycodone
HLD
Reported ulcerative colitis
Constipation
Insomnia, on zolpidem
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
Fracture proximal phalanx of lesser toe (L) Mar 2021
Plan:
Respiratory status continues to be tenuous
Continue supplemental oxygen-currently on high flow, attempt to wean-reviewed with OFFENSIVE COORDINATOR--continue to try nonrebreather possibly in addition to high flow
Eventual home oxygen evaluation-not on home oxygen
Aspiration precautions
Nebulizers if needed-currently not bronchospastic
Continue Advair 230mcg
Mucolytics
Acapella
Methylprednisolone 40 mg IV every 8 hours --wean to q12 today
CT chest reviewed with progressed findings, possible related to progression of ILD
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
But need to rule out infection/volume
proBNP 735
PCT neg
Placed on CAP coverage (rocephin/zithromax)-Finite course of 5 days
Sputum culture-poor specimen
Quantify hemoptysis
Follow radiographically
Echocardiogram 05/08/2024-EF 55-60%, stage II diastolic dysfunction, moderate mitral stenosis, moderate mitral regurgitation, moderate aortic stenosis PA systolic 50-55
Cardiology evaluation noted
Diuresis as tolerated - now on PO lasix 20mg daily
Monitor renal function, electrolytes, intake/output, lower extremity edema and weight
Replace electrolytes as needed
Monitor blood sugars
Insulin supplementation as needed
Doubt diffuse alveolar hemorrhage given chronically stable Hgb
Follow hemoglobin
Would not tolerate bronchoscopy at this point
Per patient:
NM ST 1 y ago, colonoscopy 3 m ago, prostate exam 1 y ago: all normal
Flu shot 2020
COVID vaccinated and boosted
Ongoing daily discussions about goals of care-patient clearly wants to go home - It sounds like he may be leaning towards discharge, possibly with hospice
Confirmed code status to be DNR
Pulmonary service will continue to follow along
Diagnostic tests:
CXR PA/lat 10-20, c/w rfid technician CT films
CXR 09-04-13: c/w 10-28-11- No gross parenchymal abnormalities. Mild elevation of R diaphragm
CT chest 05/06/24- No evidence of pulmonary embolus. Severe bilateral groundglass densities as described above. Significantly progressed. Probable interstitial lung disease. Superimposed pneumonia cannot be excluded. Moderate mediastinal and mild
left hilar lymphadenopathy. Likely reactive. Stable. Moderate emphysematous disease. Progressed.
Chest CTA 03-24-22 IMPRESSION:
1. No evidence of pulmonary embolism.
2. Findings suggesting scattered areas of pneumonitis/pneumonia and probable pulmonary edema/hemorrhage.
3. Underlying chronic interstitial changes.
Reports and relevant images were personally reviewed.
-----
Total time spent today was 50 minutes for this encounter. Time includes reviewing laboratory test/imaging results, reviewing pertinent medical records, obtaining and reviewing medical history, performing an appropriate exam, ordering medications,
tests and procedures. Time also includes documentation of this encounter, coordinating patient care and communicating with other healthcare professionals. Total time does not include separately billed tests performed on this date of service.
Subjective Data
-
Date of Service:
Date of Service: May 16, 2024
Chief Complaint: Pulmonary Follow Up and Dyspnea Follow Up
Subjective:
No new complaints, same level of SOB
Returned to [facility] through the night
Objective Data
Data Reviewed
Vital Signs / I&O / Oxygen:
Vital Signs
Temp Pulse Resp BP Pulse Ox
97.4 F 74 21 114/73 90
05/16/24 07:44 05/16/24 08:00 05/16/24 08:00 05/16/24 08:00 05/16/24 08:45
Intake and Output
05/15/24 05/16/24 05/17/24
06:59 06:59 06:59
Intake Total 480 / 480 100 / 100 480 / 480
Output Total 1650 / 1650 1820 / 1820 450 / 450
Balance -1170 / -1170 -1720 / -1720 30 / 30
SaO2 90
Nasal Cannula flow liters per 50
minute
Physical Exam
General: Respiratory Distress (n), Comfortable, Chills (n), Sweats (n) and Other (NAD)
HEENT: Normocephalic, Anicteric and Moist Mucous Membranes
Cardiovascular: S1-S2 and Peripheral Edema (n)
Respiratory: Wheeze (n), Crackles (Bilaterally), Rhonchi (n), Non-Labored Respirations and Other (Diminished breath sounds bilaterally)
GI: Soft, Non Distended, Non Tender and Normal Bowel Sounds
Neurology: AO x 3 and Tremors (n)
Skin: Warm, Dry, Cyanosis (n) and Jaundice (n)
Labs/Micro/Reports
Lab Data
05/16/24 04:22
05/16/24 04:22
Microbiology
05/14/24 11:13 Sputum Respiratory Culture - Final
05/14/24 11:13 Sputum Gram Stain - Final
[2024-05-16] MEDS: AYR SALINE NASAL GEL 1 APPLIC NASAL (09:04)
[2024-05-16 10:51] LABS: NT-proBNP 322 pg/ml
--- NOTE | 2024-05-16 12:58 | W.PN.HOSP.TC ---
Today's Communication/Plan
-
again on HFNC - increased Steroids back to TID
With improved proBNP - no role for additional diuresis to improve hypoxia
Assessment / Plan
Assessment / Plan
78yo M with PMHx of ILD, GERD, insomnia, HLD, AAA s/p repair in 2000 and 6mo ago, BPH came with SOB became apparent 1 week before admission, admitted for ILD flare with pneumonia. Patient noticed dark-colored sputum since the onset of dyspnea, with
concern for hemoptysis on admission. No improvement seen on week-lomng high dose steroids, obviously end-stage lung disease. Plan for home hospice if no further improvement
Also few months of non-specific abdominal discomfort
A/P:
#Acute hypoxic respiratory failure on 10L midline upon discharge 2/2 ILD flare and possible pneumonia with unspecified organism
#Concern for ABPA vs hemoptysis
COVID-19 and influenza PCR neg
sputum Cx neg
legionella and S.pneumonia urinary AG neg
Bcx NTD
Ceftriaxone/Azithromycin - completed
Wean off O2 if possible
Bronchodilators
Taper steroids
Pulm consult
CT chest: No PE, Severe bilateral groundglass densities as described above. Significantly progressed. Probable interstitial lung disease. Superimposed pneumonia cannot be excluded
avoid antiplatelets and anticoagulation with reported hemoptysis
ProBNP elevated to 735 (previous 278 in 2021) - Echo with preserved EF, mild concentric hypertrophy, BNP back to 322 after diuresis
#Hyponatremia
2/2 lung disease
#AAA s/p repair
with chronic abd discomfort
CT abd with 5.6cm AAA and iliac stent
Vascular consult: known postOP discomfort without concerning findings on CT
#Anemia of chronic disease
#B12 deficiency
Cyanocobalamin IM
High retics and mildly elevated LDH - check GIOVANNA
check FOBT
#bilirubinemia on admission
minimal
Resolved
#HLD
#Chronic pain
#GERD
#anxiety d/o
#Insomnia
#BPH with PMHX of prostate CA
#Opioid-induced constipation, chronic
cont home meds
#Irregular HR
mostly sinus on tele
cont tele
EKG
DVT ppx SCDs since also concern for hemoptysis
FUll code
I have spent at least 59min reviewing the chart, test results, communication with consultants and direct patient care
Anticipated Discharge: > 48 hours
Subjective/Interval History
-
Date of Service: May 16, 2024
Objective Data
-
Labs:
Laboratory Results
05/16/24
04:22
WBC 12.9 H
Hgb 12.6 L
Hct 36.6 L
Plt Count 228
Sodium 133 L
Potassium 4.4
Chloride 100
Carbon Dioxide 24
BUN 21 H
Creatinine 0.5 L
Glucose 141 H
Calcium 9.0
Total Bilirubin 1.2
AST 26
ALT 58 H
Alkaline Phosphatase 67
Vital Signs:
Vital Signs
Temp Pulse Resp BP Pulse Ox
98.1 F 91 19 113/81 93
05/16/24 11:30 05/16/24 12:00 05/16/24 12:00 05/16/24 12:00 05/16/24 12:00
I&O
05/15/24 05/16/24 05/17/24
06:59 06:59 06:59
Intake Total 480 / 480 100 / 100 480 / 480
Output Total 1650 / 1650 1820 / 1820 450 / 450
Balance -1170 / -1170 -1720 / -1720
Review of Systems
-
History Source: Patient
All other systems: Reviewed and negative
Respiratory: Reports Trouble Breathing
Physical Exam
-
General: No Apparent Distress
HEENT: Moist Mucous Membranes
Respiratory: Crackles
GI: Soft, Nontender and Nondistended
Neuro: Awake, Alert, Oriented and AO x 3
Psych: Calm
[2024-05-16] MEDS: ROXICODONE 10 MG PO (14:06)
--- NOTE | 2024-05-16 14:19 | PTCARENOTE ---
Dr. Yung made aware that patient had a 15 run beat of SVT on monitor. Patient resting comfortably in chair. Patient asymptomatic. No new orders at this time. Care ongoing.
[2024-05-16] MEDS: DUONEB 3 ML INH ×2 (15:25→19:29)
--- NOTE | 2024-05-16 16:47 | CM ---
High flow O2. Receiving IV Steroids, MS IV prn, Roxicodone. PT recommends HH.
Met with patient, Kelle and daughter;
patient, and daughter wanting to discuss possible need for hospice.
Explained that MD had not ordered hospice at this time- they have spoken with Dr Yung and are aware of possible need for hospice within the next few days if patient's respiratory status does not improve.
Explained hospice philosophy and benefits.
Patient asking if he can go home with hospice if needed.
Explained limitation of high flow O2 concentrator for home use.
Patient was tearful, saying he was hoping to go home to see his dog again.
Offered straddle carrier operator and patient declined saying he already had a blessing from a order expediter.
CM offered emotional support.
Plan follow patient's O2 needs, mobility.
Plan TBD.
--- NOTE | 2024-05-16 16:57 | PTCARENOTE ---
Patient AOx3. Patients at bedside throughout shift. Patient on highflow and weaned throughout shift by RT with SpO2 greater than 88%. Morphine provided to patient per MAR dyspnea. NSR with PAC's on monitor. VSS. Assist x1 OOB to chair. Bed in
lowest position, call pulido within reach, wheels of bed locked.
[2024-05-16] MEDS: PEPCID 10 MG PO (21:05)
[2024-05-16] MEDS: FLOMAX 0.4 MG PO (21:05)
[2024-05-16] MEDS: CRESTOR 20 MG PO (21:05)
[2024-05-16] MEDS: EFFEXOR XR 37.5 MG PO (21:07)
[2024-05-16] MEDS: PROTONIX 40 MG PO (21:07)
--- NOTE | 2024-05-16 21:30 | PTCARENOTE ---
Pt received from previous RN. Pt AAOx3, family at bedside. Pt on hiflow, sats 94%, pt does have periods of SOB satting down to 88%, pt recovers quickly back to above 90%. NSR with PACs. Pt HS took pills whole with water> pt provided with
ordered morphine for SOB. See MAR. Assessment as documented, call light in reach.
[2024-05-16] MEDS: AMBIEN 10 MG PO (22:54)
[2024-05-17] VITALS (12 sets, daily range): BP systolic 116–151; BP diastolic 48–86
[2024-05-17] MEDS: SOLU-MEDROL PF 40 MG IV ×3 (00:45→16:50)
[2024-05-17] MEDS: MORPHINE SULFATE 1 MG IV ×4 (02:25→21:07)
[2024-05-17 05:15] LABS: Hematocrit 37.9 % (39.0-52.0); Hemoglobin 12.7 g/dL (13.0-18.0); Mean Corp Hgb Conc. 33.5 g/dL (33.0-37.0); Mean Corpuscular Volume 89.4 fL (80.0-94.0); Mean Platelet Volume 9.3 fL (7.4-10.4); Platelet Count 229 10^3/uL (130-400); Red Blood Cell Count 4.24 10^6/uL (4.70-6.10); Red Cell Dist. Width 16.1 % (11.5-14.5); White Blood Cell Count 13.1 10^3/uL (4.8-10.8)
[2024-05-17] MEDS: ROXICODONE 10 MG PO (05:20)
[2024-05-17] MEDS: TYLENOL 325 MG PO (05:21)
[2024-05-17 06:02] LABS: Blood Urea Nitrogen 25 mg/dl (9-20); Calcium 8.9 mg/dl (8.4-10.2); Carbon Dioxide 28 mmol/L (22-30); Chloride 98 mmol/L (98-107); Estimated Creatinine Clearance 95 ml/min; Glucose 138 mg/dl (70-99); Potassium 4.6 mmol/L (3.5-5.1); Sodium 132 mmol/L (135-145); eGFR > 60.00
[2024-05-17] MEDS: DUONEB 3 ML INH ×4 (07:13→19:21)
[2024-05-17] MEDS: CYANOCOBALAMIN 1000 MCG IM (09:21)
[2024-05-17] MEDS: HEPARIN 5000 UNITS SC ×2 (09:22→21:01)
[2024-05-17] MEDS: LASIX 20 MG PO (09:23)
[2024-05-17] MEDS: DULCOLAX 5 MG PO (09:23)
--- NOTE | 2024-05-17 10:50 | W.PN.PUL3 ---
Today's Communication / Plan
-
Doing well today, transitioned back to midflow 15L, tolerating better
Encouraged continued OOB, PT, IS
Steroids ongoing IV
Family at bedside, updated on care
Assessment
-
Patient is a 78-year-old male with previous history of ILD, COPD, hyperlipidemia presenting to ER for shortness of breath that has been ongoing for the past few days. He reportedly had oxygen desaturation at home into the 80s. He has also
comorbid mild coughing, productive mucus, abdominal discomfort, bloating. In ER, he was hypoxemic, now placed on 10L MF. CT showing worsening groundglass opacities and ILD findings compared to prior. He does feel his functional capacity has
declined. We are consulted for eval.
Impression:
Acute hypoxic respiratory failure now on high-flow nasal cannula
Acute on chronic SOB
Suspect progression of pulmonary fibrosis
Hemoptysis (non-life threatening)
Abnormal CT, increased GGOs
Lactic acidosis (resolved since 05/05/2024)
Hyponatremia
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
CT Chest 03/24/22 revealed mild-moderate centrilobular and paraseptal emphysematous changes; also with fibrosis/traction bronchiectasis/honeycombing
DLCO is moderately impaired at 45%. Last 6MWT showing wesley at 88% with quick recovery, not needing O2
COPD/emphysema, follows Dr Martinez
PFT obtained showing no obstruction and improved from prior.
Spiriva taken daily, continue albuterol inhaler as needed.
Mediastinal LAD: unknown chronicity and etiology, could be associated with ILD
AAA repair 1999 HUP
Moderate mitral stenosis
Moderate mitral regurgitation
Moderate aortic stenosis
Former smoker: 2 ppd for 40 y, quit Jul 1999
Chronic lumbar pain, on oxycodone
HLD
Reported ulcerative colitis
Constipation
Insomnia, on zolpidem
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
Fracture proximal phalanx of lesser toe (L) Mar 2021
Plan:
Respiratory status continues to be tenuous, but doing better today--now on 15L midflow
Continue supplemental oxygen-currently on high flow, attempt to wean-reviewed with INFORMATION SECURITY OFFICER--continue to try nonrebreather possibly in addition to high flow
Eventual home oxygen evaluation-not on home oxygen
Aspiration precautions
Nebulizers if needed-currently not bronchospastic
Continue Advair 230mcg
Mucolytics
Acapella
Methylprednisolone 40 mg IV every 8 hours --can place back down to q12 if doing well in next [address] chest reviewed with progressed findings, possible related to progression of ILD
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
But need to rule out infection/volume
proBNP 735
PCT neg
Placed on CAP coverage (rocephin/zithromax)-Finite course of 5 days
Sputum culture-poor specimen
Quantify hemoptysis
Follow radiographically
Echocardiogram 05/08/2024-EF 55-60%, stage II diastolic dysfunction, moderate mitral stenosis, moderate mitral regurgitation, moderate aortic stenosis PA systolic 50-55
Cardiology evaluation noted
Diuresis as tolerated - now on PO lasix 20mg daily
Monitor renal function, electrolytes, intake/output, lower extremity edema and weight
Replace electrolytes as needed
Monitor blood sugars
Insulin supplementation as needed
Doubt diffuse alveolar hemorrhage given chronically stable Hgb
Follow hemoglobin
Would not tolerate bronchoscopy at this point
Per patient:
NM ST 1 y ago, colonoscopy 3 m ago, prostate exam 1 y ago: all normal
Flu shot 2020
COVID vaccinated and boosted
Ongoing daily discussions about goals of care-patient clearly wants to go home - It sounds like he may be leaning towards discharge, possibly with hospice
Confirmed code status to be DNR
Pulmonary service will continue to follow along
Diagnostic tests:
CXR PA/lat 10-20, c/w property management supervisor CT films
CXR 09-04-13: c/w 10-28-11- No gross parenchymal abnormalities. Mild elevation of R diaphragm
CT chest 05/06/24- No evidence of pulmonary embolus. Severe bilateral groundglass densities as described above. Significantly progressed. Probable interstitial lung disease. Superimposed pneumonia cannot be excluded. Moderate mediastinal and mild
left hilar lymphadenopathy. Likely reactive. Stable. Moderate emphysematous disease. Progressed.
Chest CTA 03-24-22 IMPRESSION:
1. No evidence of pulmonary embolism.
2. Findings suggesting scattered areas of pneumonitis/pneumonia and probable pulmonary edema/hemorrhage.
3. Underlying chronic interstitial changes.
Reports and relevant images were personally reviewed.
-----
Total time spent today was 50 minutes for this encounter. Time includes reviewing laboratory test/imaging results, reviewing pertinent medical records, obtaining and reviewing medical history, performing an appropriate exam, ordering medications,
tests and procedures. Time also includes documentation of this encounter, coordinating patient care and communicating with other healthcare professionals. Total time does not include separately billed tests performed on this date of service.
Subjective Data
-
Date of Service:
Date of Service: May 17, 2024
Chief Complaint: Pulmonary Follow Up and Dyspnea Follow Up
Subjective:
Now on 15L and doing well
No new complaints, family at bedside
Objective Data
Data Reviewed
Vital Signs / I&O / Oxygen:
Vital Signs
Temp Pulse Resp BP Pulse Ox
97.5 F 83 22 142/77 93
05/17/24 07:38 05/17/24 10:00 05/17/24 10:00 05/17/24 08:00 05/17/24 10:00
Intake and Output
05/16/24 05/17/24 05/18/24
06:59 06:59 06:59
Intake Total 100 / 100 480 / 480
Output Total 1820 / 1820 1050 / 1050
Balance -1720 / -1720 -570 / -570
SaO2 93
Nasal Cannula flow liters per 40
minute
Physical Exam
General: Respiratory Distress (n), Comfortable, Chills (n), Sweats (n) and Other (NAD)
HEENT: Normocephalic, Anicteric and Moist Mucous Membranes
Cardiovascular: S1-S2, Regular Rhythm and Peripheral Edema (n)
Respiratory: Wheeze (n), Crackles (Bilaterally), Rhonchi (n), Non-Labored Respirations and Other (Diminished breath sounds bilaterally)
GI: Soft, Non Distended, Non Tender and Normal Bowel Sounds
Neurology: Awake, Alert, Oriented and Tremors (n)
Skin: Warm, Dry, Cyanosis (n) and Jaundice (n)
Labs/Micro/Reports
Lab Data
05/17/24 05:04
05/17/24 05:04
Microbiology
05/14/24 11:13 Sputum Respiratory Culture - Final
05/14/24 11:13 Sputum Gram Stain - Final
--- NOTE | 2024-05-17 12:58 | W.PN.HOSP.TC ---
Today's Communication/Plan
-
CT chest since rales now heard and XR showed worsening lung disease, cannot differentiate if new infection
check procal
Assessment / Plan
Assessment / Plan
78yo M with PMHx of ILD, GERD, insomnia, HLD, AAA s/p repair in 2000 and 6mo ago, BPH came with SOB became apparent 1 week before admission, admitted for ILD flare with pneumonia. Patient noticed dark-colored sputum since the onset of dyspnea, with
concern for hemoptysis on admission. No improvement seen on week-lomng high dose steroids, obviously end-stage lung disease. Plan for home hospice if no further improvement
Also few months of non-specific abdominal discomfort
A/P:
#Acute hypoxic respiratory failure on 10L midline upon discharge 2/2 ILD flare and possible pneumonia with unspecified organism
#Concern for ABPA vs hemoptysis
COVID-19 and influenza PCR neg
sputum Cx neg
legionella and S.pneumonia urinary AG neg
Bcx NTD
Ceftriaxone/Azithromycin - completed
Wean off O2 if possible
Bronchodilators
Taper steroids
Pulm consult
CT chest: No PE, Severe bilateral groundglass densities as described above. Significantly progressed. Probable interstitial lung disease. Superimposed pneumonia cannot be excluded
avoid antiplatelets and anticoagulation with reported hemoptysis
ProBNP elevated to 735 (previous 278 in 2021) - Echo with preserved EF, mild concentric hypertrophy, BNP back to 322 after diuresis
#Hyponatremia
2/2 lung disease
#AAA s/p repair
with chronic abd discomfort
CT abd with 5.6cm AAA and iliac stent
Vascular consult: known postOP discomfort without concerning findings on CT
#Anemia of chronic disease
#B12 deficiency
Cyanocobalamin IM
High retics and mildly elevated LDH - check GIOVANNA
check FOBT
#bilirubinemia on admission
minimal
Resolved
#HLD
#Chronic pain
#GERD
#anxiety d/o
#Insomnia
#BPH with PMHX of prostate CA
#Opioid-induced constipation, chronic
cont home meds
#Irregular HR
mostly sinus on tele
cont tele
EKG
DVT ppx SCDs since also concern for hemoptysis
FUll code
I have spent at least 59min reviewing the chart, test results, communication with consultants and direct patient care
Anticipated Discharge: > 48 hours
Subjective/Interval History
-
Date of Service: May 17, 2024
Objective Data
-
Labs:
Laboratory Results
05/17/24
05:04
WBC 13.1 H
Hgb 12.7 L
Hct 37.9 L
Plt Count 229
Sodium 132 L
Potassium 4.6
Chloride 98
Carbon Dioxide 28
BUN 25 H
Creatinine 0.5 L
Glucose 138 H
Calcium 8.9
Vital Signs:
Vital Signs
Temp Pulse Resp BP Pulse Ox
97.5 F 91 20 133/75 93
05/17/24 07:38 05/17/24 12:00 05/17/24 12:00 05/17/24 11:22 05/17/24 12:00
I&O
05/16/24 05/17/24 05/18/24
06:59 06:59 06:59
Intake Total 100 / 100 480 / 480
Output Total 1820 / 1820 1050 / 1050
Balance -1720 / -1720 -570 / -570
Review of Systems
-
History Source: Patient
All other systems: Reviewed and negative
Physical Exam
-
General: No Apparent Distress
Respiratory: Rales
GI: Soft, Nontender and Nondistended
Musculoskeletal: No Clubbing, No Cyanosis and No Edema
Neuro: Awake, Alert, Oriented and AO x 3
Psych: Calm
--- NOTE | 2024-05-17 18:35 | PTCARENOTE ---
Addendum entered by Stefany Roberts RN 05/17/24 19:00:
Otherwise he was oob in chair few hours today. Ox3, Weaned to 12L Midflow tubing maintaining 94%. Ins. wheezing throughout. Appetite fair- no BM today despite PRN Dulcolax. May need further intervention. Voided 750 ml this afternoon .
Original Note:
Found 18 second strip of VT- d/w cc Dr. Quintero. Strip placed on chart. Had few episodes of ST earlier with activity. Monitor for now.
--- NOTE | 2024-05-17 19:54 | PTCARENOTE ---
This RN collected Pts own medication Kelvin, had brought the medication in from home for her . When giving this RN the medication Pt did admit to taking one already today without making the care team aware. Pt educated upon the
importance of not taking any medications without them being administered by the RN. Pt receptive of information. medication sent to [facility] in pharmacy to be labeled. ALYCE Oleary made aware.
[2024-05-17] MEDS: CRESTOR 20 MG PO (21:02)
[2024-05-17] MEDS: FLOMAX 0.4 MG PO (21:02)
[2024-05-17] MEDS: PEPCID 10 MG PO (21:02)
[2024-05-17] MEDS: EFFEXOR XR 37.5 MG PO (21:02)
[2024-05-17] MEDS: PROTONIX 40 MG PO (21:02)
[2024-05-17] MEDS: AMBIEN 10 MG PO (22:07)
[2024-05-17] MEDS: NON-FORMULARY ITEM PO (22:07)
[2024-05-18] VITALS (11 sets, daily range): BP systolic 120–155; BP diastolic 66–110; BMI 24.7
[2024-05-18] MEDS: MORPHINE SULFATE 1 MG IV ×3 (04:51→20:58)
[2024-05-18 05:04] LABS: % Basophils 0.2 % (0-2); % Eosinophils 0.1 % (0-6); % Immature Granulocytes 1.6 % (0-0.5); % Lymphocytes 2.5 % (20.5-51.1); % Monocytes 5.3 % (1.7-9.3); % Neutrophils 90.3 % (42.2-75.2); Absolute Immature Granulocytes 0.3 10^3/uL (0-0.05); Absolute Lymphocytes 0.4 10^3/uL (1.2-3.4); Absolute Monocytes 0.9 10^3/uL (0.1-0.6); Hematocrit 38.9 % (39.0-52.0); Mean Corp Hgb Conc. 33.4 g/dL (33.0-37.0); Mean Corpuscular Hgb 30.6 pg (27.0-31.0); Mean Corpuscular Volume 91.5 fL (80.0-94.0); Mean Platelet Volume 9.2 fL (7.4-10.4); Nucleated Red Blood Cells % 0 % (-); Platelet Count 233 10^3/uL (130-400); Red Blood Cell Count 4.25 10^6/uL (4.70-6.10); Red Cell Dist. Width 16.2 % (11.5-14.5); White Blood Cell Count 16.7 10^3/uL (4.8-10.8)
[2024-05-18 05:46] LABS: Procalcitonin < 0.05 ng/ml (0.0-0.25)
[2024-05-18] MEDS: DUONEB 3 ML INH ×4 (07:41→19:48)
[2024-05-18] MEDS: CYANOCOBALAMIN 1000 MCG IM (08:51)
[2024-05-18] MEDS: HEPARIN 5000 UNITS SC ×2 (08:51→20:57)
[2024-05-18] MEDS: LASIX 20 MG PO (08:52)
[2024-05-18] MEDS: SOLU-MEDROL PF 40 MG IV ×4 (08:53→23:53)
--- NOTE | 2024-05-18 08:55 | W.PN.HOSP.TC ---
Addendum entered and electronically signed by Puneet Yung MD 05/18/24 09:18:
#NSVT
2/2 hypoxemia
electrolytes WNL
monitor
Original Note:
Today's Communication/Plan
-
cont steroids
Hospice consult
Assessment / Plan
Assessment / Plan
78yo M with PMHx of ILD, GERD, insomnia, HLD, AAA s/p repair in 2000 and 6mo ago, BPH came with SOB became apparent 1 week before admission, admitted for ILD flare with pneumonia. Patient noticed dark-colored sputum since the onset of dyspnea, with
concern for hemoptysis on admission. No improvement seen on week-long high dose steroids, obviously end-stage lung disease. Repeated CT chest with worsening inflammation that is most likely aseptic with absent fevers and normal Procalcitonin. Plan
for home hospice if no further improvement
A/P:
#Acute hypoxic respiratory failure on 10L midline upon discharge 2/2 ILD flare and possible pneumonia with unspecified organism
#Concern for ABPA vs hemoptysis
COVID-19 and influenza PCR neg
sputum Cx neg
legionella and S.pneumonia urinary AG neg
Bcx NTD
Ceftriaxone/Azithromycin - completed
Wean off O2 if possible
Bronchodilators
Taper steroids
Pulm consult
CT chest: No PE, Severe bilateral groundglass densities as described above. Significantly progressed. Probable interstitial lung disease. Superimposed pneumonia cannot be excluded
avoid antiplatelets and anticoagulation with reported hemoptysis
ProBNP elevated to 735 (previous 278 in 2021) - Echo with preserved EF, mild concentric hypertrophy, BNP back to 322 after diuresis
#Hyponatremia
2/2 lung disease
#AAA s/p repair
with chronic abd discomfort
CT abd with 5.6cm AAA and iliac stent
Vascular consult: known postOP discomfort without concerning findings on CT
#Anemia of chronic disease
#B12 deficiency
Cyanocobalamin IM
High retics and mildly elevated LDH - check GIOVANNA
check FOBT
#bilirubinemia on admission
minimal
Resolved
#HLD
#Chronic pain
#GERD
#anxiety d/o
#Insomnia
#BPH with PMHX of prostate CA
#Opioid-induced constipation, chronic
cont home meds
#Irregular HR
mostly sinus on tele
cont tele
EKG
DVT ppx SCDs since also concern for hemoptysis
FUll code
I have spent at least 59min reviewing the chart, test results, communication with consultants and direct patient care
Anticipated Discharge: > 48 hours
Subjective/Interval History
-
Date of Service: May 18, 2024
Objective Data
-
Labs:
Laboratory Results
05/18/24
04:46
WBC 16.7 H
Hgb 13.0
Hct 38.9 L
Plt Count 233
Vital Signs:
Vital Signs
Temp Pulse Resp BP Pulse Ox
96.3 F L 95 24 128/67 90
05/18/24 07:11 05/18/24 07:43 05/18/24 07:43 05/18/24 06:00 05/18/24 07:43
I&O
05/17/24 05/18/24 05/19/24
06:59 06:59 06:59
Intake Total 480 / 480 960 / 960
Output Total 1050 / 1050 1250 / 1250
Balance -570 / -570 -290 / -290
Review of Systems
-
History Source: Patient
All other systems: Reviewed and negative
Physical Exam
-
General: Comfortable
Respiratory: Crackles
Neuro: Awake, Alert, Oriented and AO x 3
Psych: Calm
--- NOTE | 2024-05-18 12:07 | W.PN.PUL3 ---
Today's Communication / Plan
-
Remains on 15L midflow, sats 90% and marginal, but able to stay off HFNC past 24 hours
He is now agreeing to hospice and wants to go home
Care team to arrange, discharge planning pending
Can follow up as OP if he should improve
Assessment
-
Patient is a 78-year-old male with previous history of ILD, COPD, hyperlipidemia presenting to ER for shortness of breath that has been ongoing for the past few days. He reportedly had oxygen desaturation at home into the 80s. He has also
comorbid mild coughing, productive mucus, abdominal discomfort, bloating. In ER, he was hypoxemic, now placed on 10L MF. CT showing worsening groundglass opacities and ILD findings compared to prior. He does feel his functional capacity has
declined. We are consulted for eval.
Impression:
Acute hypoxic respiratory failure now on high-flow nasal cannula
Acute on chronic SOB
Suspect progression of pulmonary fibrosis
Hemoptysis (non-life threatening)
Abnormal CT, increased GGOs
Lactic acidosis (resolved since 05/05/2024)
Hyponatremia
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
CT Chest 03/24/22 revealed mild-moderate centrilobular and paraseptal emphysematous changes; also with fibrosis/traction bronchiectasis/honeycombing
DLCO is moderately impaired at 45%. Last 6MWT showing wesley at 88% with quick recovery, not needing O2
COPD/emphysema, follows Dr Martinez
PFT obtained showing no obstruction and improved from prior.
Spiriva taken daily, continue albuterol inhaler as needed.
Mediastinal LAD: unknown chronicity and etiology, could be associated with ILD
AAA repair 1999 HUP
Moderate mitral stenosis
Moderate mitral regurgitation
Moderate aortic stenosis
Former smoker: 2 ppd for 40 y, quit Jul 1999
Chronic lumbar pain, on oxycodone
HLD
Reported ulcerative colitis
Constipation
Insomnia, on zolpidem
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
Fracture proximal phalanx of lesser toe (L) Mar 2021
Plan:
Respiratory status continues to be improving slowly--now on 15L midflow, continue to wean as tolerated
Able to stay off HFNC past 24 hours
Aspiration precautions
Nebulizers if needed-currently not bronchospastic
Continue Advair 230mcg
Mucolytics
Acapella
Methylprednisolone 40 mg IV every 8 hours --can place back down to q12 if doing well in next [address] chest reviewed with progressed findings, possible related to progression of ILD
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
But need to rule out infection/volume
proBNP 735
PCT neg
Placed on CAP coverage (rocephin/zithromax)-Finite course of 5 days
Sputum culture-poor specimen
Quantify hemoptysis
Follow radiographically
Echocardiogram 05/08/2024-EF 55-60%, stage II diastolic dysfunction, moderate mitral stenosis, moderate mitral regurgitation, moderate aortic stenosis PA systolic 50-55
Cardiology evaluation noted
Diuresis as tolerated - now on PO lasix 20mg daily
Monitor renal function, electrolytes, intake/output, lower extremity edema and weight
Replace electrolytes as needed
Monitor blood sugars
Insulin supplementation as needed
Doubt diffuse alveolar hemorrhage given chronically stable Hgb
Follow hemoglobin
Would not tolerate bronchoscopy at this point
Per patient:
NM ST 1 y ago, colonoscopy 3 m ago, prostate exam 1 y ago: all normal
Flu shot 2020
COVID vaccinated and boosted
Ongoing daily discussions about goals of care-patient clearly wants to go home - It sounds like he may be leaning towards discharge, possibly with hospice
Confirmed code status to be DNR
Hospice discussions, he is in agreement now and wants to go home
Diagnostic tests:
CXR PA/lat 10-20, c/w oceanography teacher CT films
CXR 09-04-13: c/w 10-28-11- No gross parenchymal abnormalities. Mild elevation of R diaphragm
CT chest 05/06/24- No evidence of pulmonary embolus. Severe bilateral groundglass densities as described above. Significantly progressed. Probable interstitial lung disease. Superimposed pneumonia cannot be excluded. Moderate mediastinal and mild
left hilar lymphadenopathy. Likely reactive. Stable. Moderate emphysematous disease. Progressed.
Chest CTA 03-24-22 IMPRESSION:
1. No evidence of pulmonary embolism.
2. Findings suggesting scattered areas of pneumonitis/pneumonia and probable pulmonary edema/hemorrhage.
3. Underlying chronic interstitial changes.
Reports and relevant images were personally reviewed.
-----
Total time spent today was 50 minutes for this encounter. Time includes reviewing laboratory test/imaging results, reviewing pertinent medical records, obtaining and reviewing medical history, performing an appropriate exam, ordering medications,
tests and procedures. Time also includes documentation of this encounter, coordinating patient care and communicating with other healthcare professionals. Total time does not include separately billed tests performed on this date of service.
Subjective Data
-
Date of Service:
Date of Service: May 18, 2024
Chief Complaint: Pulmonary Follow Up and Dyspnea Follow Up
Subjective:
90% on 15L but had remained off HFNC for 24 hours
He is now wishing to go on hospice
Objective Data
Data Reviewed
Vital Signs / I&O / Oxygen:
Vital Signs
Temp Pulse Resp BP Pulse Ox
97.6 F 94 22 148/73 92
05/18/24 11:21 05/18/24 11:59 05/18/24 11:59 05/18/24 10:00 05/18/24 11:59
Intake and Output
05/17/24 05/18/24 05/19/24
06:59 06:59 06:59
Intake Total 480 / 480 960 / 960 480 / 480
Output Total 1050 / 1050 1250 / 1250
Balance -570 / -570 -290 / -290 480 / 480
SaO2 92
Nasal Cannula flow liters per 15
minute
Physical Exam
General: Respiratory Distress (n), Comfortable, Chills (n), Sweats (n) and Other (NAD)
HEENT: Normocephalic, Anicteric and Moist Mucous Membranes
Cardiovascular: S1-S2, Regular Rhythm and Peripheral Edema (n)
Respiratory: Wheeze (n), Crackles (Bilaterally), Rhonchi (n), Non-Labored Respirations and Other (Diminished breath sounds bilaterally)
GI: Soft, Non Distended, Non Tender and Normal Bowel Sounds
Neurology: Awake, Alert, Oriented and Tremors (n)
Skin: Warm, Dry, Cyanosis (n) and Jaundice (n)
Labs/Micro/Reports
Lab Data
05/18/24 04:46
05/17/24 05:04
--- NOTE | 2024-05-18 12:09 | CM ---
Patient seen at bedside, Patient states that he is awaiting family arrival and would like to meet with hospice person to review options and discuss. CM sent referral to [facility] hospice for meeting and updated Vanita. Awaiting time for family meeting. CM
will continue to follow for discharge planning needs.
Plan; hospice eval; meeting
--- NOTE | 2024-05-18 12:33 | HOSPNOTE ---
Meeting with family and patient scheduled at 2:30pm today to discuss hospice
--- NOTE | 2024-05-18 14:09 | PTCARENOTE ---
made aware that family is all now at bedside for discussions.
--- NOTE | 2024-05-18 14:33 | PTCARENOTE ---
Assumed care of pt this am. Pt assessed, AAOx3, able to make needs known. 93% on 15L midflow. Dyspneic/tachypneic upon standing or changing positions. Plan to go home on hospice tomorrow 05/19. Call pulido and belongings within reach. Will continue to
monitor.
--- NOTE | 2024-05-18 15:31 | HOSPNOTE ---
Met with family to discuss home hospice. Dr Puneet Yung present on hospice nurses arrival to bedside. Discussed going home on 10 liter nc. Currently on 15 L nc. Explained hospice care at its services to patient and family. Family will move
furniture tomorrow and equipment can be delivered Wednesday afternoon. Plan to discharge home on hospice on Wednesday morning if possible. Will need morphine and lorazepam sublingual from [facility] to ensure comfort.
[2024-05-18] MEDS: EFFEXOR XR 37.5 MG PO (20:56)
[2024-05-18] MEDS: CRESTOR 20 MG PO (20:56)
[2024-05-18] MEDS: FLOMAX 0.4 MG PO (20:56)
[2024-05-18] MEDS: PEPCID 10 MG PO (20:57)
[2024-05-18] MEDS: PROTONIX 40 MG PO (20:57)
[2024-05-18] MEDS: NON-FORMULARY ITEM 25 MG PO (20:59)
[2024-05-18] MEDS: AMBIEN 10 MG PO (22:03)
--- NOTE | 2024-05-18 22:40 | PTCARENOTE ---
assumed care of patient. patient aox3 and NSR on monitor. Patient on midflow at 15 liters. Patient reported shortness of breath and asked for morphine, see MAR. O2 sats will drop into 80s when standing to use urinal. Assessment and VS charted.
Patient resting in bed with call pulido in reach.
[2024-05-19] VITALS (12 sets, daily range): BP systolic 118–161; BP diastolic 71–96
[2024-05-19] MEDS: DUONEB 3 ML INH ×4 (07:18→19:52)
[2024-05-19] MEDS: CYANOCOBALAMIN 1000 MCG IM (09:14)
[2024-05-19] MEDS: MORPHINE SULFATE 1 MG IV ×4 (09:14→22:13)
[2024-05-19] MEDS: HEPARIN 5000 UNITS SC ×2 (09:15→21:04)
[2024-05-19] MEDS: LASIX 20 MG PO (09:15)
[2024-05-19] MEDS: SOLU-MEDROL PF 40 MG IV ×3 (09:15→23:57)
--- NOTE | 2024-05-19 10:18 | W.PN.PUL3 ---
Today's Communication / Plan
-
No complaints today, satting 95% on 13L, slowly improving
He has decided he would like to go home on hospice, plan for discharge in AM
If he should improve and feel he would like to FU can let us know as OP
Otherwise, will sign off at this time
Discharge planning per team
Assessment
-
Patient is a 78-year-old male with previous history of ILD, COPD, hyperlipidemia presenting to ER for shortness of breath that has been ongoing for the past few days. He reportedly had oxygen desaturation at home into the 80s. He has also
comorbid mild coughing, productive mucus, abdominal discomfort, bloating. In ER, he was hypoxemic, now placed on 10L MF. CT showing worsening groundglass opacities and ILD findings compared to prior. He does feel his functional capacity has
declined. We are consulted for eval.
Impression:
Acute hypoxic respiratory failure now on high-flow nasal cannula
Acute on chronic SOB
Suspect progression of pulmonary fibrosis
Hemoptysis (non-life threatening)
Abnormal CT, increased GGOs
Lactic acidosis (resolved since 05/05/2024)
Hyponatremia
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
CT Chest 03/24/22 revealed mild-moderate centrilobular and paraseptal emphysematous changes; also with fibrosis/traction bronchiectasis/honeycombing
DLCO is moderately impaired at 45%. Last 6MWT showing wesley at 88% with quick recovery, not needing O2
COPD/emphysema, follows Dr Martinez
PFT obtained showing no obstruction and improved from prior.
Spiriva taken daily, continue albuterol inhaler as needed.
Mediastinal LAD: unknown chronicity and etiology, could be associated with ILD
AAA repair 1999 HUP
Moderate mitral stenosis
Moderate mitral regurgitation
Moderate aortic stenosis
Former smoker: 2 ppd for 40 y, quit Jul 1999
Chronic lumbar pain, on oxycodone
HLD
Reported ulcerative colitis
Constipation
Insomnia, on zolpidem
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
Fracture proximal phalanx of lesser toe (L) Mar 2021
Plan:
Respiratory status continues to be improving slowly--now on 15L midflow, continue to wean as tolerated
Able to stay off HFNC past 24 hours
Aspiration precautions
Nebulizers if needed-currently not bronchospastic
Continue Advair 230mcg
Mucolytics
Acapella
Methylprednisolone 40 mg IV every 8 hours --can place back down to q12 if doing well in next [address] chest reviewed with progressed findings, possible related to progression of ILD
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
But need to rule out infection/volume
proBNP 735
PCT neg
Placed on CAP coverage (rocephin/zithromax)-Finite course of 5 days
Sputum culture-poor specimen
Quantify hemoptysis
Follow radiographically
Echocardiogram 05/08/2024-EF 55-60%, stage II diastolic dysfunction, moderate mitral stenosis, moderate mitral regurgitation, moderate aortic stenosis PA systolic 50-55
Cardiology evaluation noted
Diuresis as tolerated - now on PO lasix 20mg daily
Monitor renal function, electrolytes, intake/output, lower extremity edema and weight
Replace electrolytes as needed
Monitor blood sugars
Insulin supplementation as needed
Doubt diffuse alveolar hemorrhage given chronically stable Hgb
Follow hemoglobin
Would not tolerate bronchoscopy at this point
Per patient:
NM ST 1 y ago, colonoscopy 3 m ago, prostate exam 1 y ago: all normal
Flu shot 2020
COVID vaccinated and boosted
Ongoing daily discussions about goals of care-patient clearly wants to go home - It sounds like he may be leaning towards discharge, possibly with hospice
Confirmed code status to be DNR
Hospice discussions, he is in agreement now and wants to go home
Diagnostic tests:
CXR PA/lat 03-26, c/w washroom operator CT films
CXR 09-04-13: c/w 10-28-11- No gross parenchymal abnormalities. Mild elevation of R diaphragm
CT chest 05/06/24- No evidence of pulmonary embolus. Severe bilateral groundglass densities as described above. Significantly progressed. Probable interstitial lung disease. Superimposed pneumonia cannot be excluded. Moderate mediastinal and mild
left hilar lymphadenopathy. Likely reactive. Stable. Moderate emphysematous disease. Progressed.
Chest CTA 03-24-22 IMPRESSION:
1. No evidence of pulmonary embolism.
2. Findings suggesting scattered areas of pneumonitis/pneumonia and probable pulmonary edema/hemorrhage.
3. Underlying chronic interstitial changes.
Reports and relevant images were personally reviewed.
-----
Total time spent today was 50 minutes for this encounter. Time includes reviewing laboratory test/imaging results, reviewing pertinent medical records, obtaining and reviewing medical history, performing an appropriate exam, ordering medications,
tests and procedures. Time also includes documentation of this encounter, coordinating patient care and communicating with other healthcare professionals. Total time does not include separately billed tests performed on this date of service.
Subjective Data
-
Date of Service:
Date of Service: May 19, 2024
Chief Complaint: Pulmonary Follow Up and Dyspnea Follow Up
Objective Data
Data Reviewed
Vital Signs / I&O / Oxygen:
Vital Signs
Temp Pulse Resp BP Pulse Ox
97.6 F 85 24 140/80 95
05/19/24 04:12 05/19/24 07:19 05/19/24 07:19 05/19/24 04:00 05/19/24 07:19
Intake and Output
05/18/24 05/19/24 05/20/24
06:59 06:59 06:59
Intake Total 960 / 960 480 / 480
Output Total 1250 / 1250 1000 / 1000
Balance -290 / -290 -520 / -520
SaO2 95
Nasal Cannula flow liters per 15
minute
Physical Exam
General: Respiratory Distress (n), Comfortable, Chills (n), Sweats (n) and Other (NAD)
HEENT: Normocephalic, Anicteric and Moist Mucous Membranes
Cardiovascular: S1-S2, Regular Rhythm and Peripheral Edema (n)
Respiratory: Wheeze (n), Crackles (Bilaterally), Rhonchi (n), Non-Labored Respirations and Other (Diminished breath sounds bilaterally)
GI: Soft, Non Distended, Non Tender and Normal Bowel Sounds
Neurology: Awake, Alert, Oriented and Tremors (n)
Skin: Warm, Dry, Cyanosis (n) and Jaundice (n)
Labs/Micro/Reports
Lab Data
05/18/24 04:46
05/17/24 05:04
--- NOTE | 2024-05-19 10:41 | HOSPNOTE ---
Visited patient in preparation for home hospice tomorrow. Discussed the possibility of a ovalles catheter for energy conservation with SOB. He is unable to urinate without standing, He will think about this and decide later today. Would recommend
ovalles placement prior to discharge.
--- NOTE | 2024-05-19 12:40 | W.PN.HOSP.TC ---
Today's Communication/Plan
-
possible d/c home with hospice in AM if services ready
Assessment / Plan
Assessment / Plan
78yo M with PMHx of ILD, GERD, insomnia, HLD, AAA s/p repair in 2000 and 6mo ago, BPH came with SOB became apparent 1 week before admission, admitted for ILD flare with pneumonia. Patient noticed dark-colored sputum since the onset of dyspnea, with
concern for hemoptysis on admission. No improvement seen on week-long high dose steroids, obviously end-stage lung disease. Repeated CT chest with worsening inflammation that is most likely aseptic with absent fevers and normal Procalcitonin.
Patient decided to establish service with hospice at home. Attempting to wean down to 10L NC before d/c
A/P:
#Acute hypoxic respiratory failure on 10L midline upon discharge 2/2 ILD flare and possible pneumonia with unspecified organism
#Concern for ABPA vs hemoptysis
COVID-19 and influenza PCR neg
sputum Cx neg
legionella and S.pneumonia urinary AG neg
Bcx NTD
Ceftriaxone/Azithromycin - completed
Wean off O2 if possible
Bronchodilators
Taper steroids
Pulm consult
CT chest: No PE, Severe bilateral groundglass densities as described above. Significantly progressed. Probable interstitial lung disease. Superimposed pneumonia cannot be excluded
avoid antiplatelets and anticoagulation with reported hemoptysis.
ProBNP elevated to 735 (previous 278 in 2021) - Echo with preserved EF, mild concentric hypertrophy, BNP back to 322 after diuresis
#Hyponatremia
2/2 lung disease
#AAA s/p repair
with chronic abd discomfort
CT abd with 5.6cm AAA and iliac stent
Vascular consult: known postOP discomfort without concerning findings on CT
#Anemia of chronic disease
#B12 deficiency
Cyanocobalamin IM
High retics and mildly elevated LDH - check GIOVANNA
check FOBT
#bilirubinemia on admission
minimal
Resolved
#HLD
#Chronic pain
#GERD
#anxiety d/o
#Insomnia
#BPH with PMHX of prostate CA
#Opioid-induced constipation, chronic
cont home meds
#Irregular HR
mostly sinus on tele
cont tele
EKG
DVT ppx SCDs since also concern for hemoptysis
FUll code
I have spent at least 59min reviewing the chart, test results, communication with consultants and direct patient care
Anticipated Discharge: Within 24 hours
Subjective/Interval History
-
Date of Service: May 19, 2024
Objective Data
-
Vital Signs:
Vital Signs
Temp Pulse Resp BP Pulse Ox
97.3 F 86 15 131/71 95
05/19/24 07:10 05/19/24 10:00 05/19/24 10:00 05/19/24 10:00 05/19/24 10:00
I&O
05/18/24 05/19/24 05/20/24
06:59 06:59 06:59
Intake Total 960 / 960 480 / 480
Output Total 1250 / 1250 1000 / 1000
Balance -290 / -290 -520 / -520
Review of Systems
-
History Source: Patient
All other systems: Reviewed and negative
Physical Exam
-
General: No Apparent Distress
Neuro: Awake, Alert, Oriented and AO x 3
Psych: Calm
[2024-05-19] MEDS: ROXICODONE 10 MG PO (12:57)
--- NOTE | 2024-05-19 16:16 | CM ---
O2 15L midflow. Receiving IV Steroids.
Messages with nurse [facility] hospice ordered 2 O2 concentrators as nurse informed them patient currently on 15L O2.
Met with patient, , daughter with Swathi from [facility] on speaker phone;
patient and are ready for d/c tomorrow to home with [facility] and are aware ambulance transport is ordered for 11am. IMM completed.
confirms all DME has been received at home including hospital bed and O2 concentrators.
Patient wanted to discuss pain meds for discharge- he was advised to take pain meds prior to d/c as needed, and family will hand picker his meds at [facility]. Swathi informed them that Hospice nurse Ariella will meet with them around noon
tomorrow and will have additional meds available for pain/anxiety as needed, which reassured the patient and .
Out of Hospital DNR form on chart for MD signature.
Plan home tomorrow by ambulance at 11am with [facility]
--- NOTE | 2024-05-19 16:25 | PTCARENOTE ---
Pt presents as assessed. Aox3, very pleasant. Satting low 90's on 15L MFNC. Desats to 80's when standing to void but recovers. PRN Morphine administered for SOB, see MAR. and many family members/visitors at bedside, educated on plan of care and
emotional support provided. Pt ringing appropriately, call pulido within reach.
[2024-05-19] MEDS: PROTONIX 40 MG PO (21:05)
[2024-05-19] MEDS: PEPCID 10 MG PO (21:05)
[2024-05-19] MEDS: EFFEXOR XR 37.5 MG PO (21:05)
[2024-05-19] MEDS: CRESTOR 20 MG PO (21:05)
[2024-05-19] MEDS: FLOMAX 0.4 MG PO (21:05)
[2024-05-19] MEDS: NON-FORMULARY ITEM 25 MG PO (22:12)
[2024-05-19] MEDS: AMBIEN 10 MG PO (22:12)
--- NOTE | 2024-05-19 22:41 | PTCARENOTE ---
Assumed care of patient. Patient is Aox3 and pleasant. NSR on monitor. Patient is on 13L midflow sating in high 90s. Patient will desat into mid to low 80s when standing to void. Family at the bedside. Patient resting in bed with call pulido in reach.
assessment and VS as documented.
[2024-05-20] VITALS (8 sets, daily range): BP systolic 109–155; BP diastolic 67–92
[2024-05-20] MEDS: MORPHINE SULFATE 1 MG IV ×3 (03:00→11:00)
[2024-05-20] MEDS: LASIX 20 MG PO (07:41)
[2024-05-20] MEDS: SOLU-MEDROL PF 40 MG IV (07:41)
[2024-05-20] MEDS: CYANOCOBALAMIN IM (07:57)
[2024-05-20] MEDS: DUONEB INH (07:57)
[2024-05-20] MEDS: HEPARIN SC (07:58)
[2024-05-20] MEDS: DUONEB 3 ML INH (08:00)
--- NOTE | 2024-05-20 08:19 | W.PN.HOSP.TC ---
Today's Communication/Plan
-
dc
Assessment / Plan
Assessment / Plan
78yo M with PMHx of ILD, GERD, insomnia, HLD, AAA s/p repair in 2000 and 6mo ago, BPH came with SOB became apparent 1 week before admission, admitted for ILD flare with pneumonia. Patient noticed dark-colored sputum since the onset of dyspnea, with
concern for hemoptysis on admission. No improvement seen on week-long high dose steroids, obviously end-stage lung disease. Repeated CT chest with worsening inflammation that is most likely aseptic with absent fevers and normal Procalcitonin.
Patient decided to establish service with hospice at home. As per CM - hospice can establish up to 15L home O2. Patient experienced significant dyspnea after even minimal exertion and this did not improve since admission. Medically stable for
transportation. As agreed with the patient - bronchodilators and steroids continue upon d/c, which does not prevent from hospice mgmt.
A/P:
#Acute hypoxic respiratory failure on 10L midline upon discharge 2/2 ILD flare and possible pneumonia with unspecified organism
#Concern for ABPA vs hemoptysis
COVID-19 and influenza PCR neg
sputum Cx neg
legionella and S.pneumonia urinary AG neg
Bcx NTD
Ceftriaxone/Azithromycin - completed
Wean off O2 if possible
Bronchodilators
Taper steroids
Pulm consult
CT chest: No PE, Severe bilateral groundglass densities as described above. Significantly progressed. Probable interstitial lung disease. Superimposed pneumonia cannot be excluded
avoid antiplatelets and anticoagulation with reported hemoptysis.
ProBNP elevated to 735 (previous 278 in 2021) - Echo with preserved EF, mild concentric hypertrophy, BNP back to 322 after diuresis
#Hyponatremia
2/2 lung disease
#AAA s/p repair
with chronic abd discomfort
CT abd with 5.6cm AAA and iliac stent
Vascular consult: known postOP discomfort without concerning findings on CT
#Anemia of chronic disease
#B12 deficiency
Cyanocobalamin IM
High retics and mildly elevated LDH - check GIOVANNA
check FOBT
#bilirubinemia on admission
minimal
Resolved
#HLD
#Chronic pain
#GERD
#anxiety d/o
#Insomnia
#BPH with PMHX of prostate CA
#Opioid-induced constipation, chronic
cont home meds
#Irregular HR
mostly sinus on tele
cont tele
EKG
DVT ppx SCDs since also concern for hemoptysis
FUll code
I have spent at least 39min reviewing the chart, test results, communication with consultants and direct patient care
Anticipated Discharge: Today
Subjective/Interval History
-
Date of Service: May 20, 2024
Objective Data
-
Vital Signs:
Vital Signs
Temp Pulse Resp BP Pulse Ox
97.6 F 88 12 132/79 92
05/20/24 03:00 05/20/24 07:40 05/20/24 06:00 05/20/24 07:40 05/20/24 07:55
I&O
05/19/24 05/20/24 05/21/24
06:59 06:59 06:59
Intake Total 480 / 480
Output Total 1000 / 1000 300 / 300
Balance -520 / -520 -300 / -300
Review of Systems
-
History Source: Patient
All other systems: Reviewed and negative
Respiratory: Reports Trouble Breathing
Physical Exam
-
General: No Apparent Distress
HEENT: Moist Mucous Membranes
Respiratory: Rales and Crackles
Cardiac: Regular Rhythm
GI: Soft, Nontender and Nondistended
Musculoskeletal: No Clubbing, No Cyanosis and No Edema
Neuro: Awake, Alert, Oriented and AO x 3
Psych: Calm
--- NOTE | 2024-05-20 08:24 | W.DCSUMMARY ---
Addendum entered and electronically signed by Puneet Yung MD 05/20/24 10:09:
Ward for end of life care as patient dyspneic with minimal activity.
Original Note:
Discharge Summary
Discharge Data
Date of Admission: 05/05/24
Date of Discharge: 05/20/24
-
Pending Results: No
Hospital Course
78yo M with PMHx of ILD, GERD, insomnia, HLD, AAA s/p repair in 2000 and 6mo ago, BPH came with SOB became apparent 1 week before admission, admitted for ILD flare with pneumonia. Patient noticed dark-colored sputum since the onset of dyspnea, with
concern for hemoptysis on admission. No improvement seen on week-long high dose steroids, obviously end-stage lung disease. Repeated CT chest with worsening inflammation that is most likely aseptic with absent fevers and normal Procalcitonin.
Patient decided to establish service with hospice at home. As per CM - hospice can establish up to 15L home O2. Patient experienced significant dyspnea after even minimal exertion and this did not improve since admission. Medically stable for
transportation. As agreed with the patient - bronchodilators and steroids continue upon d/c, which does not prevent from hospice mgmt.
I have spent at least 39min reviewing the chart, test results, communication with consultants and direct patient care
Patient was managed for:
#Acute hypoxic respiratory failure on 10L midline upon discharge 2/2 ILD flare and possible pneumonia with unspecified organism
#Concern for ABPA vs hemoptysis
#Hyponatremia
#AAA s/p repair
#Anemia of chronic disease
#B12 deficiency
#bilirubinemia on admission
#HLD
#Chronic pain
#GERD
#anxiety d/o
#Insomnia
#BPH with PMHX of prostate CA
#Opioid-induced constipation, chronic
#Irregular HR
Discharge Plan
-
Patient Disposition: Home with Hospice
Discharge Diagnosis/Procedures: ILD
Diet: Regular
Activity: As tolerated
Referrals:
Chris Yang MD [Family Provider] -
Prescriptions:
New
prednisone 10 mg Tablet
See Rx Instructions .ROUTE .COMPLEX Qty: 93 0RF
Rx Instructions:
Take By Mouth:
50 mg daily x6 days, 40 mg daily x6 days,
30 mg daily x6 days, 20 mg daily x6 days,
10 mg daily x6 days, 5 mg daily x6 days
Airsupra 90-80 mcg/actuation HFA aerosol inhaler
2 inh inhalation Q4HPRN PRN (Reason: shortness of breath) Qty: 10.7 0RF
Stiolto Respimat 2.5-2.5 mcg/actuation mist
2 puff inhalation DAILY Qty: 4 0RF
furosemide 20 mg Tablet
20 mg PO DAILY Qty: 30 0RF
Continued
zolpidem [Ambien] 10 mg Tablet
10 mg PO HS
Patient Comments:
05/05/24: last filled 02/18/24 for 90 tablets over 90 days
rosuvastatin 20 mg Tablet
20 mg PO HS
venlafaxine 37.5 mg Capsule,Extended Release 24hr
37.5 mg PO HS
famotidine 10 mg Tablet
10 mg PO HS
bisacodyl [Dulcolax (bisacodyl)] 5 mg Tablet,Delayed Release (Dr/Ec)
5 mg PO DAILYPRN PRN (Reason: constipation)
pantoprazole 40 mg tablet,delayed release (DR/EC)
40 mg PO HS
tamsulosin 0.4 mg Capsule
0.4 mg PO HS
tamsulosin [Flomax] 0.4 mg Capsule
0.4 mg PO DAILY
Discontinued
Movantik 25 mg Tablet
25 mg PO HS
Rx Instructions:
must be taken on empty stomach; no food 1 hr after or 2-3 hrs before dose
oxycodone-acetaminophen 10-325 mg Tablet
1 tab PO Q4H
Patient Comments:
05/05/24: last filled 04/18/24 for 180 tablets over 30 days
Spiriva Respimat 2.5 mcg/actuation Mist
2 inh INHALATION R DAILY
albuterol sulfate [Ventolin HFA] 90 mcg/actuation HFA aerosol inhaler
2 puff inhalation R Q6HPRN PRN (Reason: shortness of breath or wheezing)
Discharge Orders:
Discharge Patient (As Directed); Ordered 05/20/24
Ordered By: Puneet Yung
Discharge Date and Time
Print Language: FILIPINO
--- NOTE | 2024-05-20 11:24 | PTCARENOTE ---
Assumed care at 0700. VSS. SaO2 stable on 13L midflow. Able to wean to 10L in anticipation for transport (max O2 is 10L per transport crew). Ward placed for end of life care, care discussed w/ patient and .
--- NOTE | 2024-05-20 15:54 | CHAP ---
Visited Mr. Richards at 8:45am. He was accepting and peaceful, 'ready to move forward,' in his words. He has jax, hope and love, and is surrounded by caring family. Emotional and spiritual support provided.
== END 2024-05-20 11:31 | disposition hospice, home (50) | DRG 196 ==
LOC: IMU 15:48
PROVIDERS: Internal Medicine; Internal Medicine Critical Care Medicine; Nurse Practitioner Gerontology; ADMITTING PHYSICIAN Hospitalist; ATTENDING PHYSICIAN Internal Medicine; CONSULT PHYSICIAN Internal Medicine; CONSULT PHYSICIAN Internal Medicine Cardiovascular Disease; EMERGENCY PHYSICIAN Student in an Organized Health Care Education/Training Program; FAMILY PHYSICIAN Family Medicine; OTHER PHYSICIAN Surgery
DX: J84.10 Pulmonary fibrosis, unspecified (principal); I50.33 Acute on chronic diastolic (congestive) heart failure; J18.9 Pneumonia, unspecified organism; J96.01 Acute respiratory failure with hypoxia; J44.0 Chronic obstructive pulmonary disease with (acute) lower respiratory infection; R04.2 Hemoptysis; E87.1 Hypo-osmolality and hyponatremia; R17 Unspecified jaundice; E87.20 Acidosis, unspecified; B44.81 Allergic bronchopulmonary aspergillosis; I47.29 Other ventricular tachycardia; Z51.5 Encounter for palliative care; I11.0 Hypertensive heart disease with heart failure; E78.00 Pure hypercholesterolemia, unspecified; D63.8 Anemia in other chronic diseases classified elsewhere; K59.03 Drug induced constipation; T40.2X5A Adverse effect of other opioids, initial encounter; Z66 Do not resuscitate; I71.41 Pararenal abdominal aortic aneurysm, without rupture; I08.3 Combined rheumatic disorders of mitral, aortic and tricuspid valves; C61 Malignant neoplasm of prostate; E53.8 Deficiency of other specified B group vitamins; F41.9 Anxiety disorder, unspecified; R82.998 Other abnormal findings in urine; N40.0 Benign prostatic hyperplasia without lower urinary tract symptoms; K21.9 Gastro-esophageal reflux disease without esophagitis; G47.00 Insomnia, unspecified; G89.29 Other chronic pain; M54.50 Low back pain, unspecified; Z11.52 Encounter for screening for COVID-19; Z86.79 Personal history of other diseases of the circulatory system; Z87.891 Personal history of nicotine dependence
CPT/HCPCS: 36430; 71046; 71260; 71275; 74177; 80048; 80053; 81003; 82607; 82728; 82746; 82805; 83010; 83540; 83550; 83605; 83615; 83735; 83880; 84100; 84145; 85025; 85027; 85045; 86140; 86803; 86880; 87040; 87070; 87205; 87449; 87502; 87811; 87899; 93005; 93306; 94640; 96361; 96365; 96375; 97163; 99291; Q9967